=== PATIENT | female | born 1965 | race Hispanic/Latino ===

== ENCOUNTER 2017-11-13 21:01 | Emergency (ER) | payer MEDICAID, SELFPAY ==
[2017-11-13 21:03] VITALS: BP 107/72; PULSE 175; RESP 18; TEMP 36.9; O2SAT 97; BMI 27.8
[2017-11-13 21:10] VITALS: BP 122/87; PULSE 176; RESP 16; O2SAT 96
--- NOTE | 2017-11-13 21:21 | RAD_ITS ---
STUDY: X-RAY CHEST REASON FOR EXAM: Female, 52 years old. Palpitations TECHNIQUE: Single AP portable view of the chest. COMPARISON: None. FINDINGS: monitor and storage bin tender leads are present The lungs are clear and expanded. There is no demonstrated pleural abnormality. Normal size heart. Normal mediastinum and linda. Normal visualized pulmonary arteries. Normal visualized aortic arch and descending thoracic aorta. Normal visualized thoracic spine. Normal visualized ribs, clavicles, and shoulders. There is no demonstrated abnormality of the visualized soft tissue structures of the upper abdomen. RAD/Chest 1 View (Portable) IMPRESSION: Normal x-ray examination of the chest. Electronically Signed: Leonid Moore MD at 21:55 EDT , Service support ,
--- NOTE | 2017-11-13 21:21 | EKG12_ITS ---
Test Reason : SVT Blood Pressure : / mmHG Vent. Rate : 171 BPM Atrial Rate : 170 BPM P-R Int : 000 ms QRS Dur : 076 ms QT Int : 276 ms P-R-T Axes : 000 052 -49 degrees QTc Int : 465 ms Supraventricular tachycardia Nonspecific ST and T wave abnormality Abnormal ECG Confirmed by JAIRO SHARP, RAMONA ([id number]), online content editor LEIGHTON ESQUIVEL ([id number]) on 11/17/2017 2:53:19 PM Referred By: ESTER/MARIVEL Confirmed By:RAMONA GILL MD
[2017-11-13] MEDS: Adenosine 6 MG/2 ML Syringe IV (21:22)
[2017-11-13] MEDS: 0.9% Normal Saline 1,000 ML 150 ML IV (21:28)
[2017-11-13 21:32] LABS: Absolute Lymphocyte Count 3.55 X10^3/ul (0.83-4.51); Absolute Neutrophil Count 4.9 X10^3/uL (2.0-7.7); Basophil# 0.02 X10^3/uL; Basophil% 0.2 % (0-1); Eosinophil# 0.08 X10^3/uL; Eosinophils% 0.9 % (0-5); Hematocrit 43.2 % (37-47); Lymphocyte # 3.55 X10^3/ul (4.0); Lymphocyte % 38.5 % (19-41); Mean Corp Hgb Conc 34.7 g/gl (32-36); Mean Corpuscular Hgb 29.5 pg (27.0-32.0); Mean Corpuscular Volume 84.9 fL (81-99); Mean Platelet Vol. 9.5 fl (6.2-12.0); Monocyte# 0.72 X10^3/uL; Monocyte% 7.8 % (0-10); Neutrophil # 4.85 X10^3/uL (2.7-7.7); Neutrophil % 52.5 % (47-70); POSITIVE COUNT NO; POSITIVE DIFFERENTIAL NO; POSITIVE MORPHOLOGY NO; Platelet Count 314 K/mm3 (150-450); RBC Distribution Width CV 13.5 % (11.6-14.6); RBC Distribution Width SD 41.8 fl (35.1-43.9); Red Blood Count 5.09 M/mm3 (4.2-5.4); White Blood Count 9.2 K/mm3 (4.4-11.0)
[2017-11-13 21:44] LABS: Anion Gap 8 (5-15); BUN 11 mg/dL (7-18); BUN/Creat Ratio 15.2 RATIO (10-20); Calcium,Total 8.8 mg/dL (8.5-10.1); Chloride 107 mmol/L (98-107); Creatinine, Serum 0.72 mg/dL (0.55-1.02); EST Glomerular Filtration Rate 90 mL/min (>60); Est Glom Filt Rate - Afr Amer 108 mL/min (>60); Estimated Creatinine Clearance 82.25 ml/min; Glucose 90 mg/dL (74-106); Potassium 3.6 mmol/L (3.5-5.1); Sodium Level 140 mmol/L (136-145)
[2017-11-13] MEDS: Aspirin 81 MG TAB.CHEW 324 MG PO (21:46)
--- NOTE | 2017-11-13 22:18 | EKG12_ITS ---
Test Reason : REPEAT Blood Pressure : / mmHG Vent. Rate : 084 BPM Atrial Rate : 084 BPM P-R Int : 146 ms QRS Dur : 086 ms QT Int : 350 ms P-R-T Axes : -01 039 035 degrees QTc Int : 413 ms Normal sinus rhythm Normal ECG Confirmed by JAIRO SHARP, RAMONA ([id number]), photography editor LEIGHTON ESQUIVEL ([id number]) on 11/17/2017 2:54:19 PM Referred By: ESTER Confirmed By:RAMONA GILL MD
[2017-11-13 22:25] VITALS: BP 117/79; PULSE 83; RESP 15; O2SAT 96
[2017-11-13] MEDS: Metoprolol(XL)Succ 25 MG Tablet PO (22:27)
[2017-11-13 22:28] LABS: Bacteria 0 SEEN /hpf (None Seen); Mucous, Urine 0 SEEN /hpf (<or=2+); Red Blood Cells-Urine 0 SEEN /hpf (0-5); Squamous Epithelial Cells - UA 0 SEEN /hpf (5-10)
[2017-11-13 22:29] LABS: Color, Urine Yellow (Yellow); Glucose, Dipstick Normal (Normal); Ketone-Dipstick 15 mg/dl (Negative); Leukocyte Esterase-Dipstick 25 /ul (Negative); Nitrite-Dipstick Negative (Negative); Occult Blood-Urine 25 /ul (Negative); Protein-Dipstick Negative (Negative); Urine Bilirubin Dipstick Negative (Negative); Urine Clarity Clear (Clear); Urine Urobilinogen Normal (Normal)
[2017-11-13 22:36] LABS: White Blood Cells 0-5 SEEN /hpf (0-5)
[2017-11-13 22:47] VITALS: BP 117/79; PULSE 96; RESP 16; O2SAT 97
--- NOTE | 2017-11-13 22:55 | ED.VISSUMM ---
- ER Visit Summary Date of Service: 11/13/17 Chief Complaint: [Tachycardia] History of Present Illness: The patient is a 52 F [presents the emergency department with tachycardia that started around 4 PM today. Patient states that she went to her orthopedic surgeon's office and they noted that her that her heart was racing and they advised her to come to the emergency department. Patient states she has had multiple episodes like this and has had them about once every 3 months. Patient notices that sometimes when she eats hot food it triggers this reaction or when she becomes ill. Patient states that she is currently being treated for urinary tract infection and is on ciprofloxacin. Patient also had a little bit of a sore throat and has been to urgent care where performed a strep screen that was negative. Patient currently denies any significant chest discomfort. She denies feeling short of breath. Patient is never sought medical attention for her tachycardia.] Physical Examination: [HEENT-PERRLA, EOMI. Cranial nerves II through XII grossly intact. TMs clear. Mucous membranes moist. No adenopathy. Pharynx not erythematous. Uvula midline. No trismus. Cardiovascular-regular rate and tachycardic with a heart rate of 180. No murmurs auscultated. Lungs-clear to auscultation, chest wall stable without crepitus or subcu emphysema Abdomen-normoactive bowel sounds, soft, nontender, no rebound or rigidity, no peritoneal signs. Extremities-intact ?4, normal range of motion, normal pulses, atraumatic] Test Results: [EKG obtained on arrival showed SVT with a ventricular rate of [address] changes. CBC with differential was normal. Chemistries were normal. Troponin was less than 0.015. Chest x-ray showed nothing acute.] Urinalysis was normal. Repeat EKG after adenosine shows a normal sinus rhythm with no acute ST segment changes. No evidence of a delta wave. Emergency Department Course and Treatment: [Patient initially had vagal maneuvers attempted unsuccessfully. Patient was then given adenosine 6 mg IV and she returned to sinus rhythm. Patient case was discussed with Dr. Arshad who was covering for cardiology and asked that we start patient on Toprol-XL 25 mg daily. Patient will be referred to cardiology for follow-up.] Treatment Plan: [Patient will be started on Toprol and will be referred to cardiology] Disposition: [Discharged home in stable condition] Impression: [Supraventricular tachycardia] This note was generated with [employer] dictation software. It may contain incorrect words, spelling, and punctuation that were not noted in review of the chart prior to signing ED Disposition - Plan for ED Patient: Chief Complaint: Palpitations Referrals: Vicki Garcia MD [Primary Care Provider] -
--- NOTE | 2017-11-13 22:59 | ED.DEP ---
ED Disposition - Plan for ED Patient: Chief Complaint: Palpitations Instructions: ED Tachycardia Pat PSVT Prescriptions: Metoprolol Succinate [Toprol Xl] 25 mg PO DAILY #30 [id number] Referrals: Vicki Garcia MD [Primary Care Provider] - Steven Lopez MD [STAFF PHYSICIAN] - 3-5 Days
== END 2017-11-13 23:13 | disposition home or self-care (01) ==
LOC: ED 21:46
PROVIDERS: Emergency Provider Emergency Medicine; Family Provider Internal Medicine; PCP Internal Medicine
DX: I47.1 Supraventricular tachycardia (principal)
CPT/HCPCS: 71045; 80048; 81001; 84484; 85025; 93005; 96361; 96374; 99284; J7030; A4216; J0153

== ENCOUNTER → 2017-11-28 15:56 | Outpatient (CLI) | payer MEDICAID, SELFPAY ==
--- NOTE | 2017-11-28 15:58 | ECHOD_ITS ---
Reason For Study: ARRHYTHMIA Procedure This was a 2D Doppler, Color Flow transthoracic echocardiogram. Exam performed in department. Left Ventricle Normal LV size. Left ventricular systolic function is normal. The estimated ejection fraction is 64 %. Normal diastology for age. No regional wall motion abnormalities noted. Right Ventricle Normal RV size. Normal systolic function. Atria Normal left atrium. Normal right atrium. Mitral Valve Normal mitral valve. Tricuspid Valve Normal tricuspid valve. Mild (1+) tricuspid valve insufficiency. Pulmonary artery systolic pressure is 24 mmHg. Aortic Valve Normal aortic valve. Trisinus/trileaflet aortic valve. Pulmonic Valve Normal pulmonic valve. Great Vessels Normal aortic root. The pulmonary artery is normal size. Normal inferior vena cava. Pericardium/Pleural No pericardial effusion. MMode/2D Measurements & Calculations LVIDd: 5.0 cm IVSd: 0.75 cm Ao root diam: 3.1 cm LVIDs: 3.3 cm LVPWd: 0.80 cm LA dimension: 3.8 cm FS: 33.4 % LAV(MOD-bp): 52.8 ml LA A4 area: 17.9 cm2 RA A4 area: 12.3 cm2 LAV(MOD-bp) Indexed: 28.7 ml/m2 LAV(MOD-sp2): 53.8 ml LAV(MOD-sp4): 49.2 ml Time Measurements MV dec time: 0.26 sec Doppler Measurements & Calculations MV E max patel: 70.1 cm/sec Lat Peak E' Patel: 16.9 cm/sec Med Peak E' Patel: 9.2 cm/sec MV A max patel: 53.1 cm/sec E/E' lat: 4.1 E/E' med: 7.6 MV E/A: 1.3 Ao V2 max: 126.9 cm/sec LV V1 max: 104.1 cm/sec PA V2 max: 82.6 cm/sec Ao max P.4 mmHg LV V1 max P.3 mmHg TR max patel: 224.8 cm/sec TR max P.2 mmHg Interpretation Summary Normal LV size. Left ventricular systolic function is normal. The estimated ejection fraction is 64 %. Normal diastology for age. Mild (1+) tricuspid valve insufficiency. Pulmonary artery systolic pressure is 24 mmHg. Ordering Physician: Steven Lopez Referring Physician: Vicki Garcia M.D. Performed By: Shayla Verma, FABI, RVT
== END ==
PROVIDERS: Family Provider Internal Medicine; PCP Internal Medicine; Referring Provider Internal Medicine Cardiovascular Disease; Visit Provider Internal Medicine Cardiovascular Disease
DX: I47.1 Supraventricular tachycardia (principal)
CPT/HCPCS: 93306

== ENCOUNTER → 2018-02-02 17:16 | Outpatient (CLI) | payer MEDICAID, SELFPAY ==
[2018-02-02 13:28] VITALS: BMI 24.8
--- OUTSIDE RECORDS SUMMARY | 2018-05-07 09:43 | XMS RPT_ITS ---
:1965 Author Organization OHIP Support Name Relationship Address Phone HEATHER HELM Unavailable [address] + [place] [address] JOIE HELM Unavailable Unavailable + [place] [address] [facility]ICO[facility] Unavailable [address] + [place] [address] ALICJA HEATHER Unavailable [address] + [place] [address] [employer] Unavailable [address] + [place] [address] HEATHER HELM Unavailable [address] + [place] [address] [employer] Unavailable [address] + [place] [address] HEATHER HELM Unavailable [address] + [place] [address] [employer] Unavailable [address] + [place] [address] HEATHER HELM Unavailable [address] + [place] [address] [employer] Unavailable [address] + [place] [address] HEATHER HELM Unavailable [address] + [place] [address] [employer] Unavailable [address] + [place] [address] HEATHER HELM Unavailable [address] + [place] [address] [employer] Unavailable [address] + [place] [address] HEATHER HELM Unavailable [address] + [place] [address] [employer] Unavailable [address] + [place] [address] Care Team Providers Name Role Phone TALAMPAS, BENITA D Referring Unavailable KAISER, MARIZOL (SENIOR OPERATOR) Attending Unavailable KAISRE, MARIZOL (SENIOR OPERATOR) Referring Unavailable OLDER, JOLENE (TYPISTS SUPERVISOR) Attending Unavailable KAISER, MARIZOL (SENIOR OPERATOR) Attending Unavailable KAISER, MARIZOL (SENIOR OPERATOR) Referring Unavailable TALAMPAS, BENITA D Attending Unavailable Marcanthony, Janice Attending Unavailable Talampas, Benita Referring Unavailable Marcanthony, Janice Attending Unavailable Marcanthony, Janice Referring Unavailable Talampas, Benita Primary Care Unavailable Talampas, Benita Primary Care Unavailable Ungur, Remus Attending Unavailable Kilner, Carol Attending Unavailable Jessica, Steven Attending Unavailable Talampas, Benita Referring Unavailable Jessica, [place] Attending Unavailable Jessica, [place] Referring Unavailable Talampas, Benita Primary Care Unavailable Jessica, Steven Attending Unavailable Jessica, [place] Referring Unavailable Talampas, Benita Primary Care Unavailable Jessica, Steven Consulting Unavailable EshenauGlen hudson PA-C Attending Unavailable [place] PA-C Referring Unavailable Talampas, Benita Primary Care Unavailable PROBLEMS PROBLEMS DATE TYPE CONDITION / CODE ATTENDING STATUS SOURCE 02/02/2018 Unknown N39.0 - Urinary tract Marcanthony, Active [place] infection, site not [facility] specified / Hospital N39.0(ICD-10) Repository 11/28/2017 Unknown I47.1 - Jessica, [place] Active [facility] tachycardia / Hospital I47.1(ICD-10) Repository 11/28/2017 Active Encounter for NA Active [facility] screening for [facility] Main cardiovascular [place] disorders / Repository Z13.6(ICD-10) 05/22/2017 Active Hyperlipidemia, NA Active [facility] unspecified / Clinic Main E78.5(ICD-10) [place] Repository 05/22/2017 Active Unspecified symptoms MARIZOL KAISER Active [place] and signs involving (SENIOR OPERATOR) Clinic Main the genitourinary [place] system / R39.9(ICD-10) Repository 05/22/2017 Active Acute upper JOB MARIZOL Active [facility] respiratory infection, (SENIOR OPERATOR) Clinic Main unspecified / [place] J06.9(ICD-10) Repository 05/20/2017 Active Pure NA Active [facility] hypercholesterolemia, Clinic Main unspecified / [place] E78.00(ICD-10) Repository 05/20/2017 Active Encounter for NA Active [place] screening for diabetes [facility] Main mellitus / [place] Z13.1(ICD-10) Repository PROCEDURES PROCEDURES No Procedure Records FoundRESULTS RESULTS PROGRESS Observed: 02/04/2018 Status: COMPLETED Source: [place] 9:02 AM [facility] HNO ID: [id number] Author: Bill Feliz) Ria Service: (none) Author Type: Physician Mechanical System Technician Type: Progress Notes Filed: 02/04/2018 9:06 AM Note Text: Subjective HPI Patient presents with congestion, cough, mild sore throat for the past 4 days. States the sore throat really has not away. No vomiting or diarrhea. She does have a temperature 100.8. She did not check home. No chest pain or shortness of breath. She has had some chills. She did not get a flu shot this year. She is not a smoker. No history of asthma. She does have allergic rhinitis. She has been taking Claritin at home without any relief. Review of Systems Constitutional: Positive for chills and fever. HENT: Positive for congestion, ear pain and sore throat. Eyes: Negative. Respiratory: Positive for cough. Negative for sputum production, shortness of breath and wheezing. Cardiovascular: Negative. Gastrointestinal: Negative. Genitourinary: Negative. Skin: Negative. All other systems reviewed and are negative. PAST MEDICAL HISTORY Diagnosis Date - Anxiety state, unspecified situational depression and anxiety-divorce AND family issues- no treatment since 2009 - Depressive disorder, not elsewhere classified situational depression and anxiety-divorce AND family issues- no treatment since 2009 - SVT (supraventricular tachycardia) (HCC) only one episode; does not need medication; echo fine - [facility] Current Outpatient Prescriptions: DAILY MULTIVITAMIN TAB Take one(1) tablet daily. Disp: 0 Rfl: 0 ibuprofen (MOTRIN IB) 200 mg tablet Take 200 mg by mouth every 6 hours as needed. Disp: Rfl: loratadine (CLARITIN) 10 mg tablet Take 1 tablet by mouth once daily as needed. FOR ALLERGY SYMPTOMS Disp: 30 tablet Rfl: 11 Dffkfuuistwoxme-Kpbbmnvja-DR (BROMFED DM) 2-30-10 mg/5 mL syrup Take 10 mL by mouth four times daily as needed. Disp: 200 mL Rfl: 0 No current facility-administered medications for this visit. PAST SURGICAL HISTORY Procedure Laterality Date - REMOVAL OF OVARY/TUBE(S) Bilateral 05/2016 - STEREO LOC FOR BRST NDLE BX LT 6-9-08 left stereo FAMILY HISTORY Problem Relation Age of Onset - Diabetes Mother - Diabetes Father - Heart Father - Hypertension Father Social History Substance Use Topics - Smoking status: Never Smoker - Smokeless tobacco: Never Used - Alcohol use No BP 112/72 Pulse 100 Temp (!) 38.2 ?C (100.8 ?F) (Tympanic) Resp 18 Wt 68.4 kg (150 lb 12.8 oz) LMP 10/18/2010 SpO2 96% BMI 25.68 kg/m? Objective Physical Exam Constitutional: She is oriented to person, place, and time and well-developed, well-nourished, and in no distress. HENT: Head: Normocephalic and atraumatic. Right Ear: Tympanic membrane, external ear and ear canal normal. Left Ear: Tympanic membrane, external ear and ear canal normal. Nose: Mucosal edema and rhinorrhea present. Mouth/Throat: Uvula is midline, oropharynx is clear and moist and mucous membranes are normal. Neck: Normal range of motion. Neck supple. Cardiovascular: Normal rate, regular rhythm and normal heart sounds. Pulmonary/Chest: Effort normal and breath sounds normal. Neurological: She is alert and oriented to person, place, and time. Skin: Skin is warm and dry. No rash noted. Psychiatric: Affect and judgment normal. Nursing note and vitals reviewed. ASSESSMENT/PLAN: 1. Viral URI with cough - ICD9: 465.9, ICD10: J06.9, B97.89 (primary diagnosis) - Discussed viral etiology and rationale for treatment. - Symptomatic treatment with prn analgesia - Supportive care with fluids and rest - bromfed for symptoms 2. Sore throat - ICD9: 462, ICD10: J02.9 - Rapid Strep negative in the office today and Throat culture pending - Discussed supportive care treatment with fluids, rest and analgesia. - RAPID STREP TEST B/O - GROUP A STREPTOCOCCUS BY PCR JESUS SilverC GROUP A STREP BY Collected: 02/04/2018 Status: F Source: [place] PCR 7:50 AM [facility] REPOSITORY TYPE CODE TESTS RESULT OUT OF REFERENCE UNITS RANGE LAB GASSR Throat Swab GAS Specimen Source LAB PCRGAS Negative for Group A Strep Group A PCR Streptococcus by PCR. Result Comment: This test was developed and its performance characteristics determined by [facility] [place] ([facility]). It has not been cleared or approved by the FDA. -[facility] is regulated under CLIA as qualified to perform high-complexity testing. This test is used for clinical purposes. It should not be regarded as inv estigational or for research. Performed By: #### GASPCR #### [facility] [address] [place], [place] [address] CNOV Observed: 02/04/2018 Status: COMPLETED Source: [place] 6:15 AM [facility] REPOSITORY Office Visit (WSTR) DAVID HELM ([id number]) 1965 F Date Time Provider Department 02/04/18 6:15 AM BILL FAGAN) [facility] During your visit today, we recorded the following information about you: Temperature Pulse Respiration Blood pressure 100.8 degrees 100/minute 18/minute 112/72 Weight 68.4 kg Bill Fagan PA-C 02/04/2018 9:06 AM Signed Subjective HPI Patient presents with congestion, cough, mild sore throat for the past 4 days. States the sore throat really has not away. No vomiting or diarrhea. She does have a temperature 100.8. She did not check home. No chest pain or shortness of breath. She has had some chills. She did not get a flu shot this year. She is not a smoker. No history of asthma. She does have allergic rhinitis. She has been taking Claritin at home without any relief. Review of Systems Constitutional: Positive for chills and fever. HENT: Positive for congestion, ear pain and sore throat. Eyes: Negative. Respiratory: Positive for cough. Negative for sputum production, shortness of breath and wheezing. Cardiovascular: Negative. Gastrointestinal: Negative. Genitourinary: Negative. Skin: Negative. All other systems reviewed and are negative. PAST MEDICAL HISTORY Diagnosis Date - Anxiety state, unspecified situational depression and anxiety-divorce AND family issues- no treatment since 2009 - Depressive disorder, not elsewhere classified situational depression and anxiety-divorce AND family issues- no treatment since 2009 - SVT (supraventricular tachycardia) (HCC) only one episode; does not need medication; echo fine - [place] Current Outpatient Prescriptions: DAILY MULTIVITAMIN TAB Take one(1) tablet daily. Disp: 0 Rfl: 0 ibuprofen (MOTRIN IB) 200 mg tablet Take 200 mg by mouth every 6 hours as needed. Disp: Rfl: loratadine (CLARITIN) 10 mg tablet Take 1 tablet by mouth once daily as needed. FOR ALLERGY SYMPTOMS Disp: 30 tablet Rfl: 11 Klvgkuertmsmjkp-Hexmxmzor-OR (BROMFED DM) 2-30-10 mg/5 mL syrup Take 10 mL by mouth four times daily as needed. Disp: 200 mL Rfl: 0 No current facility-administered medications for this visit. PAST SURGICAL HISTORY Procedure Laterality Date - REMOVAL OF OVARY/TUBE(S) Bilateral 05/2016 - STEREO LOC FOR BRST NDLE BX LT 6-9-08 left stereo FAMILY HISTORY Problem Relation Age of Onset - Diabetes Mother - Diabetes Father - Heart Father - Hypertension Father Social History Substance Use Topics - Smoking status: Never Smoker - Smokeless tobacco: Never Used - Alcohol use No BP 112/72 Pulse 100 Temp (!) 38.2 ?C (100.8 ?F) (Tympanic) Resp 18 Wt 68.4 kg (150 lb 12.8 oz) LMP 10/18/2010 SpO2 96% BMI 25.68 kg/m? Objective Physical Exam Constitutional: She is oriented to person, place, and time and well-developed, well-nourished, and in no distress. HENT: Head: Normocephalic and atraumatic. Right Ear: Tympanic membrane, external ear and ear canal normal. Left Ear: Tympanic membrane, external ear and ear canal normal. Nose: Mucosal edema and rhinorrhea present. Mouth/Throat: Uvula is midline, oropharynx is clear and moist and mucous membranes are normal. Neck: Normal range of motion. Neck supple. Cardiovascular: Normal rate, regular rhythm and normal heart sounds. Pulmonary/Chest: Effort normal and breath sounds normal. Neurological: She is alert and oriented to person, place, and time. Skin: Skin is warm and dry. No rash noted. Psychiatric: Affect and judgment normal. Nursing note and vitals reviewed. ASSESSMENT/PLAN: 1. Viral URI with cough - ICD9: 465.9, ICD10: J06.9, B97.89 (primary diagnosis) - Discussed viral etiology and rationale for treatment. - Symptomatic treatment with prn analgesia - Supportive care with fluids and rest - bromfed for symptoms 2. Sore throat - ICD9: 462, ICD10: J02.9 - Rapid Strep negative in the office today and Throat culture pending - Discussed supportive care treatment with fluids, rest and analgesia. - RAPID STREP TEST B/O - GROUP A STREPTOCOCCUS BY PCR Bill Fagan PA-C Referring Provider: SELF [200] Allergies As of Date: 02/04/2018 Noted Allergy Reaction CEPHALEXIN 12/14/2008 2 - Rash Date Reviewed: 02/04/2018 Reviewed by: Carmen Ewing LPN - Fully Assessed Reason for Visit: ST, KIM, and yellow drainage [Other] Cmt: x 4 days Primary Visit Diagnosis:Viral URI with cough [J06.9, B97.89] Other Visit Diagnosis:Sore throat [J02.9] Order(s):RAPID STREP TEST B/O [[id number]] Order #: [id number] GROUP A STREPTOCOCCUS BY PCR [SQGASPCR] Order #: [id number] Wquuplowfprajjj-Qdzohwtun-DH (BROMFED DM) 2-30-10 mg/5 mL syrupTake 10 mL by mouth four times daily as needed.Disp: 200 mLRfl: 0 Prescriptions as of 02/04/2018 Sig: * DAILY MULTIVITAMIN TABLET Take one(1) tablet daily. IBUPROFEN 200 MG TABLET Take 200 mg by mouth every 6 * LORATADINE 10 MG TABLET Take 1 tablet by mouth once d* BROMPHENIRAMINE-PSEUDOEPHEDRI* Take 10 mL by mouth four time* Problem List As Of Date 02/04/2018 Noted Resolved Unspecified noninflammatory disorder of ovary, *INVALID FOR*06/06/2016 More... More... UNSP ABNORMAL MAMMOGRAM [R92.8] INVALID FOR* Other and unspecified ovarian cyst [N83.209] INVALID FOR*04/19/2016 Allergic rhinitis, cause unspecified [J30.9] INVALID FOR* Overweight [E66.3] INVALID FOR* Ovarian cyst, bilateral [N83.201, N83.202] INVALID FOR*06/06/2016 Bilateral tubo-ovarian mass [N83.8] INVALID FOR*06/06/2016 Prescriptions ordered this encounter Disp Refills Start End BSEDOSMZQDKVFTG-GETJCPKSYEFPCWE-DH 2* 200 * 0 02/04/2018 Route: ORAL Sig: Take 10 mL by mouth four times daily as needed. Encounter Status:Closed by BILL FAGAN PA-C on 02/04/18 Observed: 02/02/2018 Status: F Source: [place] CULTURE, URINE 6:[address] [facility] REPOSITORY Urine Culture ORGANISM 1: Mixed Gram Positive Organisms Colwell Count <1000 MIX CULTURE Mixed contaminants. Submit a new specimen if indicated. Performed By: #### [id number] #### [facility] [address] [place], [address] QUALITY FACILITATOR OFFICE VISIT Observed: 02/02/2018 Status: F Source: [place] REPORT 2:[address] [facility] REPOSITORY [facility] [address] [place] [address] OFFICE VISIT Date of Service: 02/02/18 MR#: [id number] Acct: [id number] Name: DAVID HELM Rep #: [id number] : 1965 Provider: Janice Simons MD Age/Sex: 52/F Location: [facility] Status: Signed Intake Vital Signs02/02/18 Height 5 ft 5 in 02/02/18 Weight: 149 lb 4 oz 02/02/18 Body Mass Index (BMI) 24.8 02/02/18 Blood Pressure 120/80 Intake Visit Reasons: recurrent UTI Is patient in pain?: No Allergies cephalexin Allergy (Verified 02/02/18 13:29) Rash ciprofloxacin [From Cipro] Adverse Reaction (Verified 02/02/18 13:29) mental status changes Medications loratadine 10 mg tablet PO 30 Days #30 tab 11/19/17 [History Confirmed 02/02/18] multivitamin tablet 1 tab PO DAILY 10/03/18 [History Confirmed 02/02/18] Is last menstrual period known: No Post menopausal: No Patient : No : No Nurse's Note: Pt states she is not here for UTI even though she would like it checked. She states she is here for questions relating to possible bladder dropping. 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 she denies any urinary complaints or vaginal bulge. she denies any dyspareunia. Female Reproductive History Questions: Metorrhagia: No, Sexually active: Yes, Dyspareunia: No, PCB: No Pregancy History 5 Elective abortions Hx Para 5 Spontaneous abortions Past Pregnancies Del. DateName GA/Weeks Outcome Route Bth WeighInfant GeLabor LgtAnesthesiDel LocatProvider FOB t n h a n ROS Const Constitutional: Denies poor appetite, headache(s), fever(s), increased appetite, weight gain, weight loss or fatigue GI GI: Reports as per HPI; denies vomiting, nausea, abdominal pain or constipation Exam Const General: cooperative, healthy appearing, comfortable, no acute distress, well developed Nutritional Appearance: average body habitus Orientation: alert HENMN Head: normal to inspection, normocephalic Neck Neck: normal visual inspection, trachea midline Thyroid: thyroid normal Resp Effort AND Inspection: normal respiratory effort GI Inspection: normal to inspection, non-distended Palpation: soft, no hepatosplenomegaly General: bladder normal to palpation External Female Exam: normal external appearance, normal appearance of the urethra Urethra: normal appearance of the urethra, normal palpation, no discharge Speculum Exam - Vagina: normal appearance of the vagina, normal vaginal discharge Speculum Exam - Cervix: normal appearance of the cervix, nontender Bimanual Exam- Vagina AND Uterus: bladder normal to palpation, No cervical tenderness, normal bimanual exam, uterine size normal, uterine shape normal, uterine mobility normal, uterine consistency normal, normal cervical palpation, uterus non-tender Bimanual Exam- Adnexa, other: normal adnexae, adnexae mobile, no adnexal masses, pelvic support normal Pelvic Support: normal Skin General: no rashes or lesions noted Results [facility] Office Urine Color STRAW Last Edit by Anabela Rivers on 02/02/18 14:12 Assessment AND Plan Problems 1. Pelvic pressure in female R10.2 Plan discussed early prolapse may be causing symptoms but nothing clinically significantly perceptible at this time, reassurance given Orders Orders: Coding Level of Care Code Off vis,est,level 3 Diagnoses Pelvic pressure in female R10.2 02/02/18 1421 <Electronically signed by Janice Simons MD> Date Janice Simons MD Cosigner Signature: Date (if applicable) CC: PROGRESS Observed: 12/02/2017 Status: COMPLETED Source: [place] 4:46 PM [facility] REPOSITORY O ID: [id number] Author: Benita Garcia Service: (none) Author Type: Physician Type: Progress Notes Filed: 12/14/2017 11:39 PM Note Text: HISTORY David Helm is a 52 year old lady here for yearly exam and follow up appointment. Really cut out sugars including pop. Constipation issues--could drink more fluids. Going every day but still straining. Has IFOBT kit--will bring back PAST MEDICAL HISTORY Diagnosis Date - Anxiety state, unspecified situational depression and anxiety-divorce AND family issues- no treatment since 2009 - Depressive disorder, not elsewhere classified situational depression and anxiety-divorce AND family issues- no treatment since 2009 - SVT (supraventricular tachycardia) (HCC) only one episode; does not need medication; echo fine - [place] Current Outpatient Prescriptions: loratadine (CLARITIN) 10 mg tablet Take 1 tablet by mouth once daily as needed. FOR ALLERGY SYMPTOMS ibuprofen (MOTRIN IB) 200 mg tablet Take 200 mg by mouth every 6 hours as needed. DAILY MULTIVITAMIN TAB Take one(1) tablet daily. No current facility-administered medications for this visit. ALLERGIES Allergen Reactions - Cephalexin Rash FAMILY HISTORY Problem Relation Age of Onset - Diabetes Mother - Diabetes Father - Heart Father - Hypertension Father Social History Marital status: Spouse name: Years of education: 16 Number of children: 5 Occupational History Occupation Employer Comment unemployed=disabil* Social History Main Topics Smoking status: Never Smoker Smokeless tobacco: Never Used Alcohol use: No Drug use: No Sexual activity: Not Currently No more caffeine. REVIEW OF SYSTEMS Aside from above, Constitutional, HEENT, CV, PULM, GI, , PSYCH, DERM, HEM/ONC, NEURO negative. PHYSICAL EXAMINATION: Blood pressure 112/68, pulse 72, resp. rate 16, height 163.2 cm (5' 4.25), weight 74.3 kg (163 lb 12.8 oz), last menstrual period 10/18/2010. Body mass index is 27.9 kg/m?. Last 5 Encounter BP Readings: Date: BP: 12/02/2017 112/68 11/11/2017 108/64 07/28/2017 110/60 07/16/2017 110/80 05/22/2017 122/60 Last 5 Encounter Wt Readings: Date: Wt: 12/02/2017 74.3 kg (163 lb 12.8 oz) 11/11/2017 76.2 kg (168 lb) 07/28/2017 78.5 kg (173 lb) 07/16/2017 79.4 kg (175 lb) 05/22/2017 80.3 kg (177 lb) General appearance: well appearing, in no acute distress, well-hydrated, well nourished Skin: Skin color, texture, turgor normal. No significant rashes or lesions. Skin tags around neck noted. Head: Normal Eyes: Anicteric sclera. Pupils are equally round and reactive to light. Extraocular movements are intact. Ears: External ears normal. Canals clear. TM's unremarkable. Nose/Sinuses: negative Oropharynx: Lips, mucosa, and tongue normal. Teeth and gums normal. Oropharynx normal. Neck: Neck supple, no adenopathy; thyroid symmetric, normal size, no bruits. Lungs: Lungs clear to auscultation Heart: negative. RRR without murmur, gallop, or rubs. No ectopy. Abdomen: Abdomen soft, non-tender. Bowel sounds normal. No masses, organomegaly Extremities: Extremities normal. No deformities, edema, or skin discoloration. Good capillary refill. Musculoskeletal: grossly normal Peripheral pulses: Normal Neuro: Gait normal. Reflexes normal and symmetric. Sensation grossly intact. No gross focal neurological deficits. Labs reviewed. Component Latest Ref Rng AND Units 03/14/2015 09/04/2015 05/18/2016 05/20/2017 11/28/2017 WBC 3.70 - 11.00 k/uL 5.87 6.64 6.42 RBC 3.90 - 5.20 m/uL 4.95 4.82 4.97 Hemoglobin 11.5 - 15.5 g/dL 14.6 14.2 14.1 Hematocrit 36.0 - 46.0 % 42.3 42.9 43.9 MCV 80.0 - 100.0 fL 85.5 89.0 88.3 MCH 26.0 - 34.0 pG 29.5 29.5 28.4 MCHC 30.5 - 36.0 g/dL 34.5 33.1 32.1 RDW-CV 11.5 - 15.0 % 13.3 13.9 12.9 Platelet Count 150 - 400 k/uL 309 311 309 MPV 9.0 - 12.7 fL 10.2 10.0 10.1 Neut% % 58.4 53.5 62.7 Abs Neut (ANC) 1.45 - 7.50 k/uL 3.43 3.56 4.03 Lymph% % 33.2 38.3 30.7 Abs Lymph 1.00 - 4.00 k/uL 1.[address]% % 7.[address] 0[address]00 - 0.86 k/uL 0.43 0.43 0.37 Eosin% % 0.9 1.2 0.5 Abs Eosin 0.00 - 0.45 k/uL 0.05 0.08 0.03 Baso% % 0.2 0.5 0.3 Abs Baso 0.00 - 0.10 k/uL 0.01 0.03 0.02 Nucleated Reds 0 /100 WBC 0.0 Absolute nRBC k/uL 0.00 Diff Type Auto Diff Auto Diff Auto Diff Protein, Total 6.3 - 8.0 g/dL 7.3 7.9 7.8 Albumin 3.9 - 4.9 g/dL 4.4 4.7 4.7 Calcium 8.5 - 10.2 mg/dL 9.0 8.7 9.3 9.6 Bilirubin, Total 0.2 - 1.3 mg/dL 0.5 0.6 0.8 Alkaline Phosphatase 34 - 123 U/L 75 73 66 AST 13 - 35 U/L 20 20 17 Glucose 74 - 99 mg/dL 73 90 85 68 (L) BUN 7 - 21 mg/dL 12 11 12 9 Creatinine 0.58 - 0.96 mg/dL 0.65 (L) 0.61 (L) 0.68 0.66 Sodium 136 - 144 mmol/L 143 139 143 139 Potassium 3.7 - 5.1 mmol/L 4.0 3.8 4.0 3.7 Chloride 97 - 105 mmol/L 103 101 102 101 CO2 22 - 30 mmol/L 26 26 27 25 Anion Gap 9 - 18 mmol/L 14 12 14 13 ALT 7 - 38 U/L 16 16 11 eGFR- >60 >60 >60 >60 eGFR-All Other Races . >60 >60 >60 >60 Triglyceride <150 mg/dL 76 92 122 78 Cholesterol, Total <200 mg/dL 166 209 (H) 209 (H) 176 HDL Cholesterol >39 mg/dL 49 (L) 47 (L) 52 46 VLDL Cholesterol <30 mg/dL 15 18 24 16 LDL Cholesterol <100 mg/dL 102 144 (H) 133 (H) 114 (H) Fasting Time hrs FASTING 12 9 12 TC:HDL Ratio <5.10 3.39 4.45 4.02 3.83 LDL:HDL Ratio <2.54 2.08 3.06 2.56 (H) 2.48 Non HDL Cholesterol <130 mg/dL 117 162 (H) 157 (H) 130 (H) Hemoglobin A1C 4.3 - 5.6 % 5.2 Estimated Average Glucose mg/dL 103 TSH 0.400 - 5.500 uU/mL 0.454 ASCVD risk 1% in next 10 years. ASSESSMENT AND PLAN See diagnoses and orders Encounter Diagnosis ICD-10-CM 1. Routine medical exam Z00.00 Healthy exam. Patient here for yearly exam and follow up. Above issues addressed with patient. Patient involved in shared decision making for management of medical issues. History and medications reviewed. Epic updated as needed Refills taken care of and meds adjusted as indicated after reviewed history, exam and labs. Health Maintenance reviewed. Updated record and/or ordered tests as recorded. Encouraged on efforts at healthy diet and regular exercise and adequate sleep. Benita Garcia MD CNOV Observed: 12/02/2017 Status: COMPLETED Source: [place] 4:20 PM [facility] REPOSITORY Office Visit (INTMWS) DAVID HELM ([id number]) 1965 F Date Time Provider Department 12/02/17 4:20 PM BENITA GARCIA INTMWS During your visit today, we recorded the following information about you: Pulse Respiration Blood pressure Weight 72/minute 16/minute 112/68 74.3 kg Height 1.632 m Benita Garcia MD 12/14/2017 11:39 PM Signed HISTORY David Helm is a 52 year old lady here for yearly exam and follow up appointment. Really cut out sugars including pop. Constipation issues--could drink more fluids. Going every day but still straining. Has IFOBT kit--will bring back PAST MEDICAL HISTORY Diagnosis Date - Anxiety state, unspecified situational depression and anxiety-divorce AND family issues- no treatment since 2009 - Depressive disorder, not elsewhere classified situational depression and anxiety-divorce AND family issues- no treatment since 2009 - SVT (supraventricular tachycardia) (HCC) only one episode; does not need medication; echo fine - [place] Current Outpatient Prescriptions: loratadine (CLARITIN) 10 mg tablet Take 1 tablet by mouth once daily as needed. FOR ALLERGY SYMPTOMS ibuprofen (MOTRIN IB) 200 mg tablet Take 200 mg by mouth every 6 hours as needed. DAILY MULTIVITAMIN TAB Take one(1) tablet daily. No current facility-administered medications for this visit. ALLERGIES Allergen Reactions - Cephalexin Rash FAMILY HISTORY Problem Relation Age of Onset - Diabetes Mother - Diabetes Father - Heart Father - Hypertension Father Social History Marital status: Spouse name: Years of education: 16 Number of children: 5 Occupational History Occupation Employer Comment unemployed=disabil* Social History Main Topics Smoking status: Never Smoker Smokeless tobacco: Never Used Alcohol use: No Drug use: No Sexual activity: Not Currently No more caffeine. REVIEW OF SYSTEMS Aside from above, Constitutional, HEENT, CV, PULM, GI, , PSYCH, DERM, HEM/ONC, NEURO negative. PHYSICAL EXAMINATION: Blood pressure 112/68, pulse 72, resp. rate 16, height 163.2 cm (5' 4.25), weight 74.3 kg (163 lb 12.8 oz), last menstrual period 10/18/2010. Body mass index is 27.9 kg/m?. Last 5 Encounter BP Readings: Date: BP: 12/02/2017 112/68 11/11/2017 108/64 07/28/2017 110/60 07/16/2017 110/80 05/22/2017 122/60 Last 5 Encounter Wt Readings: Date: Wt: 12/02/2017 74.3 kg (163 lb 12.8 oz) 11/11/2017 76.2 kg (168 lb) 07/28/2017 78.5 kg (173 lb) 07/16/2017 79.4 kg (175 lb) 05/22/2017 80.3 kg (177 lb) General appearance: well appearing, in no acute distress, well-hydrated, well nourished Skin: Skin color, texture, turgor normal. No significant rashes or lesions. Skin tags around neck noted. Head: Normal Eyes: Anicteric sclera. Pupils are equally round and reactive to light. Extraocular movements are intact. Ears: External ears normal. Canals clear. TM's unremarkable. Nose/Sinuses: negative Oropharynx: Lips, mucosa, and tongue normal. Teeth and gums normal. Oropharynx normal. Neck: Neck supple, no adenopathy; thyroid symmetric, normal size, no bruits. Lungs: Lungs clear to auscultation Heart: negative. RRR without murmur, gallop, or rubs. No ectopy. Abdomen: Abdomen soft, non-tender. Bowel sounds normal. No masses, organomegaly Extremities: Extremities normal. No deformities, edema, or skin discoloration. Good capillary refill. Musculoskeletal: grossly normal Peripheral pulses: Normal Neuro: Gait normal. Reflexes normal and symmetric. Sensation grossly intact. No gross focal neurological deficits. Labs reviewed. Component Latest Ref Rng AND Units 03/14/2015 09/04/2015 05/18/2016 05/20/2017 11/28/2017 WBC 3.70 - 11.00 k/uL 5.87 6.64 6.42 RBC 3.90 - 5.20 m/uL 4.95 4.82 4.97 Hemoglobin 11.5 - 15.5 g/dL 14.6 14.2 14.1 Hematocrit 36.0 - 46.0 % 42.3 42.9 43.9 MCV 80.0 - 100.0 fL 85.5 89.0 88.3 MCH 26.0 - 34.0 pG 29.5 29.5 28.4 MCHC 30.5 - 36.0 g/dL 34.5 33.1 32.1 RDW-CV 11.5 - 15.0 % 13.3 13.9 12.9 Platelet Count 150 - 400 k/uL 309 311 309 MPV 9.0 - 12.7 fL 10.2 10.0 10.1 Neut% % 58.4 53.5 62.7 Abs Neut (ANC) 1.45 - 7.50 k/uL 3.43 3.56 4.03 Lymph% % 33.2 38.3 30.7 Abs Lymph 1.00 - 4.00 k/uL 1.[address]% % 7.[address] 0[address]00 - 0.86 k/uL 0.43 0.43 0.37 Eosin% % 0.9 1.2 0.5 Abs Eosin 0.00 - 0.45 k/uL 0.05 0.08 0.03 Baso% % 0.2 0.5 0.3 Abs Baso 0.00 - 0.10 k/uL 0.01 0.03 0.02 Nucleated Reds 0 /100 WBC 0.0 Absolute nRBC k/uL 0.00 Diff Type Auto Diff Auto Diff Auto Diff Protein, Total 6.3 - 8.0 g/dL 7.3 7.9 7.8 Albumin 3.9 - 4.9 g/dL 4.4 4.7 4.7 Calcium 8.5 - 10.2 mg/dL 9.0 8.7 9.3 9.6 Bilirubin, Total 0.2 - 1.3 mg/dL 0.5 0.6 0.8 Alkaline Phosphatase 34 - 123 U/L 75 73 66 AST 13 - 35 U/L 20 20 17 Glucose 74 - 99 mg/dL 73 90 85 68 (L) BUN 7 - 21 mg/dL 12 11 12 9 Creatinine 0.58 - 0.96 mg/dL 0.65 (L) 0.61 (L) 0.68 0.66 Sodium 136 - 144 mmol/L 143 139 143 139 Potassium 3.7 - 5.1 mmol/L 4.0 3.8 4.0 3.7 Chloride 97 - 105 mmol/L 103 101 102 101 CO2 22 - 30 mmol/L 26 26 27 25 Anion Gap 9 - 18 mmol/L 14 12 14 13 ALT 7 - 38 U/L 16 16 11 eGFR- >60 >60 >60 >60 eGFR-All Other Races . >60 >60 >60 >60 Triglyceride <150 mg/dL 76 92 122 78 Cholesterol, Total <200 mg/dL 166 209 (H) 209 (H) 176 HDL Cholesterol >39 mg/dL 49 (L) 47 (L) 52 46 VLDL Cholesterol <30 mg/dL 15 18 24 16 LDL Cholesterol <100 mg/dL 102 144 (H) 133 (H) 114 (H) Fasting Time hrs FASTING 12 9 12 TC:HDL Ratio <5.10 3.39 4.45 4.02 3.83 LDL:HDL Ratio <2.54 2.08 3.06 2.56 (H) 2.48 Non HDL Cholesterol <130 mg/dL 117 162 (H) 157 (H) 130 (H) Hemoglobin A1C 4.3 - 5.6 % 5.2 Estimated Average Glucose mg/dL 103 TSH 0.400 - 5.500 uU/mL 0.454 ASCVD risk 1% in next 10 years. ASSESSMENT AND PLAN See diagnoses and orders Encounter Diagnosis ICD-10-CM 1. Routine medical exam Z00.00 Healthy exam. Patient here for yearly exam and follow up. Above issues addressed with patient. Patient involved in shared decision making for management of medical issues. History and medications reviewed. Epic updated as needed Refills taken care of and meds adjusted as indicated after reviewed history, exam and labs. Health Maintenance reviewed. Updated record and/or ordered tests as recorded. Encouraged on efforts at healthy diet and regular exercise and adequate sleep. Benita Garcia MD Referring Provider: SELF [200] Allergies As of Date: 12/02/2017 Noted Allergy Reaction CEPHALEXIN 12/14/2008 2 - Rash Date Reviewed: 12/02/2017 Reviewed by: Delia Choudhury LPN - Fully Assessed Reason for Visit: Yearly Exam [187] Primary Visit Diagnosis:Routine medical exam [Z00.00] Prescriptions as of 12/02/2017 Sig: LORATADINE 10 MG TABLET Take 1 tablet by mouth once d* IBUPROFEN 200 MG TABLET Take 200 mg by mouth every 6 * * DAILY MULTIVITAMIN TABLET Take one(1) tablet daily. Problem List As Of Date 12/02/2017 Noted Resolved Unspecified noninflammatory disorder of ovary, *INVALID FOR*06/06/2016 More... More... UNSP ABNORMAL MAMMOGRAM [R92.8] INVALID FOR* Other and unspecified ovarian cyst [N83.209] INVALID FOR*04/19/2016 Allergic rhinitis, cause unspecified [J30.9] INVALID FOR* Overweight [E66.3] INVALID FOR* Ovarian cyst, bilateral [N83.201, N83.202] INVALID FOR*06/06/2016 Bilateral tubo-ovarian mass [N83.8] INVALID FOR*06/06/2016 Disposition: Return in about 1 year (around 12/02/2018) for Yearly exam and follow up (40 min). Follow-up and Disposition History Recorded Encounter Status:Closed by BENITA GARCIA MD on 12/14/17 ECHOCARDIOGRAM COMPLETE Observed: 11/28/2017 Status: F Source: [place] 10:[address] [facility] REPOSITORY [facility] Cardiovascular Services [address] [place] [id number] Echo Complete 11/28/17 1606 MR#: [id number] Acct: [id number] Name: DAVID HELM Rep #: [id number] : 1965 52 From: Steven Lopez MD Attending Dr: Steven Lopez MD Status: REG CLI Ordering Dr: Steven Lopez MD Date: 11/28/17 Location: [facility] Sex: F H Admitted: Reason For Study: ARRHYTHMIA Procedure This was a 2D Doppler, Color Flow transthoracic echocardiogram. Exam performed in department. Left Ventricle Normal LV size. Left ventricular systolic function is normal. The estimated ejection fraction is 64 %. Normal diastology for age. No regional wall motion abnormalities noted. Right Ventricle Normal RV size. Normal systolic function. Atria Normal left atrium. Normal right atrium. Mitral Valve Normal mitral valve. Tricuspid Valve Normal tricuspid valve. Mild (1+) tricuspid valve insufficiency. Pulmonary artery systolic pressure is 24 mmHg. Aortic Valve Normal aortic valve. Trisinus/trileaflet aortic valve. Pulmonic Valve Normal pulmonic valve. Great Vessels Normal aortic root. The pulmonary artery is normal size. Normal inferior vena cava. Pericardium/Pleural No pericardial effusion. MMode/2D Measurements AND Calculations LVIDd: 5.0 cm IVSd: 0.75 cm Ao root diam: 3.1 cm LVIDs: 3.3 cm LVPWd: 0.80 cm LA dimension: 3.8 cm FS: 33.4 % LAV(MOD-bp): 52.8 ml LA A4 area: 17.9 cm2 RA A4 area: 12.3 cm2 LAV(MOD-bp) Indexed: 28.7 ml/m2 LAV(MOD-sp2): 53.8 ml LAV(MOD-sp4): 49.2 ml Time Measurements MV dec time: 0.26 sec Doppler Measurements AND Calculations MV E max patel: 70.1 cm/sec Lat Peak E' Patel: 16.9 cm/sec Med Peak E' Patel: 9.2 cm/sec MV A max patel: 53.1 cm/sec E/E' lat: 4.1 E/E' med: 7.6 MV E/A: 1.3 Ao V2 max: 126.9 cm/sec LV V1 max: 104.1 cm/sec PA V2 max: 82.6 cm/sec Ao max P.4 mmHg LV V1 max P.3 mmHg TR max patel: 224.8 cm/sec TR max P.2 mmHg Interpretation Summary Normal LV size. Left ventricular systolic function is normal. The estimated ejection fraction is 64 %. Normal diastology for age. Mild (1+) tricuspid valve insufficiency. Pulmonary artery systolic pressure is 24 mmHg. Ordering Physician: Steven Lopez Referring Physician: Benita Garcia M.D. Performed By: Shayla Verma RDCS, RVT 11/28/17 2216 Date Steven Lopez MD CC: Steven Lopez MD; Benita Garcia MD Date Dictated: 11/28/17 1606 Date Transcribed: 11/28/172215 Play Writer: Signed COMP METABOLIC PANEL Collected: 11/28/2017 Status: F Source: [place] 1:55 PM [facility] REPOSITORY TYPE CODE TESTS RESULT OUT OF REFERENCE UNITS RANGE LAB TP 6.3-8.0 g/dL Protein, Total 7.8 LAB ALB 3.9-4.9 g/dL Albumin 4.7 LAB CA 8.5-10.2 mg/dL Calcium, Total 9.6 LAB TBIL 0.2-1.3 mg/dL Bilirubin, Total 0.8 LAB ALKP 34-123 U/L Alkaline Phosphatase 66 LAB AST 13-35 U/L AST 17 LAB GLU 74-99 mg/dL Low Glucose 68 Result Comment: The [place] Diabetes Association (ADA) provides guidance for cutoff values for fasting glucose and random glucose. The ADA defines fasting as no caloric intake for at least 8 hours. Fas ting plasma glucose results between 100 to 125 mg/dL indicate increased risk for diabetes (prediabetes). Fasting plasma glucose results greater than or equal to 126 mg/dL meet the criteria for diagnosis of diabetes. In the absence of unequivocal hyperglycemia, results should be confirmed by repeat testing. In a patient with classic symptoms of hyperglycemia or hyperglycemic crisis, random plasma glucose results greater than or equal to 200 mg/dL meet the criteria for diagnosis of diabetes. Reference: Standards of Medical Care in Diabetes 2016, [place] Diabetes Association. Diabetes Care. 2016.39(Suppl 1). LAB BUN 7-21 mg/dL BUN 9 LAB CRET 0.58-0.96 mg/dL Creatinine 0.66 LAB NA 136-144 mmol/L Sodium 139 LAB K 3.7-5.1 mmol/L Potassium 3.7 LAB CL 97-105 mmol/L Chloride 101 LAB CO2 22-30 mmol/L CO2 25 LAB AGAP 9-18 mmol/L Anion Gap 13 LAB ALT 7-38 U/L ALT 11 LAB GFRAA eGFR- Amer. >60 LAB GFRNAA . eGFR-All Other Races >60 Result Comment: eGFR (Estimated GFR) Units of measure: mL/min/1.73 meters squared eGFR is derived from the reexpressed MDRD Study equation using the following parameters: serum creatinine, age, gender and race. The creatinine assay has been calibrated to be traceable to IDMS. An eGFR <60 mL/min/1.73m2 for >3 months is consistent with chronic kidney disease. Refer to KDOQI guidelines for clinical interpretation. In patients with unstable renal function, e.g. those with acute kidney injury, the eGFR may not accurately reflect actual GFR. Performed By: #### CMP, LIPB, HBA1C #### [facility] [address] [place], [place] [address] LIPID PANEL, BASIC Collected: 11/28/2017 Status: F Source: [place] 1:55 PM [facility] REPOSITORY TYPE CODE TESTS RESULT OUT OF REFERENCE UNITS RANGE LAB CHOL <200 mg/dL Cholesterol 176 Result Comment: <200 mg/dL, Desirable 200-239 mg/dL, Borderline high >239 mg/dL, High LAB TRIGLY <150 mg/dL Triglyceride 78 Result Comment: <150 mg/dL, Normal 150-199 mg/dL, Borderline high 200-499 mg/dL, High >499 mg/dL, Very high LAB HDL >39 mg/dL HDL-Cholesterol 46 Result Comment: 40-59 mg/dL, Acceptable >59 mg/dL, High: Negative risk factor for coronary heart disease <40 mg/dL, Low: Positive risk factor for coronary heart disease LAB LDL <100 mg/dL LDL-Cholesterol High 114 Result Comment: <100 mg/dL, Optimal 100-129 mg/dL, Near optimal/above optimal 130-159 mg/dL, Borderline high 160-189 mg/dL, High >189 mg/dL, Very high Secondary prevention optimal LDL Cholesterol levels are recommended to be < 70 mg/dL LAB NONHDL <130 mg/dL Non HDL High Cholesterol 130 Result Comment: <130 mg/dL, Optimal 130-159 mg/dL, Near optimal/above optimal 160-189 mg/dL, Borderline high 190-219 mg/dL, High >219 mg/dL, Very high Secondary prevention optimal non HDL Cholesterol levels are recommended to be < 100 mg/dL LAB FT hrs Fasting Time 12 LAB VLDL <30 mg/dL VLDL Cholesterol 16 LAB TCHDL <5.10 TC:HDL Ratio 3.83 LAB LDLHDL <2.54 LDL:HDL Ratio 2.48 Result Comment: Reference: 1. National Cholesterol Education Program ATP III Guideline At-A-Glance Quick Desk Reference: National Heart, Lung, and Blood [place]. National Institutes of Health. 2001: NIH Publication No. 01-3305. 2. An International Atherosclerosis Society position paper: global recommendations for the management of dyslipidemia: executive summary, Atherosclerosis. 2014: 232(2):410-413. Performed By: #### CMP, LIPB, HBA1C #### [facility] [address] [place], [place] [id number] HEMOGLOBIN A1C Collected: 11/28/2017 Status: F Source: [place] 1:55 PM [facility] REPOSITORY TYPE CODE TESTS RESULT OUT OF REFERENCE UNITS RANGE LAB HGBA1C 4.3-5.6 % Hemoglobin A1c 5.2 LAB HBA0 mg/dL Est. Average Glucose 103 Result Comment: eAG: (Estimated average glucose) is a calculated value from HgbA1c and is electronics parts sales representative of the average blood glucose level in the last 2-3 month period. Performed By: #### CMP, LIPB, HBA1C #### [facility] [address] [place], [place] [address] CARDIOLOGY VISIT Observed: 11/22/2017 Status: F Source: [place] REPORT 10:[address] [facility] REPOSITORY [facility] [address] [place], [place] [address] OFFICE VISIT Date of Service: MR#: [id number] Acct: [id number] Name: DAVID HELM Rep #: [id number] : 1965 Provider: Carol Lynn Age/Sex: 52/F [place] [facility]: Signed HPI HPI Details: DAVID HELM, is a 52 F who presents to the office today for Intake Vital Signs11/19/17 Height 5 ft 5 in Intake Visit Reasons: Amb Documentation Allergies cephalexin Allergy (Verified 11/19/17 12:34) Rash ciprofloxacin [From Cipro] Adverse Reaction (Verified 11/19/17 12:34) mental status changes Medications loratadine 10 mg tablet PO 30 Days #30 tab 11/19/17 [History Confirmed 11/19/17] multivitamin tablet 1 tab PO DAILY 11/19/17 [History Confirmed 11/19/17] PFSH Medical History Elevated cholesterol (Chronic) Supraventricular tachycardia (Acute 11/13/17) Anxiety with depression (Acute) Teratoma (Resolved) Surgical History H/O bilateral salpingo-oophorectomy (Resolved) History of left breast biopsy (Resolved) Family History Mother Diabetes Father Diabetes Heart disease Hypertension Social History Smoking Status: Never smoker ROS Const Const: Negative for fatigue, weakness, difficulty sleeping, frequent falls, excessive sweating or headache(s) Eyes Eyes: Negative for loss of peripheral vision, transient loss of vision, blurry vision, tunnel vision or double vision ENT ENT: Negative for headache(s), dizziness, Nosebleed/epistaxis or balance problems Cardio Chest Pain: No Palpitations: No Edema: None Muscle aches with walking: None Resp Respiratory: Negative for SOB with activity, SOB at rest, SOB orthopnea\SOB lying down, paroxysmal nocturnal dyspnea or Cough GI GI: Negative nausea, heartburn, black,tarry stools or vomiting : Negative for hematuria Musc Musc: Negative for balance problems, muscle aches/ myalgia, muscle weakness or joint pain Skin Skin: Negative non-healing lesions, unusual bruising or rash Neuro Neuro: Negative for weakness, frequent falls, headache(s), blurry vision, double vision, dizziness, lightheadedness, orthostatic symptoms, near syncope, syncope or lack of coordination Dre Hematologic/Lymphatic: Negative for easy bruising or easy bleeding Endo Endo: Negative for fatigue, excessive sweating or increased thirst/drinking Psych Psych: Negative for anxiety or depression Allergy Allergy/Immunology: Negative for hives, Negative for rash Coding Level of Care Code No Charge Coding Level of Care Code No Charge 11/22/17 1019 <Electronically signed by Steven Lopez MD> Date Steven Lopez MD Cosigner Signature: Date (if applicable) CC: Benita Garcia MD CARDIOLOGY VISIT Observed: 11/19/2017 Status: F Source: [place] REPORT 5:[address] [facility] REPOSITORY [facility] [address] [place] [address] OFFICE VISIT Date of Service: 11/19/17 MR#: [id number] Acct: [id number] Name: ADVID HELM Rep #: [id number] : 1965 Provider: Steven Lopez MD Age/Sex: 52/F [place] [facility] Status: Signed HPI HPI Chief Complaint: Initial evaluation. Details: DAVID HELM, is a 52 F who presents to the office today for an initial evaluation. She is a lady with no previous cardiac history who presented to the emergency room on November 13 of this year with palpitations. She says that she thinks that she was fighting an infection and not feeling well and this happened. In the emergency room she was evaluated she was noted to be tachycardic and she spontaneously came out of that rhythm. She denied any chest pain or paroxysmal nocturnal dyspnea pedal edema no neck arm or jaw discomfort suggest angina. Her electrocardiogram in the emergency room was reviewed and it appears to be an ectopic atrial tachycardia with a rate of approximately 171 bpm. Her regular electrocardiogram performed 15 minutes afterwards. Sinus rhythm with a rate of 84 bpm and normal intervals. She says that she was asked to take a beta-jeremi but she is not keen on the above. She really does not have any increased intake of caffeinated beverages or otherwise. Her physical exam today demonstrates clear lung wang regular rate and rhythm and no pedal edema. Intake Vital Signs11/19/17 Height 5 ft 5 in 11/19/17 Weight: 166 lb 11/19/17 Body Mass Index (BMI) 27.6 11/19/17 Blood Pressure 122/62 H 11/19/17 Respiratory Rate 18 11/19/17 Pulse Rate 66 Intake Visit Reasons: ER 11-13 for tachy, new to [employer], family Hx Allergies cephalexin Allergy (Verified 11/19/17 12:34) Rash ciprofloxacin [From Cipro] Adverse Reaction (Verified 11/19/17 12:34) mental status changes Medications loratadine 10 mg tablet PO 30 Days #30 tab 11/19/17 [History Confirmed 11/19/17] multivitamin tablet 1 tab PO DAILY 11/19/17 [History Confirmed 11/19/17] PFSH Medical History Elevated cholesterol (Chronic) Supraventricular tachycardia (Acute 11/13/17) Anxiety with depression (Acute) Frequent UTI (Acute) Teratoma (Resolved) Surgical History H/O bilateral salpingo-oophorectomy (Resolved) History of left breast biopsy (Resolved) Family History Mother Diabetes Father Diabetes Heart disease Hypertension Social History Smoking Status: Never smoker ROS Const Const: Negative for fatigue, weakness, difficulty sleeping, frequent falls, excessive sweating or headache(s) Eyes Eyes: Negative for loss of peripheral vision, transient loss of vision, blurry vision, tunnel vision or double vision ENT ENT: Negative for headache(s), dizziness, Nosebleed/epistaxis or balance problems Cardio Chest Pain: No Palpitations: Yes feels like its: fast Edema: None Muscle aches with walking: None Resp Respiratory: Negative for SOB with activity, SOB at rest, SOB orthopnea\SOB lying down, paroxysmal nocturnal dyspnea or Cough GI GI: Negative nausea, heartburn, black,tarry stools or vomiting : Negative for hematuria Musc Musc: Negative for balance problems, muscle aches/ myalgia, muscle weakness or joint pain Skin Skin: Negative non-healing lesions, unusual bruising or rash Neuro Neuro: Positive for other (Heavy feeling in her head with SVT); negative for weakness, frequent falls, headache(s), blurry vision, double vision, dizziness, lightheadedness, orthostatic symptoms, near syncope, syncope or lack of coordination Dre Hematologic/Lymphatic: Negative for easy bruising or easy bleeding Endo Endo: Negative for fatigue, excessive sweating or increased thirst/drinking Psych Psych: Negative for anxiety or depression Allergy Allergy/Immunology: Negative for hives, Negative for rash Cardiology Exam Const Appearance: cooperative, healthy appearing, well developed, well groomed and no acute distress Nutritional Appearance: well nourished and average body habitus Orientation: alert, awake and oriented x3 Head Head: normal to inspection, normocephalic and atraumatic Ears: hearing grossly normal bilaterally and external ears normal Nose: external nose normal, nasal mucous membranes and turbinates normal, nares normal, septum normal, no nasal discharge Face and Sinus: face symmetric Mouth: oral mucosae normal, tongue normal, oropharynx normal and moist mucous membranes Teeth and gingiva: dentition normal Throat: posterior oropharynx normal, tonsils normal and uvula midline Eyes General: appearance normal, both eyes and all related structures Eyelids: eyelids normal Conjunctivae: conjunctivae normal Pupils: PERRL, normal by confrontation and accommodation normal EOM: EOM intact bilaterally Neck Neck: normal visual inspection, trachea midline and no JVD JVD: +5 Carotids: normal carotid upstroke and bounding pulses Chest Chest inspection: normal inspection of the chest, symmetric chest movement and normal respiratory effort Auscultation: Bilateral: Clear to Auscultation Cardio Palpation: normal PMI Rate: regular rate Rhythm: regular rhythm Heart sounds: S1 normal, S2 normal and normal, physiologic split S2; negative rub, gallop or murmur GI GI: normal to inspection, soft, no hepatosplenomegaly and bowel sounds present Neuro General: alert, awake, oriented x3, no focal sensory deficit, gait normal and moves all extremities Skin Skin: no rashes or lesions noted Extremities Pulses: Normal: Right Femoral Pulse, Left Femoral Pulse, Right Dorsalis Pedis Pulse, Left Dorsalis Pedis Pulse, Right Posterior Tibial Pulse, Left Posterior Tibial Pulse, Right Radial Pulse, Left Radial Pulse Lower Extremity Edema: None: Bilateral Musculoskel Musculoskeletal: No joint tenderness Psych Psychological: normal affect Assessment AND Plan 1. Supraventricular tachycardia I47.1 Plan She does appear to have a supraventricular tachycardia which is likely an ectopic atrial rhythm. At this time I would recommend watchful waiting as this is only her first episode. I am hesitant to put her on a beta-jeremi or to send her for EP evaluation for ablation. My recommendation will be to obtain an echocardiogram to assess her left ventricular function. Her blood work obtained in the emergency room was noted to be normal troponins were normal but I would like to add a TSH to the above. Depending on the results of the echocardiogram further recommendations will be made. Thank you for allowing me to participate in the care of your patient. Please don't hesitate to call if any issues arise Orders Orders: Plan Detail Other Medications Discontinued: Follow Up 1 Year (tapper bit) Coding Level of Care Code Off vis,new,level 4 Diagnoses Supraventricular tachycardia I47.1 Coding Level of Care Code Off vis,new,level 4 Diagnoses Supraventricular tachycardia I47.1 11/19/17 1700 <Electronically signed by Steven Lopez MD> Date Steven Lopez MD Cosigner Signature: Date (if applicable) CC: Benita Garcia MD 12 LEAD ELECTROCARDIOGRAM Observed: 11/17/2017 Status: F Source: [place] 2:[address] [facility] REPOSITORY [facility] Cardiovascular Services [address] [place] [address]83 12 Lead EKG 11/13/176 MR#: [id number] Acct: [id number] Name: DAVID HELM Alivia Rep #: [id number] : 1965 52 From: Andre Gill MD Attending Dr: Status: DEP ER Ordering Dr: Emeterio Francisco DO Date: 11/13/17 Location: ED Sex: F H Admitted: Test Reason : REPEAT Blood Pressure : / mmHG Vent. Rate : 084 BPM Atrial Rate : 084 BPM P-R Int : 146 ms QRS Dur : 086 ms QT Int : 350 ms P-R-T Axes : -01 039 035 degrees QTc Int : 413 ms Normal sinus rhythm Normal ECG Confirmed by JAIRO SHARP, ANDRE ([id number]), fan mail editor LEIGHTON ESQUIVEL ([id number]) on 11/17/2017 2:54:19 PM Referred By: ESTER Confirmed By:ANDRE GILL MD 11/17/17 1454 Date Andre Gill MD CC: Benita Garcia MD; Emeterio Francisco DO Signed 12 LEAD ELECTROCARDIOGRAM Observed: 11/17/2017 Status: F Source: [place] 2:[address] [facility]POS[facility]ORY [facility] Cardiovascular Services [address] [place] [address] 12 Lead EKG 11/13/17 211 MR#: [id number] Acct: [id number] Name: ALICJADAVID C Rep #: [id number] : 1965 52 From: Andre Gill MD Attending Dr: Status: DEP ER Ordering Dr: Emeterio Francisco DO Date: 11/13/17 Location: ED Sex: F H Admitted: Test Reason : SVT Blood Pressure : / mmHG Vent. Rate : 171 BPM Atrial Rate : 170 BPM P-R Int : 000 ms QRS Dur : 076 ms QT Int : 276 ms P-R-T Axes : 000 052 -49 degrees QTc Int : 465 ms Supraventricular tachycardia Nonspecific ST and T wave abnormality Abnormal ECG Confirmed by JAIRO SHARP, ANDRE ([id number]), fan mail editor LEIGHTON ESQUIVEL ([id number]) on 11/17/2017 2:53:19 PM Referred By: ESTER/MAIRVEL Confirmed By:ANDRE GILL MD 11/17/17 145 Date Andre Gill MD CC: Benita Garcia MD; Emeterio Francisco DO Signed DISCHARGE INSTRUCTION Observed: 11/13/2017 Status: F Source: [place] 11:[address] [facility] Medical Records Department [address] [place] [address] Discharge Instruction 11/13/17 2259 MR#: [id number] Acct: [id number] Name: DAVID HELM Rep #: [id number] : 1965 52 From: Emeterio Francisco DO PCP: Benita Garcia MD Status: REG ER ED Disposition - Plan for ED Patient: Chief Complaint: Palpitations Instructions: ED Tachycardia Pat PSVT Prescriptions: Metoprolol Succinate [Toprol Xl] 25 mg PO DAILY #30 tab.er.24h Referrals: Benita Garcia MD [Primary Care Provider] - Steven Lopez MD [STAFF PHYSICIAN] - 3-5 Days What to do if you have Problems For any increased pain, shortness of breath, bleeding, nausea or vomiting, chest pain, or any unexpected problems, contact your Primary Care Provider. Call [facility] ([phone]) or report to the closest Emergency Room. Call 911 if necessary. 11/13/17 2301 <Electronically signed by Emeterio Francisco DO> Date Emeterio Francisco DO Cosigner Signature (If Indicated): Date CC: Benita Garcia MD EMERGENCY DEPARTMENT Observed: 11/13/2017 Status: F Source: [place] SUMMARY 10:[address] [facility] Medical Records Department [address] [place] [address] Emergency Department Summary 11/13/17 2255 MR#: [id number] Acct: [id number] Name: DAVID HELM Rep #: [id number] : 1965 52 From: Emeterio Francisco DO PCP: Benita Garcia MD Status: REG ER - ER Visit Summary Date of Service: 11/13/17 Chief Complaint: [Tachycardia] History of Present Illness: The patient is a 52 F [presents the emergency department with tachycardia that started around 4 PM today. Patient states that she went to her orthopedic surgeon's office and they noted that her that her heart was racing and they advised her to come to the emergency department. Patient states she has had multiple episodes like this and has had them about once every 3 months. Patient notices that sometimes when she eats hot food it triggers this reaction or when she becomes ill. Patient states that she is currently being treated for urinary tract infection and is on ciprofloxacin. Patient also had a little bit of a sore throat and has been to urgent care where performed a strep screen that was negative. Patient currently denies any significant chest discomfort. She denies feeling short of breath. Patient is never sought medical attention for her tachycardia.] Physical Examination: [HEENT-PERRLA, EOMI. Cranial nerves II through XII grossly intact. TMs clear. Mucous membranes moist. No adenopathy. Pharynx not erythematous. Uvula midline. No trismus. Cardiovascular-regular rate and tachycardic with a heart rate of 180. No murmurs auscultated. Lungs-clear to auscultation, chest wall stable without crepitus or subcu emphysema Abdomen-normoactive bowel sounds, soft, nontender, no rebound or rigidity, no peritoneal signs. Extremities-intact 4, normal range of motion, normal pulses, atraumatic] Test Results: [EKG obtained on arrival showed SVT with a ventricular rate of [address] changes. CBC with differential was normal. Chemistries were normal. Troponin was less than 0.015. Chest x-ray showed nothing acute.] Urinalysis was normal. Repeat EKG after adenosine shows a normal sinus rhythm with no acute ST segment changes. No evidence of a delta wave. Emergency Department Course and Treatment: [Patient initially had vagal maneuvers attempted unsuccessfully. Patient was then given adenosine 6 mg IV and she returned to sinus rhythm. Patient case was discussed with Dr. Arshad who was covering for cardiology and asked that we start patient on Toprol-XL 25 mg daily. Patient will be referred to cardiology for follow-up.] Treatment Plan: [Patient will be started on Toprol and will be referred to cardiology] Disposition: [Discharged home in stable condition] Impression: [Supraventricular tachycardia] This note was generated with [employer] dictation software. It may contain incorrect words, spelling, and punctuation that were not noted in review of the chart prior to signing ED Disposition - Plan for ED Patient: Chief Complaint: Palpitations Referrals: Benita Garcia MD [Primary Care Provider] - What to do if you have Problems For any increased pain, shortness of breath, bleeding, nausea or vomiting, chest pain, or any unexpected problems, contact your Primary Care Provider. Call [facility] ([phone]) or report to the closest Emergency Room. Call 911 if necessary. 11/13/17 2259 <Electronically signed by Emeterio Francisco DO> Date Lilian Ester GRACE Cosigner Signature (If Indicated): Date CC: Benita Garcia MD URINALYSIS, COMPLETE Collected: 11/13/2017 Status: F Source: [place] 10:[address] [facility] REPOS[facility] Order Comment: Order Date: 11/13/17 How was Urine Obtained? ASSISTANT PRINCIPAL TO SPECIFY TYPE CODE TESTS RESULT OUT OF RANGE REFERENCE UNITS LAB L400.3000 Yellow COLOR Normal Yellow LAB L400.3050 Clear Normal CLARITY Clear LAB L400.3200 Normal mg/dl Normal GLUCOSE, UR Normal LAB L400.3300 Negative mg/dL Normal BILIRUBIN URINE Negative LAB L400.3400 Negative mg/dl High 15 KETONE UR LAB L400.3465 1.002-1.030 Normal SP.GR. DIPSTX 1.020 LAB L400.3550 5.0 - 8.0 pH UR Normal 6.0 LAB L400.3600 Negative mg/dl PROT Normal DIPSTX Negative LAB L400.3700 Normal mg/dl Normal UROBILI Normal LAB L400.3750 Negative Normal NITRITE UR Negative LAB L400.3780 Negative /ul High 25 OCCULT BLOOD-UR LAB L400.3800 Negative /ul High LEUK 25 ESTERASE LAB L400.4050 0-5 /hpf WBC Normal 0-5 SEEN LAB L400.4100 0-5 /hpf 0 Normal RBC-UA SEEN LAB L400.4150 5-10 /hpf SQUAM 0 Normal EPI SEEN LAB L400.4300 None Seen /hpf 0 Normal BACTERIA SEEN LAB L400.4350 <or=2+ /hpf 0 Normal MUCUS, URINE SEEN Performed By: #### L400.0001 #### [facility] [address] [place], [address] CHEST 1 VIEW Observed: 11/13/2017 Status: F Source: [place] (PORT[place]) 9:22 PM [facility]IT[facility] Imaging Services [address] [place] [address] Chest 1 View (Portable) MR#: [id number] Acct: [id number] Name: DAVID HELM Rep #: [id number] : 1965 F 52 From: Leonid Moore MD PCP: Benita Garcia MD Status: REG ER Study: Chest 1 View (Portable) Date of Exam: 11/13/17 Exam# [id number] Ordering Dr: Emeterio Francisco DO STUDY: X-RAY CHEST REASON FOR EXAM: Female, 52 years old. Palpitations TECHNIQUE: Single AP portable view of the chest. COMPARISON: None. FINDINGS: panel monitor leads are present The lungs are clear and expanded. There is no demonstrated pleural abnormality. Normal size heart. Normal mediastinum and linda. Normal visualized pulmonary arteries. Normal visualized aortic arch and descending thoracic aorta. Normal visualized thoracic spine. Normal visualized ribs, clavicles, and shoulders. There is no demonstrated abnormality of the visualized soft tissue structures of the upper abdomen. RAD/Chest 1 View (Portable) IMPRESSION: Normal x-ray examination of the chest. Electronically Signed: Leonid Moore MD at 21:55 EDT , Service support , CC: Benita Garcia MD; Emeterio Francisco DO Play Writer: Signed CBC W/DIFF, AUTOMATED Collected: 11/13/2017 Status: F Source: [place] 9:[address] [facility]POS[facility] TYPE CODE TESTS RESULT OUT OF RANGE REFERENCE UNITS LAB L100.1000 4.4-11.0 K/mm3 Normal WBC 9.2 LAB L100.1200 4.2-5.4 M/mm3 Normal RBC 5.09 LAB L100.1300 12.0-15.0 g/dl Normal HGB 15.0 LAB L100.1400 37-47 % Normal HCT 43.2 LAB L100.1500 81-99 fL Normal MCV 84.9 LAB L100.1600 27.0-32.0 pg Normal MCH 29.5 LAB L100.1700 32-36 g/gl Normal MCHC 34.7 LAB L100.1810 11.6-14.6 % Normal RDW CV 13.5 LAB L100.1820 35.1-43.9 fl Normal RDW SD 41.8 LAB L100.1900 150-450 K/mm3 Normal PLT 314 LAB L100.2000 6.2-12.0 fl Normal MPV 9.5 LAB L100.2100 47-70 % Normal NEUT% 52.5 LAB L100.2200 19-41 % Normal LY% 38.5 LAB L100.2300 0-10 % Normal MONO% 7.8 LAB L100.2400 0-5 % Normal EO% 0.9 LAB L100.2500 0-1 % Normal BASO% 0.2 LAB L100.2550 0.0-0.9 % Normal IM GRAN % 0.100 Result Comment: IG% - Immature Granulocytes (promyelocytes, myelocytes and metamyelocytes) > 1% indicates that a LEFT SHIFT is Present. LAB L100.2620 2.0-7.7 X10 3/uL Normal Absolute Neut 4.9 LAB L100.2720 0.83-4.51 X10 3/ul Normal Absolute Lymph 3.55 Performed By: #### L100.0100 #### [facility] [address] [place], [place], [address] BASIC METABOLIC Collected: 11/13/2017 Status: F Source: [place] PROFILE (BMP) 9:[address] [facility] REPOSIT[facility] TYPE CODE TESTS RESULT OUT OF RANGE REFERENCE UNITS LAB L501.0100 74-106 mg/dL Normal GLU 90 Result Comment: Please note revised GLUCOSE reference range effective 2017. LAB L501.1000 7-18 mg/dL Normal BUN 11 LAB L501.1100 0.55-1.02 mg/dL Normal CREAT,SERUM 0.72 Result Comment: The validity of the calculated GFR AND GFRAA in patients over 70 years has not been determined. Clinical correlation is essential. LAB L501.1110 >60 mL/min Normal EST GFR 90 Result Comment: Non- GFR Calc LAB L501.1115 >60 mL/min Normal EST GFR - AA 108 Result Comment: GFR Calc LAB L501.1255 ml/min Normal Estimated CRCL 82.25 LAB L501.1300 10-20 RATIO Normal BUN/CRE 15.2 LAB L501.2200 8.5-10 mg/dL Normal .1 CA 8.8 LAB L501.5300 136-14 mmol/L Normal 5 NA 140 LAB L501.5600 3.5-5. mmol/L Normal 1 K 3.6 LAB L501.5900 98-107 mmol/L Normal CL 107 LAB L501.6100 21.0-3 mmol/L Normal 2.0 CO2 25.0 LAB L501.6200 5-15 Normal GAP 8 Performed By: #### L500.2500, L501.4010 #### [facility] [address] [place], [place], [address] TROPONIN-I Collected: 11/13/2017 Status: F Source: [place] 9:[address] [facility] REPOSIT[facility] TYPE CODE TESTS RESULT OUT OF RANGE REFERENCE UNITS LAB L501.4010 <0.045 ng/mL Normal < 0.015 TROPONIN-I Result Comment: TROPONIN-I EXPECTED VALUES <0.045 Negative 0.045 - 0.590 Consistent with Cardiac Damage > OR = 0.600 Critical Value Not every elevated troponin is indicative of ME. These values should be used with clinical judgement in examining the patient's clinical picture for diagnosis. To establish a diagnosis of ME versus myocardial injury, there must be a demonstrated rise and/or fall in the troponin values, in addition to ischemic symptoms, EKG changes, new regional wall motion abnormality, and/or angiographical evidence. PLEASE NOTE: REFERENCE RANGES EDITED 17 Performed By: #### L500.2500, L501.4010 #### [facility] [address] [place], [place], [address] GROUP A STREP BY Collected: 11/11/2017 Status: F Source: [facility] 10:10 AM [facility] REPOSITORY TYPE CODE TESTS RESULT OUT OF REFERENCE UNITS RANGE LAB GASSR Throat Swab GAS Specimen Source LAB PCRGAS Negative for Group A Strep Group A PCR Streptococcus by PCR. Result Comment: This test was developed and its performance characteristics determined by [facility] [place] ([facility]). It has not been cleared or approved by the FDA. -[facility] is regulated under CLIA as qualified to perform high-complexity testing. This test is used for clinical purposes. It should not be regarded as inv estigational or for research. Performed By: #### GASPCR #### [facility] [address] [place], [place] [address] PROGRESS Observed: 11/11/2017 Status: COMPLETED Source: [place] 9:23 AM [facility] REPOSITORY HNO ID: [id number] Author: Peg Rebollar (Cheryl) Casimiro Service: (none) Author Type: Nurse Practitioner Type: Progress Notes Filed: 11/11/2017 9:44 AM Note Text: Subjective HPI Patient presents with: Sore Throat: headache in morning, chest congestion, ear pain x 3 days Denies known exposure to strep. Admits recent travel. Denies any otc treatment for symptoms. Review of Systems Constitutional: Negative for chills, fever and malaise/fatigue. HENT: Positive for congestion, ear pain (pressure) and sore throat. Eyes: Negative for discharge and redness. Respiratory: Positive for cough. Negative for hemoptysis, sputum production, shortness of breath and wheezing. Gastrointestinal: Negative for abdominal pain, diarrhea, nausea and vomiting. Skin: Negative for rash. Neurological: Positive for headaches. PAST MEDICAL HISTORY Diagnosis Date - Anxiety state, unspecified situational depression and anxiety-divorce AND family issues- no treatment since 2009 - Depressive disorder, not elsewhere classified situational depression and anxiety-divorce AND family issues- no treatment since 2009 - [place] PAST SURGICAL HISTORY Procedure Laterality Date - REMOVAL OF OVARY/TUBE(S) Bilateral 05/2016 - STEREO LOC FOR BRST NDLE BX LT 6-08 left stereo ALLERGIES Cephalexin MEDICATIONS loratadine (CLARITIN) 10 mg tablet Take 1 tablet by mouth once daily as needed. FOR ALLERGY SYMPTOMS ibuprofen (MOTRIN IB) 200 mg tablet Take 200 mg by mouth every 6 hours as needed. DAILY MULTIVITAMIN TAB Take one(1) tablet daily. Kjibvniuvpqgwos-Hantxvjzy-DJ (BROMFED DM) 2-30-10 mg/5 mL syrup Take 10 mL by mouth four times daily as needed for up to 7 days. FAMILY HISTORY Problem Relation Age of Onset - Diabetes Mother - Diabetes Father - Heart Father - Hypertension Father Social History Substance Use Topics - Smoking status: Never Smoker - Smokeless tobacco: Never Used - Alcohol use No Objective Physical Exam Constitutional: She is well-developed, well-nourished, and in no distress. HENT: Head: Normocephalic. Right Ear: Tympanic membrane, external ear and ear canal normal. Left Ear: Tympanic membrane, external ear and ear canal normal. Nose: Rhinorrhea present. Right sinus exhibits no maxillary sinus tenderness and no frontal sinus tenderness. Left sinus exhibits no maxillary sinus tenderness and no frontal sinus tenderness. Mouth/Throat: Posterior oropharyngeal erythema (PND) present. Eyes: Conjunctivae are normal. Neck: Normal range of motion. Neck supple. Cardiovascular: Normal rate, regular rhythm and normal heart sounds. Pulmonary/Chest: Effort normal and breath sounds normal. No respiratory distress. She has no wheezes. Abdominal: Soft. She exhibits no distension. There is no tenderness. Lymphadenopathy: She has no cervical adenopathy. Skin: Skin is warm and dry. No rash noted. Nursing note and vitals reviewed. ASSESSMENT/PLAN: 1. Sore throat - ICD9: 462, ICD10: J02.9 - suspect viral - Rapid Strep negative in the office today and Throat culture pending - Discussed supportive care treatment with fluids, rest and analgesia. - The patient may also use OTC decongestants prn, OTC cough and cold meds as needed, warm salt water gargles, throat lozenges and/or OTC throat spray as needed and nasal saline gtts and suction prn. - The patient should follow up in 3-5 days if symptoms persist or worsen - Call back if drooling, increased temperature, symptoms of dehydration and/or still sick in one week - RAPID STREP TEST B/O - GROUP A STREPTOCOCCUS BY PCR 2. Viral URI with cough - ICD9: 465.9, ICD10: J06.9, B97.89 - Discussed viral etiology and rationale for treatment. - Rapid strep negative in office today - Symptomatic treatment with prn analgesia - Supportive care with fluids and rest - The patient may also use OTC decongestants prn, OTC cough and cold meds as needed, warm salt water gargles, throat lozenges and/or OTC throat spray as needed and nasal saline gtts and suction prn. - Follow up in 3-5 days if symptoms persist or sooner if worsening of symptoms Prescription instructions reviewed with patient as applicable. Patient advised if symptoms do not improve or if symptoms worsen sooner, to contact their primary care physician. Potential red flag symptoms discussed with the patient. Reviewed appropriate action plan to take if red flag symptoms occur. Patient agreeable to treatment plan. Peg Pérez APRN.RISA CNOV Observed: 11/11/2017 Status: COMPLETED Source: [place] 9:00 AM [facility] REPOSIT[facility] Office Visit (WSTR) DAVID HELM ([id number]) 1965 F Date Time Provider Department 11/11/17 9:00 AM PEG PÉREZ (ARCHITECTURAL SALES CONSULTANT) [facility] During your visit today, we recorded the following information about you: Temperature Pulse Respiration Blood pressure 98.2 degrees 76/minute 16/minute 108/64 Weight 76.2 kg Peg Pérez APRN.CNP 11/11/2017 9:44 AM Signed Subjective HPI Patient presents with: Sore Throat: headache in morning, chest congestion, ear pain x 3 days Denies known exposure to strep. Admits recent travel. Denies any otc treatment for symptoms. Review of Systems Constitutional: Negative for chills, fever and malaise/fatigue. HENT: Positive for congestion, ear pain (pressure) and sore throat. Eyes: Negative for discharge and redness. Respiratory: Positive for cough. Negative for hemoptysis, sputum production, shortness of breath and wheezing. Gastrointestinal: Negative for abdominal pain, diarrhea, nausea and vomiting. Skin: Negative for rash. Neurological: Positive for headaches. PAST MEDICAL HISTORY Diagnosis Date - Anxiety state, unspecified situational depression and anxiety-divorce AND family issues- no treatment since 2009 - Depressive disorder, not elsewhere classified situational depression and anxiety-divorce AND family issues- no treatment since 2009 - [place] PAST SURGICAL HISTORY Procedure Laterality Date - REMOVAL OF OVARY/TUBE(S) Bilateral 05/2016 - STEREO LOC FOR BRST NDLE BX LT 608 left stereo ALLERGIES Cephalexin MEDICATIONS loratadine (CLARITIN) 10 mg tablet Take 1 tablet by mouth once daily as needed. FOR ALLERGY SYMPTOMS ibuprofen (MOTRIN IB) 200 mg tablet Take 200 mg by mouth every 6 hours as needed. DAILY MULTIVITAMIN TAB Take one(1) tablet daily. Wisnfrsrzlpxwrf-Uzknpjwtt-WE (BROMFED DM) 2-30-10 mg/5 mL syrup Take 10 mL by mouth four times daily as needed for up to 7 days. FAMILY HISTORY Problem Relation Age of Onset - Diabetes Mother - Diabetes Father - Heart Father - Hypertension Father Social History Substance Use Topics - Smoking status: Never Smoker - Smokeless tobacco: Never Used - Alcohol use No Objective Physical Exam Constitutional: She is well-developed, well-nourished, and in no distress. HENT: Head: Normocephalic. Right Ear: Tympanic membrane, external ear and ear canal normal. Left Ear: Tympanic membrane, external ear and ear canal normal. Nose: Rhinorrhea present. Right sinus exhibits no maxillary sinus tenderness and no frontal sinus tenderness. Left sinus exhibits no maxillary sinus tenderness and no frontal sinus tenderness. Mouth/Throat: Posterior oropharyngeal erythema (PND) present. Eyes: Conjunctivae are normal. Neck: Normal range of motion. Neck supple. Cardiovascular: Normal rate, regular rhythm and normal heart sounds. Pulmonary/Chest: Effort normal and breath sounds normal. No respiratory distress. She has no wheezes. Abdominal: Soft. She exhibits no distension. There is no tenderness. Lymphadenopathy: She has no cervical adenopathy. Skin: Skin is warm and dry. No rash noted. Nursing note and vitals reviewed. ASSESSMENT/PLAN: 1. Sore throat - ICD9: 462, ICD10: J02.9 - suspect viral - Rapid Strep negative in the office today and Throat culture pending - Discussed supportive care treatment with fluids, rest and analgesia. - The patient may also use OTC decongestants prn, OTC cough and cold meds as needed, warm salt water gargles, throat lozenges and/or OTC throat spray as needed and nasal saline gtts and suction prn. - The patient should follow up in 3-5 days if symptoms persist or worsen - Call back if drooling, increased temperature, symptoms of dehydration and/or still sick in one week - RAPID STREP TEST B/O - GROUP A STREPTOCOCCUS BY PCR 2. Viral URI with cough - ICD9: 465.9, ICD10: J06.9, B97.89 - Discussed viral etiology and rationale for treatment. - Rapid strep negative in office today - Symptomatic treatment with prn analgesia - Supportive care with fluids and rest - The patient may also use OTC decongestants prn, OTC cough and cold meds as needed, warm salt water gargles, throat lozenges and/or OTC throat spray as needed and nasal saline gtts and suction prn. - Follow up in 3-5 days if symptoms persist or sooner if worsening of symptoms Prescription instructions reviewed with patient as applicable. Patient advised if symptoms do not improve or if symptoms worsen sooner, to contact their primary care physician. Potential red flag symptoms discussed with the patient. Reviewed appropriate action plan to take if red flag symptoms occur. Patient agreeable to treatment plan. Peg Pérez APRN.RISA Pérez APRN.RISA 11/11/2017 9:27 AM Signed Treatment for Viral Upper Respiratory Tract Infections Your body will kill off the virus by itself. Additionally, you can prime your body's immune system. This may help you get better more quickly. 1. Drink lots of fluids - at least one gallon of non-caffeinated liquids per day 2. Make sure you are eating well 3. Get plenty of rest - at least 8 hours of sleep per night for adults and more for children We do not have any medications that kill off these viruses. Antibiotics are used to treat bacterial infections; however, they are not active against viral infections. There are some things that might help you feel better, though. 1. Vaporizers, humidifiers, hot showers, and hot fluids help open respiratory and sinus passages 2. Sudafed is a safe and effective decongestant 3. [place] Nasal [place] may offer relief of nasal and head congestion 4. Chava's Vapor Rub placed on a hot towel and draped over the head may relieve congestion 5. Tylenol and Advil help control fevers and headaches 6. Salt water gargles help relieve sore throats 7. Chloraceptic spray or throat lozenges may also help relieve sore throat symptoms 8. Robitussin DM will help loosen up secretions and also provide relief from a cough Occasionally, viral infections turn into something more serious. You should see your doctor or return to the Urgent Care if: 1. You have fevers for longer than five days 2. You have fevers above 102 degrees 3. You are still sick after 10 days 4. You have shortness of breath or wheezing 5. After several days you are getting worse rather than better Referring Provider: SELF [200] Allergies As of Date: 11/11/2017 Noted Allergy Reaction CEPHALEXIN 12/14/2008 2 - Rash Date Reviewed: 11/11/2017 Reviewed by: Celine Galeana Ma - Fully Assessed Reason for Visit: Sore Throat [200] Cmt: headache in morning, chest congestion, ear pain x 3 days Primary Visit Diagnosis:Sore throat [J02.9] Other Visit Diagnosis:Viral URI with cough [J06.9, B97.89] Order(s):RAPID STREP TEST B/O [[id number]] Order #: [id number] GROUP A STREPTOCOCCUS BY PCR [SQGASPCR] Order #: [id number] Plwdzmdfyjthecj-Frkpgmndi-EH (BROMFED DM) 2-30-10 mg/5 mL syrupTake 10 mL by mouth four times daily as needed for up to 7 days.Disp: 240 mLRfl: 0 Prescriptions as of 11/11/2017 Sig: LORATADINE 10 MG TABLET Take 1 tablet by mouth once d* IBUPROFEN 200 MG TABLET Take 200 mg by mouth every 6 * * DAILY MULTIVITAMIN TABLET Take one(1) tablet daily. BROMPHENIRAMINE-PSEUDOEPHEDRI* Take 10 mL by mouth four time* Problem List As Of Date 11/11/2017 Noted Resolved Unspecified noninflammatory disorder of ovary, *INVALID FOR*06/06/2016 More... More... UNSP ABNORMAL MAMMOGRAM [R92.8] INVALID FOR* Other and unspecified ovarian cyst [N83.209] INVALID FOR*04/19/2016 Allergic rhinitis, cause unspecified [J30.9] INVALID FOR* Overweight [E66.3] INVALID FOR* Ovarian cyst, bilateral [N83.201, N83.202] INVALID FOR*06/06/2016 Bilateral tubo-ovarian mass [N83.8] INVALID FOR*06/06/2016 Other instructions from your clinician: Treatment for Viral Upper Respiratory Tract Infections Your body will kill off the virus by itself. Additionally, you can prime your body's immune system. This may help you get better more quickly. 1. Drink lots of fluids - at least one gallon of non-caffeinated liquids per day 2. Make sure you are eating well 3. Get plenty of rest - at least 8 hours of sleep per night for adults and more for children We do not have any medications that kill off these viruses. Antibiotics are used to treat bacterial infections; however, they are not active against viral infections. There are some things that might help you feel better, though. 1. Vaporizers, humidifiers, hot showers, and hot fluids help open respiratory and sinus passages 2. Sudafed is a safe and effective decongestant 3. [place] Nasal [place] may offer relief of nasal and head congestion 4. Chava's Vapor Rub placed on a hot towel and draped over the head may relieve congestion 5. Tylenol and Advil help control fevers and headaches 6. Salt water gargles help relieve sore throats 7. Chloraceptic spray or throat lozenges may also help relieve sore throat symptoms 8. Robitussin DM will help loosen up secretions and also provide relief from a cough Occasionally, viral infections turn into something more serious. You should see your doctor or return to the Urgent Care if: 1. You have fevers for longer than five days 2. You have fevers above 102 degrees 3. You are still sick after 10 days 4. You have shortness of breath or wheezing 5. After several days you are getting worse rather than better Prescriptions ordered this encounter Disp Refills Start End RDRHPVONBGGHZNK-[id number]-GB 2* 240 * 0 11/11/2017 11/18/2017 Route: ORAL Sig: Take 10 mL by mouth four times daily as needed for up to 7 days. Disposition: Return if symptoms worsen or fail to improve. Follow-up and Disposition History Recorded Encounter Status:Closed by PEG PÉREZ on 11/11/17 PROGRESS Observed: 07/28/2017 Status: COMPLETED Source: [place] 7:42 AM [facility] RE[facility]IT[facility] O ID: [id number] Author: Marizol GarberCommodity Merchant) Job Service: (none) Author Type: Nurse Specialist Type: Progress Notes Filed: 07/28/2017 8:19 AM Note Text: OUTPATIENT VISIT DATE July 28, 2017 OUTPATIENT VISIT TYPE ESTABLISHED PRIMARY CARE PHYSICIAN: Benita Garcia MD CHIEF COMPLAINT: Patient presents with: Physical History of Present Illness: David Helm is a 52 year old female who was last seen 05/2017. She has been seen in the past for ACTIVE PROBLEM LIST Abnormal Mammogram, Unspecified Allergic Rhinitis, Cause Unspecified Overweight(278.02) COLORECTAL CANCER SCREENING,SEE MODIFIER due on 06/13/2015 MAMMOGRAM due on 05/23/2017 Since the last visit, she states that she is traveling to [place]. Was advised on travel documents to bring broad spectrum antibiotic with her. Currently feeling well overall. Has been exercising by swimming. She has been eating healthier foods, increased fiber through oatmeal in diet. No recent hospital or ED visits. No new medical problems or medications. Able to obtain medications. No problems with taking medications or note side effects. PAST MEDICAL HISTORY Diagnosis Date - Anxiety state, unspecified situational depression and anxiety-divorce AND family issues- no treatment since 2009 - Depressive disorder, not elsewhere classified situational depression and anxiety-divorce AND family issues- no treatment since 2009 - [facility] PAST SURGICAL HISTORY Procedure Laterality Date - REMOVAL OF OVARY/TUBE(S) Bilateral 05/2016 - STEREO LOC FOR BRST NDLE BX LT 6-9-08 left stereo FAMILY HISTORY Problem Relation Age of Onset - Diabetes Mother - Diabetes Father - Heart Father - Hypertension Father Social History Substance Use Topics - Smoking status: Never Smoker - Smokeless tobacco: Never Used - Alcohol use No ALLERGIES: ALLERGIES Allergen Reactions - Cephalexin Rash - Cipro [Ciprofloxaci* Mental Status Change MEDICATIONS amoxicillin-clavulanic acid (AUGMENTIN) 875-125 mg per tablet Take 1 tablet by mouth twice daily for 10 days. loratadine (CLARITIN) 10 mg tablet Take 1 tablet by mouth once daily as needed. FOR ALLERGY SYMPTOMS ibuprofen (MOTRIN IB) 200 mg tablet Take 200 mg by mouth every 6 hours as needed. DAILY MULTIVITAMIN TAB Take one(1) tablet daily. REVIEW OF SYSTEMS: GENERAL: Negative for: Weight loss or gain, Fever or Chills, Weakness and Sleep difficulties. Physical Examination: BP 110/60 Pulse 64 Resp 16 Ht 5' 4.75 (1.65m) Wt 173 lb (78.5kg) LMP 10/18/2010 BMI 29.00 kg/(m2). General appearance: Well appearing, alert, in no acute distress, well-hydrated, well nourished. Skin: Skin color, texture, turgor normal, no suspicious rashes or lesions Neck: Supple, no adenopathy; thyroid symmetric, normal size, no bruits Lungs: Lungs clear to auscultation. No wheezing, rhonchi, rales Heart: RRR without murmur, gallop, or rubs. Abdomen: Abdomen soft, non-tender. Bowel sounds normal. No masses, organomegaly Extremities: No edema, skin discoloration, clubbing or cyanosis. Good capillary refill. Peripheral pulses: Normal Neuro: Gait normal. Sensation grossly intact. Reviewed chart, outside records, tests I personally interviewed, confirmed and edited the above information if obtained by others. TESTING: Glucose (mg/dL) Date Value 05/18/2016 85 Potassium (mmol/L) Date Value 05/18/2016 4.0 Sodium (mmol/L) Date Value 05/18/2016 143 Chloride (mmol/L) Date Value 05/18/2016 102 CO2 (mmol/L) Date Value 05/18/2016 27 Creatinine (mg/dL) Date Value 05/18/2016 0.68 BUN (mg/dL) Date Value 05/18/2016 12 Anion Gap (mmol/L) Date Value 05/18/2016 14 Calcium (mg/dL) Date Value 05/18/2016 9.3 Glucose (mg/dL) Date Value 05/18/2016 85 Potassium (mmol/L) Date Value 05/18/2016 4.0 Sodium (mmol/L) Date Value 05/18/2016 143 Chloride (mmol/L) Date Value 05/18/2016 102 CO2 (mmol/L) Date Value 05/18/2016 27 Creatinine (mg/dL) Date Value 05/18/2016 0.68 BUN (mg/dL) Date Value 05/18/2016 12 Anion Gap (mmol/L) Date Value 05/18/2016 14 Calcium (mg/dL) Date Value 05/18/2016 9.3 Protein, Total (g/dL) Date Value 05/18/2016 7.9 Albumin (g/dL) Date Value 05/18/2016 4.7 Bilirubin, Total (mg/dL) Date Value 05/18/2016 0.6 Alkaline Phosphatase (U/L) Date Value 05/18/2016 73 AST (U/L) Date Value 05/18/2016 20 ALT (U/L) Date Value 05/18/2016 16 Hemoglobin (g/dL) Date Value 05/18/2016 14.1 Hematocrit (%) Date Value 05/18/2016 43.9 WBC (k/uL) Date Value 05/18/2016 6.42 Cholesterol, Total (mg/dL) Date Value 05/20/2017 209 HDL Cholesterol (mg/dL) Date Value 05/20/2017 52 LDL Cholesterol (mg/dL) Date Value 05/20/2017 133 Triglyceride (mg/dL) Date Value 05/20/2017 122 No results found for: HBA1C Ejection Fraction: No results found IMPRESSION: Ms. Helm is a 52 year old woman presents prior to foreign travel for antibiotic. After my examination and review of data, I make the following recommendations. PLAN AND RECOMMENDATIONS: 1. Visit for screening mammogram - ICD9: V76.12, ICD10: Z12.31 (primary diagnosis) - ROCAEL SCREENING - ROCAEL SCREENING [place] 2. Traveler's diarrhea - ICD9: 009.2, ICD10: A09 To have for travel as needed - AMOXICILLIN 875 MG-POTASSIUM CLAVULANATE 125 MG TABLET 3. Elevated cholesterol - ICD9: 272.0, ICD10: E78.00 - LIPID PANEL BASIC 4. Screen for colon cancer - ICD9: V76.51, ICD10: Z12.11 - FECAL OCCULT BLOOD TEST Advised to go to ER if develops chest pain, shortness of breath, or severe worsening of symptoms. Discussed risks, benefits, alternatives, and potential side effects of medications. Ms. Helm expressed understanding and agreed with the plan. Marizol Kaiser APRN.CNS CNOV Observed: 07/28/2017 Status: COMPLETED Source: [place] 7:40 AM [facility] Office Visit (INTMWS) HELMDAVID ([id number]) 1965 F Date Time Provider Department 07/28/17 7:40 AM MARIZOL KAISER (SENIOR OPERATOR) INTMWS During your visit today, we recorded the following information about you: Pulse Respiration Blood pressure Weight 64/minute 16/minute 110/60 78.5 kg Height 1.645 m Marizol Kaiser APRN.CNS 07/28/2017 8:19 AM Signed OUTPATIENT VISIT DATE July 28, 2017 OUTPATIENT VISIT TYPE ESTABLISHED PRIMARY CARE PHYSICIAN: Benita Garcia MD CHIEF COMPLAINT: Patient presents with: Physical History of Present Illness: David Helm is a 52 year old female who was last seen 05/2017. She has been seen in the past for ACTIVE PROBLEM LIST Abnormal Mammogram, Unspecified Allergic Rhinitis, Cause Unspecified Overweight(278.02) COLORECTAL CANCER SCREENING,SEE MODIFIER due on 06/13/2015 MAMMOGRAM due on 05/23/2017 Since the last visit, she states that she is traveling to [place]. Was advised on travel documents to bring broad spectrum antibiotic with her. Currently feeling well overall. Has been exercising by swimming. She has been eating healthier foods, increased fiber through oatmeal in diet. No recent hospital or ED visits. No new medical problems or medications. Able to obtain medications. No problems with taking medications or note side effects. PAST MEDICAL HISTORY Diagnosis Date - Anxiety state, unspecified situational depression and anxiety-divorce AND family issues- no treatment since 2009 - Depressive disorder, not elsewhere classified situational depression and anxiety-divorce AND family issues- no treatment since 2009 - [place] PAST SURGICAL HISTORY Procedure Laterality Date - REMOVAL OF OVARY/TUBE(S) Bilateral 05/2016 - STEREO LOC FOR BRST NDLE BX LT 6-9-08 left stereo FAMILY HISTORY Problem Relation Age of Onset - Diabetes Mother - Diabetes Father - Heart Father - Hypertension Father Social History Substance Use Topics - Smoking status: Never Smoker - Smokeless tobacco: Never Used - Alcohol use No ALLERGIES: ALLERGIES Allergen Reactions - Cephalexin Rash - Cipro [Ciprofloxaci* Mental Status Change MEDICATIONS amoxicillin-clavulanic acid (AUGMENTIN) 875-125 mg per tablet Take 1 tablet by mouth twice daily for 10 days. loratadine (CLARITIN) 10 mg tablet Take 1 tablet by mouth once daily as needed. FOR ALLERGY SYMPTOMS ibuprofen (MOTRIN IB) 200 mg tablet Take 200 mg by mouth every 6 hours as needed. DAILY MULTIVITAMIN TAB Take one(1) tablet daily. REVIEW OF SYSTEMS: GENERAL: Negative for: Weight loss or gain, Fever or Chills, Weakness and Sleep difficulties. Physical Examination: BP 110/60 Pulse 64 Resp 16 Ht 5' 4.75 (1.65m) Wt 173 lb (78.5kg) LMP 10/18/2010 BMI 29.00 kg/(m2). General appearance: Well appearing, alert, in no acute distress, well-hydrated, well nourished. Skin: Skin color, texture, turgor normal, no suspicious rashes or lesions Neck: Supple, no adenopathy; thyroid symmetric, normal size, no bruits Lungs: Lungs clear to auscultation. No wheezing, rhonchi, rales Heart: RRR without murmur, gallop, or rubs. Abdomen: Abdomen soft, non-tender. Bowel sounds normal. No masses, organomegaly Extremities: No edema, skin discoloration, clubbing or cyanosis. Good capillary refill. Peripheral pulses: Normal Neuro: Gait normal. Sensation grossly intact. Reviewed chart, outside records, tests I personally interviewed, confirmed and edited the above information if obtained by others. TESTING: Glucose (mg/dL) Date Value 05/18/2016 85 Potassium (mmol/L) Date Value 05/18/2016 4.0 Sodium (mmol/L) Date Value 05/18/2016 143 Chloride (mmol/L) Date Value 05/18/2016 102 CO2 (mmol/L) Date Value 05/18/2016 27 Creatinine (mg/dL) Date Value 05/18/2016 0.68 BUN (mg/dL) Date Value 05/18/2016 12 Anion Gap (mmol/L) Date Value 05/18/2016 14 Calcium (mg/dL) Date Value 05/18/2016 9.3 Glucose (mg/dL) Date Value 05/18/2016 85 Potassium (mmol/L) Date Value 05/18/2016 4.0 Sodium (mmol/L) Date Value 05/18/2016 143 Chloride (mmol/L) Date Value 05/18/2016 102 CO2 (mmol/L) Date Value 05/18/2016 27 Creatinine (mg/dL) Date Value 05/18/2016 0.68 BUN (mg/dL) Date Value 05/18/2016 12 Anion Gap (mmol/L) Date Value 05/18/2016 14 Calcium (mg/dL) Date Value 05/18/2016 9.3 Protein, Total (g/dL) Date Value 05/18/2016 7.9 Albumin (g/dL) Date Value 05/18/2016 4.7 Bilirubin, Total (mg/dL) Date Value 05/18/2016 0.6 Alkaline Phosphatase (U/L) Date Value 05/18/2016 73 AST (U/L) Date Value 05/18/2016 20 ALT (U/L) Date Value 05/18/2016 16 Hemoglobin (g/dL) Date Value 05/18/2016 14.1 Hematocrit (%) Date Value 05/18/2016 43.9 WBC (k/uL) Date Value 05/18/2016 6.42 Cholesterol, Total (mg/dL) Date Value 05/20/2017 209 HDL Cholesterol (mg/dL) Date Value 05/20/2017 52 LDL Cholesterol (mg/dL) Date Value 05/20/2017 133 Triglyceride (mg/dL) Date Value 05/20/2017 122 No results found for: HBA1C Ejection Fraction: No results found IMPRESSION: Ms. Helm is a 52 year old woman presents prior to foreign travel for antibiotic. After my examination and review of data, I make the following recommendations. PLAN AND RECOMMENDATIONS: 1. Visit for screening mammogram - ICD9: V76.12, ICD10: Z12.31 (primary diagnosis) - ROCAEL SCREENING - ROCAEL SCREENING [place] 2. Traveler's diarrhea - ICD9: 009.2, ICD10: A09 To have for travel as needed - AMOXICILLIN 875 MG-POTASSIUM CLAVULANATE 125 MG TABLET 3. Elevated cholesterol - ICD9: 272.0, ICD10: E78.00 - LIPID PANEL BASIC 4. Screen for colon cancer - ICD9: V76.51, ICD10: Z12.11 - FECAL OCCULT BLOOD TEST Advised to go to ER if develops chest pain, shortness of breath, or severe worsening of symptoms. Discussed risks, benefits, alternatives, and potential side effects of medications. Ms. Helm expressed understanding and agreed with the plan. Marizol Kaiser APRN.SENIOR OPERATOR Referring Provider: SELF [200] Allergies As of Date: 07/28/2017 Noted Allergy Reaction CEPHALEXIN 12/14/2008 2 - Rash CIPRO (CIPROFLOXACIN) 04/08/2005 1 - Mental Status Change Date Reviewed: 07/28/2017 Reviewed by: Yamila Beasley LPN - Fully Assessed Reason for Visit: Physical [83] Primary Visit Diagnosis:Visit for screening mammogram [Z12.31] Other Visit Diagnoses:Traveler's diarrhea [A09] Elevated cholesterol [E78.00] Screen for colon cancer [Z12.11] Order(s):ROCAEL SCREENING [[id number]] Order #: [id number] FUTURE ROCAEL SCREENING [place] [[id number]] Order #: [id number] FUTURE amoxicillin-clavulanic acid (AUGMENTIN) 875-125 mg per tabletTake 1 tablet by mouth twice daily for 10 days.Disp: 20 tabletRfl: 0 LIPID PANEL BASIC [SQLIPB] Order #: [id number] FUTURE FECAL OCCULT BLOOD TEST [SQIFOBT] Order #: [id number] FUTURE Prescriptions as of 07/28/2017 Sig: AMOXICILLIN 875 MG-POTASSIUM * Take 1 tablet by mouth twice * LORATADINE 10 MG TABLET Take 1 tablet by mouth once d* IBUPROFEN 200 MG TABLET Take 200 mg by mouth every 6 * * DAILY MULTIVITAMIN TABLET Take one(1) tablet daily. Problem List As Of Date 07/28/2017 Noted Resolved Unspecified noninflammatory disorder of ovary, *INVALID FOR*06/06/2016 More... More... UNSP ABNORMAL MAMMOGRAM [R92.8] INVALID FOR* Other and unspecified ovarian cyst [N83.209] INVALID FOR*04/19/2016 Allergic rhinitis, cause unspecified [J30.9] INVALID FOR* Overweight [E66.3] INVALID FOR* Ovarian cyst, bilateral [N83.201, N83.202] INVALID FOR*06/06/2016 Bilateral tubo-ovarian mass [N83.8] INVALID FOR*06/06/2016 Prescriptions ordered this encounter Disp Refills Start End AMOXICILLIN 875 MG-POTASSIUM CLAVULA* 20 t* 0 07/28/2017 08/07/2017 Route: ORAL Sig: Take 1 tablet by mouth twice daily for 10 days. Encounter Status:Closed by MARIZOL ALLEN on 07/28/17 PROGRESS Observed: 07/16/2017 Status: COMPLETED Source: [place] 10:05 AM [facility] RE[facility] HNO ID: [id number] Author: Jolene (Risa) Older Service: (none) Author Type: Nurse Practitioner Type: Progress Notes Filed: 07/16/2017 10:29 AM Note Text: CC: Patient presents with: possible sinus infection x 3 days HPI David Helm is a 52 year old female who presents today for possible sinus infection. Patient states symptoms began on Thursday 07/13. States she was caught in the rain Friday and woke up with symptoms Friday. Patient reports productive cough at times sputum color will be green. Having slight headache, mild right ear discomfort and chest feels a little tight. Throat has been aching. Denies any fever, runny nose, dizziness, pain around eyes or dental pain. Takes Claritin as needed, has not taken any recently. Patient using vicks rub and essential oils to help with cough and symptoms. Denies any history of asthma or smoking. Patient also concerned about weight, BMI and cholesterol levels. REVIEW OF SYSTEMS General: no chills and no recurrent infections Respiratory: no wheezing, no shortness of breath Cardiovascular: no chest pain, no chest pressure and no palpitations PAST MEDICAL HISTORY Diagnosis Date - Anxiety state, unspecified situational depression and anxiety-divorce AND family issues- no treatment since 2009 - Depressive disorder, not elsewhere classified situational depression and anxiety-divorce AND family issues- no treatment since 2009 - [place] PAST SURGICAL HISTORY Procedure Laterality Date - REMOVAL OF OVARY/TUBE(S) Bilateral 05/2016 - STEREO LOC FOR BRST NDLE BX LT 6-9-08 left stereo ALLERGIES Cephalexin; Cipro [Ciprofloxacin] MEDICATIONS loratadine (CLARITIN) 10 mg tablet Take 1 tablet by mouth once daily as needed. FOR ALLERGY SYMPTOMS DAILY MULTIVITAMIN TAB Take one(1) tablet daily. ibuprofen (MOTRIN IB) 200 mg tablet Take 200 mg by mouth every 6 hours as needed. FAMILY HISTORY Problem Relation Age of Onset - Diabetes Mother - Diabetes Father - Heart Father - Hypertension Father Social History Substance Use Topics - Smoking status: Never Smoker - Smokeless tobacco: Never Used - Alcohol use No PHYSICAL EXAM BP 110/80 Pulse 81 Temp 36.5 ?C (97.7 ?F) (Temporal Artery) Resp 16 Wt 79.4 kg (175 lb) LMP 10/18/2010 SpO2 98% BMI 29.12 kg/m? General Appearance: well appearing, in no acute distress, alert Eyes: conjunctiva pink and moist, sclera white, non-injected Ears: external ears normal to inspection and palpation, Left tympanic membrane normal. , Right tympanic membrane normal Nose/sinus: Nares normal. Septum midline. Mucosa normal. No drainage. Oropharynx: Moist, pink. Lymph nodes: No cervical lymphadenopathy and No supraclavicular lymphadenopathy Lungs: Left lobes and right upper lobe clear to auscultation, right lower lobe wheeze heard on expiration. No rhonchi, rales Heart: RRR without murmur, gallop, or rubs. No ectopy ASSESSMENT/PLAN: 1. Viral URI with cough - ICD9: 465.9, ICD10: J06.9, B97.89 (primary diagnosis) - Discussed viral etiology and rationale for treatment. - Symptomatic treatment with prn analgesia - Supportive care with fluids and rest - Follow up in 10 days if symptoms persist or sooner if worsening of symptoms 2. Overweight (BMI 25.0-29.9) - ICD9: 278.02, ICD10: E66.3 - Patient asking for referral to patient coordinator for weight loss. Unsure if insurance covers, will call to find out and if it is covered plans on scheduling - CONSULT TO NUTRITION THERAPY 3. Hyperlipidemia, unspecified hyperlipidemia type - ICD9: 272.4, ICD10: E78.5 - newly addressed - as above - CONSULT TO NUTRITION THERAPY Prescription instructions reviewed with patient as applicable. Potential red flag symptoms discussed with the patient. Reviewed appropriate action plan to take if red flag symptoms occur. Patient agreeable to treatment plan. Jolene Jarrett APRN.TYPISTS SUPERVISOR CNOV Observed: 07/16/2017 Status: COMPLETED Source: [place] 9:20 AM [facility] Office Visit (INTMWS) DAVID HELM ([id number]) 1965 F Date Time Provider Department 07/16/17 9:20 AM JOLENE JARRETT (RISA) [facility] During your visit today, we recorded the following information about you: Temperature Pulse Respiration Blood pressure 97.7 degrees 81/minute 16/minute 110/80 Weight 79.4 kg Jolene Jarrett APRN.CNP 07/16/2017 9:46 AM Signed Here is some cold and flu information to help ease your symptoms: 1.) Get more rest than you usually do - this will speed your recovery. If you push hard with your usual busy schedule, you will be sicker longer. 2.) Drink a lot of water - enough to make you urinate every 2-3 hours (your urine should be a light yellow color). This helps thin the phlegm and sooth the airways. Gatorade (G2) is less in sugar and replaces your electrolytes if not eating well. 3.) Run a cool mist humidifier in your bedroom on high with the door closed. This is a natural way to decongest, and it helps lessen scratchy throats, nasal stuffiness and coughs. 4.) For those without blood pressure concerns, take over the counter combination medication such as Tylenol cold and flu. Those with high blood pressure and not with prostate problems can try [id number] Coricidin HBP for congestion. 5) For nasal congestion, sinus pain/pressure: Nasal spray such as Flonase of Nasacort, available over the counter General information: * Green or yellow color does not mean you need an antibiotic; secretions can be green or yellow with viruses, such as the common cold * The average cold lasts 6-12 days. If you are not improving or are worsening by day 10 of symptoms follow up with the office Jolene Jarrett APRN.CNP 07/16/2017 10:29 AM Signed CC: Patient presents with: possible sinus infection x 3 days HPI David Helm is a 52 year old female who presents today for possible sinus infection. Patient states symptoms began on Thursday 07/13. States she was caught in the rain Friday and woke up with symptoms Friday. Patient reports productive cough at times sputum color will be green. Having slight headache, mild right ear discomfort and chest feels a little tight. Throat has been aching. Denies any fever, runny nose, dizziness, pain around eyes or dental pain. Takes Claritin as needed, has not taken any recently. Patient using vicks rub and essential oils to help with cough and symptoms. Denies any history of asthma or smoking. Patient also concerned about weight, BMI and cholesterol levels. REVIEW OF SYSTEMS General: no chills and no recurrent infections Respiratory: no wheezing, no shortness of breath Cardiovascular: no chest pain, no chest pressure and no palpitations PAST MEDICAL HISTORY Diagnosis Date - Anxiety state, unspecified situational depression and anxiety-divorce AND family issues- no treatment since 2009 - Depressive disorder, not elsewhere classified situational depression and anxiety-divorce AND family issues- no treatment since 2009 - [facility] PAST SURGICAL HISTORY Procedure Laterality Date - REMOVAL OF OVARY/TUBE(S) Bilateral 05/2016 - STEREO LOC FOR BRST NDLE BX LT 6-08 left stereo ALLERGIES Cephalexin; Cipro [Ciprofloxacin] MEDICATIONS loratadine (CLARITIN) 10 mg tablet Take 1 tablet by mouth once daily as needed. FOR ALLERGY SYMPTOMS DAILY MULTIVITAMIN TAB Take one(1) tablet daily. ibuprofen (MOTRIN IB) 200 mg tablet Take 200 mg by mouth every 6 hours as needed. FAMILY HISTORY Problem Relation Age of Onset - Diabetes Mother - Diabetes Father - Heart Father - Hypertension Father Social History Substance Use Topics - Smoking status: Never Smoker - Smokeless tobacco: Never Used - Alcohol use No PHYSICAL EXAM BP 110/80 Pulse 81 Temp 36.5 ?C (97.7 ?F) (Temporal Artery) Resp 16 Wt 79.4 kg (175 lb) LMP 10/18/2010 SpO2 98% BMI 29.12 kg/m? General Appearance: well appearing, in no acute distress, alert Eyes: conjunctiva pink and moist, sclera white, non-injected Ears: external ears normal to inspection and palpation, Left tympanic membrane normal. , Right tympanic membrane normal Nose/sinus: Nares normal. Septum midline. Mucosa normal. No drainage. Oropharynx: Moist, pink. Lymph nodes: No cervical lymphadenopathy and No supraclavicular lymphadenopathy Lungs: Left lobes and right upper lobe clear to auscultation, right lower lobe wheeze heard on expiration. No rhonchi, rales Heart: RRR without murmur, gallop, or rubs. No ectopy ASSESSMENT/PLAN: 1. Viral URI with cough - ICD9: 465.9, ICD10: J06.9, B97.89 (primary diagnosis) - Discussed viral etiology and rationale for treatment. - Symptomatic treatment with prn analgesia - Supportive care with fluids and rest - Follow up in 10 days if symptoms persist or sooner if worsening of symptoms 2. Overweight (BMI 25.0-29.9) - ICD9: 278.02, ICD10: E66.3 - Patient asking for referral to patient coordinator for weight loss. Unsure if insurance covers, will call to find out and if it is covered plans on scheduling - CONSULT TO NUTRITION THERAPY 3. Hyperlipidemia, unspecified hyperlipidemia type - ICD9: 272.4, ICD10: E78.5 - newly addressed - as above - CONSULT TO NUTRITION THERAPY Prescription instructions reviewed with patient as applicable. Potential red flag symptoms discussed with the patient. Reviewed appropriate action plan to take if red flag symptoms occur. Patient agreeable to treatment plan. Jolene Jarrett APRN.TYPISTS SUPERVISOR Referring Provider: SELF [[id number]] Allergies As of Date: 07/16/2017 Noted Allergy Reaction CEPHALEXIN 12/14/2008 2 - Rash CIPRO (CIPROFLOXACIN) 04/08/2005 1 - Mental Status Change Date Reviewed: 07/16/2017 Reviewed by: Criss Cheney Supervisor Of Way - Fully Assessed Reason for Visit: possible sinus infection x 3 days [Other] Primary Visit Diagnosis:Viral URI with cough [J06.9, B97.89] Other Visit Diagnoses:Overweight (BMI 25.0-29.9) [E66.3] Hyperlipidemia, unspecified hyperlipidemia type [E78.5] Order(s):CONSULT TO NUTRITION THERAPY [9020] Order #: [id number]: 1 Prescriptions as of 07/16/2017 Sig: LORATADINE 10 MG TABLET Take 1 tablet by mouth once d* * DAILY MULTIVITAMIN TABLET Take one(1) tablet daily. IBUPROFEN 200 MG TABLET Take 200 mg by mouth every 6 * Problem List As Of Date 07/16/2017 Noted Resolved Unspecified noninflammatory disorder of ovary, *INVALID FOR*06/06/2016 More... More... UNSP ABNORMAL MAMMOGRAM [R92.8] INVALID FOR* Other and unspecified ovarian cyst [N83.209] INVALID FOR*04/19/2016 Allergic rhinitis, cause unspecified [J30.9] INVALID FOR* Overweight [E66.3] INVALID FOR* Ovarian cyst, bilateral [N83.201, N83.202] INVALID FOR*06/06/2016 Bilateral tubo-ovarian mass [N83.8] INVALID FOR*06/06/2016 Other instructions from your clinician: Here is some cold and flu information to help ease your symptoms: 1.) Get more rest than you usually do - this will speed your recovery. If you push hard with your usual busy schedule, you will be sicker longer. 2.) Drink a lot of water - enough to make you urinate every 2-3 hours (your urine should be a light yellow color). This helps thin the phlegm and sooth the airways. Gatorade (G2) is less in sugar and replaces your electrolytes if not eating well. 3.) Run a cool mist humidifier in your bedroom on high with the door closed. This is a natural way to decongest, and it helps lessen scratchy throats, nasal stuffiness and coughs. 4.) For those without blood pressure concerns, take over the counter combination medication such as Tylenol cold and flu. Those with high blood pressure and not with prostate problems can try ibln-[id number]-yefnray Coricidin HBP for congestion. 5) For nasal congestion, sinus pain/pressure: Nasal spray such as Flonase of Nasacort, available over the counter General information: * Green or yellow color does not mean you need an antibiotic; secretions can be green or yellow with viruses, such as the common cold * The average cold lasts 6-12 days. If you are not improving or are worsening by day 10 of symptoms follow up with the office Encounter Status:Closed by JOLENE JARRETT CNP on 07/16/17 URINALYSIS WITH Collected: 05/22/2017 Status: F Source: [facility] 10:54 AM [facility] REPOSITORY TYPE CODE TESTS RESULT OUT OF RANGE REFERENCE UNITS LAB UCOL Yellow Color Yellow LAB [facility] Clear Clarity Clear LAB UGLUC Negative mg/dL Glucose, Urine Negative LAB UBIL Negative Bilirubin, Urine Negative LAB UKET Negative Ketones, Urine Negative LAB USPG 1.005-1.030 Specific Bee, Ur 1.020 LAB UHGB Negative Abnormal Hemoglobin/Blood, 2+ Alert Ur LAB UPH 4.5-8.0 pH 5.0 LAB UPROT Negative mg/dL Protein, Urine Negative LAB UUROB Normal Urobilinogen Normal LAB UNITR Negative Nitrites Negative LAB ULKEST Negative Leukest Negative LAB UCOM Comments SEE COMMENT Result Comment: N/A LAB UMCOM Urine SEE Quinn Comment COMMENT Result Comment: N/A LAB UWBC 0-5 /HPF WBC 0-5 LAB URBC 0-3 /HPF Abnormal Alert RBC 3-5 Performed By: #### UAWMIC #### [facility] [address] [place], [place] [address] CNOV Observed: 05/22/2017 Status: COMPLETED Source: [place] 10:20 AM [facility] REPOSITORY Office Visit (INTMWS) DAVID HELM ([id number]) 1965 F Date Time Provider Department 05/22/17 10:20 AM MARIZOL KAISER (SENIOR OPERATOR) INTMWS During your visit today, we recorded the following information about you: Temperature Pulse Respiration Blood pressure 97.8 degrees 88/minute 20/minute 122/60 Weight Height 80.3 kg 1.651 m Marizol Kaiser APRN.CNS 05/22/2017 11:11 AM Signed OUTPATIENT VISIT DATE May 22, 2017 OUTPATIENT VISIT TYPE ESTABLISHED PRIMARY CARE PHYSICIAN: Benita Garcia MD CHIEF COMPLAINT: Patient presents with: UTI: urinary frequency, lower back pain x 1 week Sinus Problem: headache, phlem x 1 weeks History of Present Illness: David Helm is a 51 year old female who was last seen She has been seen in the past for ACTIVE PROBLEM LIST Abnormal Mammogram, Unspecified Allergic Rhinitis, Cause Unspecified Overweight(278.02) Since the last visit, she states that she is in her usual state of health. She reports urinary symptoms for the last several days. Reports tooth pain with a cracked crown. Reports postnasal drip. Reports currently out of loratadine. The ROS is otherwise negative. The patient's pmh, medications, allergies, and past visits are reviewed. PHYSICAL EXAM: BP 122/60 (BP Site: Left Arm, BP Position: Sitting, BP Cuff Size: Large Adult) Pulse 88 Temp 36.6 ?C (97.8 ?F) (Tympanic) Resp 20 Ht 165.1 cm (5' 5ANDquot;) Wt 80.3 kg (177 lb) LMP 10/18/2010 SpO2 96% BMI 29.45 kg/m2 General appearance: alert, cooperative Head: Normocephalic Eyes: conjunctiva/corneas normal Ears: R TM - clear with good landmarks, L TM - clear with good landmarks Nose: clear rhinorrhea, mucos arythematous Oropharynx: moist without lesions Neck: supple and no adenopathy Heart: regular rate and rhythm, without murmur Lungs: clear to auscultation, without rales or wheeze, good air exchange Abd: soft NT, ND +BS PAST MEDICAL HISTORY Diagnosis Date - Anxiety state, unspecified situational depression and anxiety-divorce ANDamp; family issues-no treatment since 2009 - Depressive disorder, not elsewhere classified situational depression and anxiety-divorce ANDamp; family issues-no treatment since 2009 - [facility] PAST SURGICAL HISTORY Procedure Laterality Date - REMOVAL OF OVARY/TUBE(S) Bilateral 05/2016 - STEREO LOC FOR BRST NDLE BX LT 6-9-08 left stereo FAMILY HISTORY Problem Relation Age of Onset - Diabetes Mother - Diabetes Father - Heart Father - Hypertension Father Social History Substance Use Topics - Smoking status: Never Smoker - Smokeless tobacco: Never Used - Alcohol use No ALLERGIES: ALLERGIES Allergen Reactions - Cephalexin Rash - Cipro [Ciprofloxaci* Mental Status Change MEDICATIONS ibuprofen (MOTRIN IB) 200 mg tablet Take 200 mg by mouth every 6 hours as needed. loratadine (CLARITIN) 10 mg tablet Take 1 tablet by mouth once daily as needed. FOR ALLERGY SYMPTOMS DAILY MULTIVITAMIN TAB Take one(1) tablet daily. I personally interviewed, confirmed and edited the above information if obtained by others. TESTING: Glucose (mg/dL) Date Value 05/18/2016 85 Potassium (mmol/L) Date Value 05/18/2016 4.0 Sodium (mmol/L) Date Value 05/18/2016 143 Chloride (mmol/L) Date Value 05/18/2016 102 CO2 (mmol/L) Date Value 05/18/2016 27 Creatinine (mg/dL) Date Value 05/18/2016 0.68 BUN (mg/dL) Date Value 05/18/2016 12 Anion Gap (mmol/L) Date Value 05/18/2016 14 Calcium (mg/dL) Date Value 05/18/2016 9.3 Glucose (mg/dL) Date Value 05/18/2016 85 Potassium (mmol/L) Date Value 05/18/2016 4.0 Sodium (mmol/L) Date Value 05/18/2016 143 Chloride (mmol/L) Date Value 05/18/2016 102 CO2 (mmol/L) Date Value 05/18/2016 27 Creatinine (mg/dL) Date Value 05/18/2016 0.68 BUN (mg/dL) Date Value 05/18/2016 12 Anion Gap (mmol/L) Date Value 05/18/2016 14 Calcium (mg/dL) Date Value 05/18/2016 9.3 Protein, Total (g/dL) Date Value 05/18/2016 7.9 Albumin (g/dL) Date Value 05/18/2016 4.7 Bilirubin, Total (mg/dL) Date Value 05/18/2016 0.6 Alkaline Phosphatase (U/L) Date Value 05/18/2016 73 AST (U/L) Date Value 05/18/2016 20 ALT (U/L) Date Value 05/18/2016 16 Hemoglobin (g/dL) Date Value 05/18/2016 14.1 Hematocrit (%) Date Value 05/18/2016 43.9 WBC (k/uL) Date Value 05/18/2016 6.42 Cholesterol, Total (mg/dL) Date Value 05/20/2017 209 HDL Cholesterol (mg/dL) Date Value 05/20/2017 52 LDL Cholesterol (mg/dL) Date Value 05/20/2017 133 Triglyceride (mg/dL) Date Value 05/20/2017 122 No results found for: HBA1C Ejection Fraction: No results found IMPRESSION: Ms. Helm is a 51 year old woman missed previously scheduled physical appointment. States she will come in in January to see primary. Presents with urinary and upper respiratory complaints. After my examination and review of data, I make the following recommendations. PLAN AND RECOMMENDATIONS: 1. UTI symptoms - ICD9: 788.99, ICD10: R39.9 (primary diagnosis) - UA DIP B/O - URINALYSIS WITH MICROSCOPIC - URINE CULTURE 2. Upper respiratory tract infection, unspecified type - ICD9: 465.9, ICD10: J06.9 No signs of upper respiratory infection, does have erythema of nasal passages. Not currently taking loratadine. Recommend resuming this. - LORATADINE 10 MG TABLET 4. Hyperlipidemia, unspecified hyperlipidemia type - ICD9: 272.4, ICD10: E78.5 - suboptimal control - Encouraged following a low carbohydrate, healthy oil intake diet. - Information regarding Mediterranean diet provided. - LIPID PANEL BASIC 5. Visit for screening mammogram - ICD9: V76.12, ICD10: Z12.31 - [facility] SCREENING Schedule mammogram Try plant based diet, Mediterranean diet for elevated cholesterol level. Check lipid panel in about 6 months before visit with Benita Garcia MD Daily exercise such as walking or swimming Take Bactrim for urinary tract infection symptoms. Repeat urinalysis in 6 weeks if blood noted in urine. Advised to go to ER if develops chest pain, shortness of breath, or severe worsening of symptoms. Discussed risks, benefits, alternatives, and potential side effects of medications. Ms. Helm expressed understanding and agreed with the plan. Marizol Kaiser APRN.SENIOR OPERATOR Marizol Kaiser APRN.CNS 05/22/2017 11:02 AM Addendum Schedule mammogram Try plant based diet, Mediterranean diet for elevated cholesterol level. Check lipid panel in about 6 months before visit with Benita Garcia MD Daily exercise such as walking or swimming Take Bactrim for urinary tract infection symptoms. Repeat urinalysis in 6 weeks if blood noted in urine. Referring Provider: SELF [200] Allergies As of Date: 05/22/2017 Noted Allergy Reaction CEPHALEXIN 12/14/2008 2 - Rash CIPRO (CIPROFLOXACIN) 04/08/2005 1 - Mental Status Change Date Reviewed: 05/22/2017 Reviewed by: Milla Monaco Ma - Fully Assessed Reason for Visit: UTI [116] Cmt: urinary frequency, lower back pain x 1 week Sinus Problem [99] Cmt: headache, phlem x 1 weeks Reason For Visit History Recorded Primary Visit Diagnosis:UTI symptoms [R39.9] Other Visit Diagnoses:Upper respiratory tract infection, unspecified type [J06.9] Breast cancer screening [Z12.31] Hyperlipidemia, unspecified hyperlipidemia type [E78.5] Visit for screening mammogram [Z12.31] Order(s):loratadine (CLARITIN) 10 mg tabletTake 1 tablet by mouth once daily as needed. FOR ALLERGY SYMPTOMSDisp: 30 tabletRfl: 11 UA DIP B/O [[id number]] Order #: [id number] URINALYSIS WITH MICROSCOPIC [SQUAWMIC] Order #: [id number] URINE CULTURE [SQURCUL] Order #: [id number] LIPID PANEL BASIC [SQLIPB] Order #: [id number] FUTURE sulfamethoxazole-trimethoprim (BACTRIM DS) 800-160 mg per tabletTake 1 tablet by mouth twice daily for 5 days. Extend course if symptoms not resolved after 5 days.Disp: 10 tabletRfl: 0 [facility] SCREENING [[id number]] Order #: [id number] FUTURE Prescriptions as of 05/22/2017 Sig: LORATADINE 10 MG TABLET Take 1 tablet by mouth once d* IBUPROFEN 200 MG TABLET Take 200 mg by mouth every 6 * * DAILY MULTIVITAMIN TABLET Take one(1) tablet daily. SULFAMETHOXAZOLE 800 MG-TRIME* Take 1 tablet by mouth twice * Problem List As Of Date 05/22/2017 Noted Resolved Unspecified noninflammatory disorder of ovary, *INVALID FOR*06/06/2016 More... More... UNSP ABNORMAL MAMMOGRAM [R92.8] INVALID FOR* Other and unspecified ovarian cyst [N83.209] INVALID FOR*04/19/2016 Allergic rhinitis, cause unspecified [J30.9] INVALID FOR* Overweight [E66.3] INVALID FOR* Ovarian cyst, bilateral [N83.201, N83.202] INVALID FOR*06/06/2016 Bilateral tubo-ovarian mass [N83.8] INVALID FOR*06/06/2016 Other instructions from your clinician: Schedule mammogram Try plant based diet, Mediterranean diet for elevated cholesterol level. Check lipid panel in about 6 months before visit with Benita Garcia MD Daily exercise such as walking or swimming Take Bactrim for urinary tract infection symptoms. Repeat urinalysis in 6 weeks if blood noted in urine. Prescriptions ordered this encounter Disp Refills Start End LORATADINE 10 MG TABLET 30 t* 11 05/22/2017 Route: ORAL Sig: Take 1 tablet by mouth once daily as needed. FOR ALLERGY SYMPTOMS SULFAMETHOXAZOLE 800 MG-TRIMETHOPRIM* 10 t* 0 05/22/2017 05/27/2017 Route: ORAL Sig: Take 1 tablet by mouth twice daily for 5 days. Extend course if symptoms not resolved after 5 days. Medications Discontinued During This Encounter ibuprofen (MOTRIN) 600 mg tablet 30 t* 0 05/28/2016 05/22/2017 Class: Print RX Route: ORAL Sig: Take 1 tablet by mouth every 6 hours as needed. Disc: Reason for discontinue is not on file. loratadine (CLARITIN) 10 mg tablet 30 t* 11 06/04/2016 05/22/2017 Route: ORAL Sig: Take 1 tablet by mouth once daily as needed. FOR ALLERGY SYMPTOMS Disc: Reason for discontinue is not on file. sulfamethoxazole-trimethoprim (BACTR* 10 t* 0 04/25/2011 05/22/2017 Cmt: Ok to give generic equivalent Route: ORAL Sig: Take 1 tablet by mouth twice daily for 5 days. Extend course if symptoms not resolved after 5 days. Disc: Reason for discontinue is not on file. Disposition: Return in about 6 months (around 11/21/2017). Follow-up and Disposition History Recorded Encounter Status:Closed by MARIZOL ALLEN on 05/22/17 PROGRESS Observed: 05/22/2017 Status: COMPLETED Source: [place] 9:56 AM [facility] REPOSITORY O ID: [id number] Author: Marizol Elliott) Job Service: (none) Author Type: Nurse Specialist Type: Progress Notes Filed: 05/22/2017 11:11 AM Note Text: OUTPATIENT VISIT DATE May 22, 2017 OUTPATIENT VISIT TYPE ESTABLISHED PRIMARY CARE PHYSICIAN: Benita Garcia MD CHIEF COMPLAINT: Patient presents with: UTI: urinary frequency, lower back pain x 1 week Sinus Problem: headache, phlem x 1 weeks History of Present Illness: David Helm is a 51 year old female who was last seen She has been seen in the past for ACTIVE PROBLEM LIST Abnormal Mammogram, Unspecified Allergic Rhinitis, Cause Unspecified Overweight(278.02) Since the last visit, she states that she is in her usual state of health. She reports urinary symptoms for the last several days. Reports tooth pain with a cracked crown. Reports postnasal drip. Reports currently out of loratadine. The ROS is otherwise negative. The patient's pmh, medications, allergies, and past visits are reviewed. PHYSICAL EXAM: BP 122/60 (BP Site: Left Arm, BP Position: Sitting, BP Cuff Size: Large Adult) Pulse 88 Temp 36.6 ?C (97.8 ?F) (Tympanic) Resp 20 Ht 165.1 cm (5' 5) Wt 80.3 kg (177 lb) LMP 10/18/2010 SpO2 96% BMI 29.45 kg/m2 General appearance: alert, cooperative Head: Normocephalic Eyes: conjunctiva/corneas normal Ears: R TM - clear with good landmarks, L TM - clear with good landmarks Nose: clear rhinorrhea, mucos arythematous Oropharynx: moist without lesions Neck: supple and no adenopathy Heart: regular rate and rhythm, without murmur Lungs: clear to auscultation, without rales or wheeze, good air exchange Abd: soft NT, ND +BS PAST MEDICAL HISTORY Diagnosis Date - Anxiety state, unspecified situational depression and anxiety-divorce AND family issues- no treatment since 2009 - Depressive disorder, not elsewhere classified situational depression and anxiety-divorce AND family issues- no treatment since 2009 - [facility] PAST SURGICAL HISTORY Procedure Laterality Date - REMOVAL OF OVARY/TUBE(S) Bilateral 05/2016 - STEREO LOC FOR BRST NDLE BX LT 6-9-08 left stereo FAMILY HISTORY Problem Relation Age of Onset - Diabetes Mother - Diabetes Father - Heart Father - Hypertension Father Social History Substance Use Topics - Smoking status: Never Smoker - Smokeless tobacco: Never Used - Alcohol use No ALLERGIES: ALLERGIES Allergen Reactions - Cephalexin Rash - Cipro [Ciprofloxaci* Mental Status Change MEDICATIONS ibuprofen (MOTRIN IB) 200 mg tablet Take 200 mg by mouth every 6 hours as needed. loratadine (CLARITIN) 10 mg tablet Take 1 tablet by mouth once daily as needed. FOR ALLERGY SYMPTOMS DAILY MULTIVITAMIN TAB Take one(1) tablet daily. I personally interviewed, confirmed and edited the above information if obtained by others. TESTING: Glucose (mg/dL) Date Value 05/18/2016 85 Potassium (mmol/L) Date Value 05/18/2016 4.0 Sodium (mmol/L) Date Value 05/18/2016 143 Chloride (mmol/L) Date Value 05/18/2016 102 CO2 (mmol/L) Date Value 05/18/2016 27 Creatinine (mg/dL) Date Value 05/18/2016 0.68 BUN (mg/dL) Date Value 05/18/2016 12 Anion Gap (mmol/L) Date Value 05/18/2016 14 Calcium (mg/dL) Date Value 05/18/2016 9.3 Glucose (mg/dL) Date Value 05/18/2016 85 Potassium (mmol/L) Date Value 05/18/2016 4.0 Sodium (mmol/L) Date Value 05/18/2016 143 Chloride (mmol/L) Date Value 05/18/2016 102 CO2 (mmol/L) Date Value 05/18/2016 27 Creatinine (mg/dL) Date Value 05/18/2016 0.68 BUN (mg/dL) Date Value 05/18/2016 12 Anion Gap (mmol/L) Date Value 05/18/2016 14 Calcium (mg/dL) Date Value 05/18/2016 9.3 Protein, Total (g/dL) Date Value 05/18/2016 7.9 Albumin (g/dL) Date Value 05/18/2016 4.7 Bilirubin, Total (mg/dL) Date Value 05/18/2016 0.6 Alkaline Phosphatase (U/L) Date Value 05/18/2016 73 AST (U/L) Date Value 05/18/2016 20 ALT (U/L) Date Value 05/18/2016 16 Hemoglobin (g/dL) Date Value 05/18/2016 14.1 Hematocrit (%) Date Value 05/18/2016 43.9 WBC (k/uL) Date Value 05/18/2016 6.42 Cholesterol, Total (mg/dL) Date Value 05/20/2017 209 HDL Cholesterol (mg/dL) Date Value 05/20/2017 52 LDL Cholesterol (mg/dL) Date Value 05/20/2017 133 Triglyceride (mg/dL) Date Value 05/20/2017 122 No results found for: HBA1C Ejection Fraction: No results found IMPRESSION: Ms. Helm is a 51 year old woman missed previously scheduled physical appointment. States she will come in in January to see primary. Presents with urinary and upper respiratory complaints. After my examination and review of data, I make the following recommendations. PLAN AND RECOMMENDATIONS: 1. UTI symptoms - ICD9: 788.99, ICD10: R39.9 (primary diagnosis) - UA DIP B/O - URINALYSIS WITH MICROSCOPIC - URINE CULTURE 2. Upper respiratory tract infection, unspecified type - ICD9: 465.9, ICD10: J06.9 No signs of upper respiratory infection, does have erythema of nasal passages. Not currently taking loratadine. Recommend resuming this. - LORATADINE 10 MG TABLET 4. Hyperlipidemia, unspecified hyperlipidemia type - ICD9: 272.4, ICD10: E78.5 - suboptimal control - Encouraged following a low carbohydrate, healthy oil intake diet. - Information regarding Mediterranean diet provided. - LIPID PANEL BASIC 5. Visit for screening mammogram - ICD9: V76.12, ICD10: Z12.31 - [facility] SCREENING Schedule mammogram Try plant based diet, Mediterranean diet for elevated cholesterol level. Check lipid panel in about 6 months before visit with Benita Garcia MD Daily exercise such as walking or swimming Take Bactrim for urinary tract infection symptoms. Repeat urinalysis in 6 weeks if blood noted in urine. Advised to go to ER if develops chest pain, shortness of breath, or severe worsening of symptoms. Discussed risks, benefits, alternatives, and potential side effects of medications. Ms. Helm expressed understanding and agreed with the plan. Marizol Kaiser APRN.THIAGO Observed: 05/22/2017 Status: F Source: [place] URINE CULTURE 3:42 AM [facility] REPOSITORY Sp. Request/Comment: - Specimen received in preservative Culture Result - No growth (<1,000 CFU/ml) Performed By: #### URCUL #### [facility] [address] [place], [place] [address] GLUCOSE, FASTING Collected: 05/20/2017 Status: F Source: [place] 7:37 AM [facility] REPOSITORY TYPE CODE TESTS RESULT OUT OF REFERENCE UNITS RANGE LAB GLF 74-99 mg/dL Glucose, 85 Fasting Result Comment: [place] [employer] guidelines state that a diabetes mellitus diagnosis is preliminarily made when the fasting plasma glucose meets or exceeds 126 mg/dL. In the absence of unequivocal hyperglycemia, results should be confirmed with repeat testing. Patients are at increased risk for diabetes mellitus (prediabetes) when the fasting glucose is 100 to 125 mg/dL. Performed By: #### GLF #### [facility] [address] [place], [place] [address] LIPID PANEL, BASIC Collected: 05/20/2017 Status: F Source: [place] 7:37 AM [facility] REPOSITORY TYPE CODE TESTS RESULT OUT OF REFERENCE UNITS RANGE LAB CHOL <200 mg/dL Cholesterol High 209 Result Comment: <200 mg/dL, Desirable 200-239 mg/dL, Borderline high >239 mg/dL, High LAB TRIGLY <150 mg/dL Triglyceride 122 Result Comment: <150 mg/dL, Normal 150-199 mg/dL, Borderline high 200-499 mg/dL, High >499 mg/dL, Very high LAB HDL >39 mg/dL HDL-Cholesterol 52 Result Comment: 40-59 mg/dL, Acceptable >59 mg/dL, High: Negative risk factor for coronary heart disease <40 mg/dL, Low: Positive risk factor for coronary heart disease LAB LDL <100 mg/dL LDL-Cholesterol High 133 Result Comment: <100 mg/dL, Optimal 100-129 mg/dL, Near optimal/above optimal 130-159 mg/dL, Borderline high 160-189 mg/dL, High >189 mg/dL, Very high Secondary prevention optimal LDL Cholesterol levels are recommended to be < 70 mg/dL LAB NONHDL <130 mg/dL Non HDL High Cholesterol 157 Result Comment: <130 mg/dL, Optimal 130-159 mg/dL, Near optimal/above optimal 160-189 mg/dL, Borderline high 190-219 mg/dL, High >219 mg/dL, Very high Secondary prevention optimal non HDL Cholesterol levels are recommended to be < 100 mg/dL LAB FT hrs Fasting Time 9 LAB VLDL <30 mg/dL VLDL Cholesterol 24 LAB TCHDL <5.10 TC:HDL Ratio 4.02 LAB LDLHDL <2.54 High LDL:HDL Ratio 2.56 Result Comment: Reference: 1. National Cholesterol Education Program ATP III Guideline At-A-Glance Quick Desk Reference: National Heart, Lung, and Blood [place]. National Institutes of Health. 2001: NIH Publication No. 01-3305. 2. An International Atherosclerosis Society position paper: global recommendations for the management of dyslipidemia: executive summary, Atherosclerosis. 2014: 232(2):410-413. Performed By: #### LIPB #### [facility] [address] [address] ALLERGIES ALLERGIES DATE TYPE / CODE NAME / CODE REACTION SEVERITY SOURCE 02/02/2018 Drug cephalexin/[id number] Rash Unknown [place] Allergy/416 16(RXNORM) [facility] 696624(RUST ED CT) Repository 02/02/2018 Drug ciprofloxacin/F0060 MENTAL STATUS Unknown [place] Allergy/416 11342(RXNORM) [facility] 778887(RUST ED CT) Repository 11/13/2017 Drug No Known Unknown [place] Allergy/416 Allergies/[id number] [facility] 448397(([facility] ED CT) Repository 12/14/2008 DRUG CEPHALEXIN RASH [address] [address]([facility] Repository ED CT) 04/08/2005 DRUG CIPROFLOXACIN Mental Chg [address] [address]879([facility] Repository ED CT) ENCOUNTERS ENCOUNTERS ADMIT/DISCHARGE ACCOUNT ADMITTING ENCOUNTER LOCATION SOURCE NUMBER CLASS 02/04/2018/02/05/20 [id number] Ambulatory [address] Repository 02/02/2018 [id number] [facility] ing:[facility] Repository 02/02/2018/02/03/20 [id number] Ambulatory BMSBuilding:B [place] 18 MS[facility] Repository 12/22/2017 [id number] [facility] ing:OT Repository 12/02/2017/12/16/19 [id number] Ambulatory [address] Repository 11/28/2017 [id number] Ambulatory BMSBuilding:B [place] MS.CF.[facility] Repository 11/28/2017 [id number] [facility] ing:[facility] Repository 11/28/2017/11/29/19 [id number] Ambulatory [address] Repository 11/19/2017/11/20/19 [id number] Ambulatory BMSBuilding:B [place] 18 MS.[facility] Repository 11/19/2017 [id number] Ambulatory BMSBuilding:B [place] MS.[facility] Repository 11/13/2017/11/14/19 [id number] Emergency [address] ing:ED Repository 11/11/2017/11/13/19 [id number] Ambulatory [address] Repository 07/28/2017/07/30/19 [id number] Ambulatory [address] Repository 07/16/2017/07/19/19 [id number] Ambulatory [address] Repository 05/22/2017 [id number] Ambulatory [facility] Repository 05/22/2017/05/23/19 [id number] Ambulatory [address] Repository 05/20/2017/05/21/19 [id number] Ambulatory [address] Repository PAYERS PAYERS ENCOUNTER GUARANTOR PAYER SUBSCRIBER SOURCE 02/02/2018 DAVID ACOSTA Primary DAVID HELMDOB: Estee TIMBER Insurance[facility] [id number] Number: [facility] [id number]: [id number] Repository [phone] () Date:2018-02-02[address]ATTN: [place] [address]YF: 02/02/2018 Secondary NOT GIVENUNK [place] Insurance:SELF PAY [facility] Number: Effective Repository Date:2018-02-02 02/02/2018 DAVID MELENDREZ5 Primary DAVID HELMDOB: [place] Insurance:[facility] [id number], [place] [address]Ebr: olicy Number: [facility] [id number] Repository (HP) Date:2017-11-25[address]ATTN: [place] [address]RP: 02/02/2018 Secondary NOT GIVENUNK [place] Insurance:SELF PAY [facility] Number: Effective Repository Date:2018-02-02 12/22/2017 DAVID MELENDREZ5 Primary DAVID C HARTDOB: [place] TIMBER Insurance:[employer] [id number], [place] Number: [facility] [id number]: (456) [id number] Repository [phone] (HP) Date:2016-07-18[address]ATTN: [place] [address]BI: 12/22/2017 Secondary NOT GIVENUNK [place] Insurance:SELF PAY [facility] Number: Effective Repository Date:2017-12-18 11/28/2017 DAVID MELENDREZ5 Primary DAVID C HARTDOB: [place] Insurance:[employer] [id number] [place], [place] [address]Bsm: olicy Number: [facility] [id number] Repository (HP) Date:2017-11-19[address]ATTN: [place] [address]GW: 11/28/2017 Secondary NOT GIVENUNK [place] Insurance:SELF PAY [facility] Number: Effective Repository Date:2017-11-28 11/28/2017 DAVID MELENDREZ5 Primary DAVID C HARTDOB: [place] Insurance:[employer] [id number] [place], [place] [address]Izy: olicy Number: Hospital [id number] Repository (HP) Date:2017-11-19[address]ATTN: [place] [address]KO: 11/28/2017 Secondary NOT GIVENUNK [place] Insurance:SELF PAY [facility] Number: Effective Repository Date:2017-11-19 11/19/2017 DAVID ACOSTA Primary DAVID HELMDOB: [place] Insurance:[employer] [id number], [place] [address]Wog: olicy Number: Hospital [id number] Repository (HP) Date:2017-11-14[address]ATTN: [place] [address]HW: 11/19/2017 Secondary NOT GIVENUNK [place] Insurance:SELF PAY [facility] Number: Effective Repository Date:2017-11-14 11/19/2017 DAVID ACOSTA Primary DAVID CABRALB: [place] Insurance:[employer] [id number], [place] [address]Dwj: olicy Number: Hospital [id number] Repository (HP) Date:2017-11-19[address]ATTN: [place] [address]ND: 11/19/2017 Secondary NOT GIVENUNK [place] Insurance:SELF PAY [facility] Number: Effective Repository Date:2017-11-19 11/13/2017 David Acosta Primary David HelmDOB: [place] Insurance:[employer] [id number], [place] [address]Dlc: olicy Number: Hospital [id number] Repository (HP) Date:2017-11-13[address]ATTN: [place] [address]SO: 11/13/2017 Secondary NOT GIVENUNK Est[place] Insurance:SELF PAY [facility] Number: Effective Repository Date:2017-11-13
== END ==
PROVIDERS: Family Provider Internal Medicine; PCP Internal Medicine; Referring Provider Obstetrics & Gynecology; Visit Provider Obstetrics & Gynecology
DX: N39.0 Urinary tract infection, site not specified (principal)
CPT/HCPCS: 87086; 87088

== ENCOUNTER → 2018-05-29 | Outpatient (CLI) | payer MEDICAID, SELFPAY ==
[2018-05-29 08:26] VITALS: BMI 24.8
[2018-06-05 13:48] LABS: HPV APTIMA, High Risk Negative (Negative)
== END | disposition home or self-care (01) ==
PROVIDERS: Family Provider Internal Medicine; PCP Internal Medicine; Referring Provider Obstetrics & Gynecology; Visit Provider Obstetrics & Gynecology
DX: Z12.4 Encounter for screening for malignant neoplasm of cervix (principal)
CPT/HCPCS: 87624; 88175; G0145

== ENCOUNTER → 2020-11-29 16:18 | Outpatient (CLI) | payer MEDICAID, SELFPAY | PROVIDERS: PCP Internal Medicine; Referring Provider Nurse Practitioner Women's Health; Visit Provider Nurse Practitioner Women's Health | DX: R39.15 Urgency of urination (principal) | CPT/HCPCS: 87086 ==

== ENCOUNTER 2021-04-06 08:57 | Outpatient (RCR) | payer MEDICAID, SELFPAY ==
--- NOTE | 2021-04-06 10:09 | HP.PTEVAL ---
Patient's Visit Information DAVID HELM is a 55 year old F referred to Physical Therapy by Dr. Obed Degroot DO with a diagnosis of L knee OA. Date of Evaluation: 04/06/21 Physical Therapist: Rafa Blanton, PT, ATC - Visit Plan Frequency: 3x /Week Duration: 4-6 Weeks Plan: Aquatic therapy program consisting of L LE stretching, strengthening, and core stab ex's - Subjective Pt reports her L knee has been sore for 2 weeks. Pt reports she was shoveling snow the day before and just woke up the next morning with severe pain. Pt notes she has never had pain this bad before. Pt notes she had xrays on L knee recently which revealed OA. Pt reports she has the most pain on the medial aspect of her L knee. Pt reports she has difficulty with sit to stand transfers as well as stair negotiation secondary to L knee pain. Pt notes she continues to notice more difficulty with bending her R knee secondary to pain and tightness. Pt denies sleep difficulty at this time. Pt denies L LE tingling or numbness. Pt reports she is limited from walking, exercising, and yoga at this time secondary to pain. 5/10 pain at rest, 7/10 pain with prolonged walking and stair negotiation. - Pain L knee Pain Intensity (Out of 10): 5 Pain Intensity Range: 7 - Objective Neuro: B LE sensation is WNL to light touch. Girth at joint line: L knee 42 cm, R knee 41 cm. ROM: L knee 0-75, R knee 0-125 degrees. MMT: L knee 4-/5 and painful in all ranges. R knee is 4+/5. Gait: Pt is able to ambulate greater than 120 feet with cane and mild limp to the eval room - Balance/Special Test Scores Lower Extremity Functional Score: 26 - Goals Goal 1:: Decrease L knee pain x 50% to aid with ambulation Goal Time Frame: 4-6 Weeks Goal 2:: Increase L knee strength x 1 grade to aid with stair negotiation Goal Time Frame: 4-6 Weeks Goal 3:: Increase L knee ROM x 30 degrees to aid with restoring a more normalized gait pattern Goal Time Frame: 4-6 Weeks Goal 4:: I with HEP Goal Time Frame: 4-6 Weeks - Rehabilitation Potential Physical Therapy Diagnosis: Pt has L knee swelling, weakness, and pain secondary to L knee OA Rehabilitation Potential: Good - Anticipated Interventions Patient/Client Instruction: Educate patient on: Condition, Plan of Care For the Purpose of:: To improve self management Therapeutic Exercise to Include: Strength training, Endurance training, Flexibilty training, In an aquatic setting, Active ROM, Dynamic Lumbar Stabilization For the Purpose of:: To decrease pain, To increase ROM, To improve muscle performance and motor function Thank you for the opportunity to evaluate your patient. For Medicare and Medicare HMO plans, please review the plan of care and approve it. It will need to be FAXED BACK to us at [phone] for Medicare purposes. For Medicare only, by signing this I certify the plan of care. Please let me know if there are questions or concerns regarding this plan of care. Physician Signature: Date:
== END 2021-04-06 19:00 | disposition home or self-care (01) ==
LOC: PT 08:57
PROVIDERS: PCP Internal Medicine; Referring Provider Orthopaedic Surgery; Visit Provider Orthopaedic Surgery
DX: M17.12 Unilateral primary osteoarthritis, left knee (principal); M13.169 Monoarthritis, not elsewhere classified, unspecified knee
CPT/HCPCS: 97161

== ENCOUNTER → 2021-06-07 | Outpatient (CLI) | payer MEDICAID, SELFPAY ==
--- NOTE | 2021-06-07 17:03 | MRI_ITS ---
STUDY: MRI LEFT KNEE REASON FOR EXAM: Medial left knee pain for approximately 1.5 months. TECHNIQUE: Standardized fat and water weighted pulse sequences were obtained in all 3 orthogonal planes. COMPARISON: Radiographs 05/31/2021. FINDINGS: There is a complex tear of the posterior horn of the medial meniscus (proton-density sagittal images 8-16). There is peripheral subluxation of the medial meniscus. There is arthrosis of the medial femorotibial compartment with chondral thinning of the medial femoral condyle (T2 sagittal image 8). There is slight subchondral bone edema of the medial femoral condyle and medial tibial plateau, a stress phenomenon. Normal medial collateral ligamentous complex (MCL). Normal distal semimembranosus, gracilis and semitendinosus tendons. Normal lateral meniscus. Normal hyaline cartilage of the lateral femorotibial compartment. Normal lateral femoral condyle and tibial plateau. Normal proximal tibiofibular articulation. Normal lateral collateral (fibular) ligament. Normal popliteus tendon. Normal biceps femoris tendon. Normal anterior cruciate ligament (ACL). Normal posterior cruciate ligament (PCL). Normal congruent patellofemoral articulation. There is arthrosis of the patellofemoral compartment with chondral thinning of the inferior apex of the femoral trochlea (T2 sagittal images 12-14). Normal medial and lateral patellar retinaculum. Normal visualized quadriceps tendon. Normal patellar tendon. Normal Hoffa''s fat pad. There is a small joint effusion. There is a thin medial patellar plica. There is a small popliteal cyst (T2 sagittal images 3-7). There is mild edema in the anterior subcutis adipose space. The otherwise visualized osseous structures are unremarkable. MRI/Lower Ext Joint Only (Routine) IMPRESSION: Medial meniscal tear. Arthrosis of the medial femorotibial and patellofemoral compartments. Small joint effusion. Small popliteal cyst. Electronically Signed: Estuardo Crawford MD at 8:01 EDT ,
== END | disposition home or self-care (01) ==
LOC: MRI 17:02
PROVIDERS: PCP Internal Medicine; Visit Provider Physician Assistant
DX: M25.562 Pain in left knee (principal)
CPT/HCPCS: 73721

== ENCOUNTER 2021-07-17 08:48 | Day surgery (SDC) | payer MEDICAID, SELFPAY ==
[2021-07-17 09:28] VITALS: BP 106/61; PULSE 86; RESP 16; TEMP 37.1; O2SAT 97; BMI 30.2
[2021-07-17] MEDS: Lactated Ringers 1,000 ML 15 ML IV (09:44)
--- NOTE | 2021-07-17 09:59 | HP.PCM_ITS ---
History and Physical Date of Admission: 07/17/21 [facility] Lt[facility]ecyf1987 [facility] [address] [place] [address] [phone] OFFICE VISITDate of Service: 06/11/21 MR#:[id number]:[id number]: DAVID HELM CRep #:[id number] Provider:Dr. Obed Degroot, DOAge/Sex: 55/F Location:[place]:Signed Intake Intake Visit Reasons: LEFT KNEE Allergies cephalexin Allergy (Verified 06/11/21 15:08) Rash ciprofloxacin [From Cipro] Adverse Reaction (Verified 06/11/21 15:08) mental status changes Medications multivitamin 1 tab PO DAILY 11/19/17 [History Confirmed 06/11/21] calcium carbonate 500 mg calcium (1,250 mg) tablet 500 mg PO DAILY 11/29/20 [History Confirmed 06/11/21] fexofenadine 180 mg tablet 180 mg PO DAILY 11/29/20 [History Confirmed 06/11/21] meloxicam 15 mg tablet tablet PO 04/02/21 [History Confirmed 06/11/21] meloxicam 15 mg tablet 15 mg PO DAILY #30 tab 05/31/21 [Rx Confirmed 06/11/21] miscellaneous medical supply See Rx Instructions MISCELLANEOUS .COMPLEX 180 Days #1 ea 06/11/21 [Rx Confirmed 06/11/21] PFSH Medical History Anxiety with depression Cervical strain Elevated cholesterol Frequent UTI Left elbow contusion Lumbar strain Strain of right knee Supraventricular tachycardia (11/13/17) [place] Surgical History H/O bilateral salpingo-oophorectomy History of left breast biopsy Hx of tonsillectomy Family History Mother Diabetes Father Diabetes Heart disease Hypertension Social History number of children: 5 current occupational status: employed current occupation: [employer] Smoking Status: Never smoker alcohol intake: never substance use type: does not use seatbelt use: always do you feel safe at home: Yes additional social history: HPI LEFT KNEE Details: Parts of this documentation were recorded by a scribe, this documentation accurately reflects the service provided and the decisions made by me, Dr. Obed Degroot, DO 06/11/21 0754. DAVID HELM is a 55 year old F here today for MRI review of left knee. Pt denies any changes since last visit. Pt states right knee is hurting and feels like it clicks when she walks. Pt denies any previous surgeries on right knee and denies any known injury. Ortho Exam General General: Yes no acute distress Neurologic: Yes alert and Yes oriented x3 Psychologic: Yes reasonable and appropriate Right Knee Skin/Wound: No erythema, No ecchymosis and No swelling Homans Sign: No Knee ROM: Yes ROM-Extension -20 to 0 and Yes ROM-Flexion 0-140 Examination: Yes Med jt line tenderness, No Lat jt line tenderness and No Daisy's Test Stability: NML: Anterior Drawer, NML: Ashley, NML: Posterior Drawer, NML: Valgus 0, NML: Valgus 30, NML: Varus 0 and NML: Varus 30 Patella Grind: No Left Knee KNEE: Skin/Wound: No ecchymosis, No erythema and Yes swelling Homans Sign: No Knee ROM: Yes ROM-Extension -20 to 0 and No ROM-Flexion 0-140 Examination: Yes med jt line tenderness, Yes Lat jt line tenderness, No Crepitus, Yes Pain with flexion, Yes Daisy's Test, No Cooper's, No TTP Patellar tendon, No TTP Tibial tubercle, No TTP Pes Anserine and No Illiotibial band tenderness Quad Atrophy: No Stability: NML: Anterior Drawer, NML: Ashley, NML: Posterior Drawer and NML: Valgus 0 Apprehension with Lateral Translation: No Patellar Tilt Normal: Yes Patella Grind: No KNEE: Inspection of the face show some minor evidence of swelling compared to right side. No major signs of effusion. Patient does have full extension compared to the right knee. Initially patient states that she cannot bend past 90 degrees however while supine supporting the hamstring, she was able to perform approximate 120 degrees of flexion. Other times during the exam she states that it will not bend past 90 degrees however then she will actively flex and extend the knee without difficulties. Palpation has very inconsistent findings. There was some pretty consistent medial joint line tenderness. Inconsistent tenderness along the medial and lateral border of the patellar tendon over the fat pad as well as on the medial border of the patella. Her ACL , PCL, collateral ligaments appear intact but lacks her discomfort. Daisy's was very difficult as she has a lot of guarding/rigidity especially with any type of flexion. She states that it was painful during Daisy's. She denied pain on the left knee with Thessaly's. No patellofemoral grinding. She has soft compartments throughout the lower extremity and no calf tenderness. Negative Homans. Supplemental Info 06/07/2021 MRI left knee: Complex tear posterior horn of the medial meniscus peripheral subluxation of medial meniscus arthrosis of the medial compartment subchondral bone edema medial femoral condyle and medial tibial plateau, arthrosis of the patellofemoral compartment. 04/02/2021 x-ray left knee: Mild degenerative changes noted 10/27/2020 x-ray lumbar spine: anterior spondylolisthesis and disc space narrowing at the L3-L4 L4-L5 and L5-S1 levels. Coding Level of Care Code Off vis,est,level 3 Diagnoses Left knee DJD M17.12 Tear of medial meniscus of knee S83.249A Assessment and Plan Assessment and Plan (1) Left knee DJD: Status: Acute (2) Tear of medial meniscus of knee: Status: Acute Plan - Dr. Obed Degroot, DO: surgical options include arthroscopic meniscus partial meniscectomy surgery and possible microfracture. Pt wishes to proceed with partial medial meniscectomy possible microfracture. Reviewed the pre-operative plans with the patient. Prescription given for handicap placard. Risks and benefits of the procedure were fully explained, including but not limited to infection, neurovascular injury, continued pain, arthritis, stiffness, need for further surgery, re- injury, DVT, PE, general risks of anesthesia, and loss of limb or life and expected post operative course Patient is requesting MRI of right knee as she feels it feels the same as her left although this is only been going on for 3 weeks and she has not had any steroid injection or physical therapy on it she understands and may get denied and if so we will proceed conservatively first. The patient understands all the risks and does wish to proceed with written consent. All questions answered. Patient in agreement of plan. Plan Details Other Medications: New: miscellaneous medical supply Handicap placard miscellaneous; 6 months 1 ea 0RF miscellaneous medical supply Handicap placard miscellaneous; 6 months 1 ea 0RF 06/11/21 1609<Electronically signed by Obed Degroot DO>Date Obed Degroot DO Cosign Signature:Date (if applicable) CC: ~I have examined the patient the following changes are noted: Patient states she no longer wishes to undergo microfracture surgery if indicated she only wishes to proceed with meniscectomy and chondroplasty
[2021-07-17] MEDS: Epinephrine (1 mg/ml) 1 MG/ML VIAL (10:03)
[2021-07-17] MEDS: Lidocaine 1% /Epi 1:100 (20ml) 20 ML Vial (10:06)
[2021-07-17] MEDS: MethylPREDNISolone Acetate 40 MG/ML Vial IM (11:33)
[2021-07-17] MEDS: Bupivacaine Mpf 0.5% 30 ML VIAL (11:33)
--- NOTE | 2021-07-17 11:35 | OP.PCM_ITS ---
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 the patient did wish to proceed with an elective arthroscopic surgery to attempt to alleviate the symptoms. Risk benefits and alternatives of the procedure were reviewed including risk of bleeding infection nerve artery tissue damage need for further surgery continued pain and expected postoperative course. Procedure: The patient was met in the preoperative holding area. The operative extremity was identified by both patient and physician and family and marked. Patient was brought back to the operating room on a wheeled cart and transferred to the operating table in the supine position. Anesthesia was started. A well- padded tourniquet was placed on the operative extremity. A lower extremity leg obrien was secured to the operative extremity. The contralateral extremity was well-padded and the end of the bed was flexed to 90 degrees. The patient was prepped and draped in the usual sterile fashion. A timeout was called to ensure the proper patient, procedure, and extremity were being contemplated. 0.5% Marcaine with epinephrine was injected into the planned incisional areas under the skin only. An Esmarch was used to exsanguinate the extremity and the tourniquet was inflated. An 11 blade scalpel was used to make a stab incision in the anterior lateral portal. The arthroscope was inserted into the intercondylar notch and inflow and outflow tubes were attached. Arthroscopic visualization began. The medial compartment was entered. An 18-gauge spinal needle was used to establish the placement for anterior medial portal. An 11 blade scalpel was used to make a stab incision. Blunt probe was inserted followed by a meniscal probe. Complex tearing of the posterior horn and body of the medial meniscus was seen as well as advanced high-grade approaching grade 4 diffuse chondromalacia of the medial femoral condyle with the use of arthroscopic biting instruments and shaver partial medial meniscectomy and chondroplasty was performed to the medial compartment the ACL was found to be intact. The lateral compartment was entered and there was some cartilage softening but no meniscal pathology The arthroscope was switched to the medial portal to complete the procedure. The medial and lateral gutters were inspected and were free of loose bodies. The patellofemoral joint was inspected grade III chondromalacia in the trochlea. There was good patellar tracking. The knee was thoroughly irrigated and drained. An intra-articular injection with 5 cc 0.5% Marcaine plain and 40 mg of Depo-Medrol was injected intra-articularly. The arthroscope was removed the portals were closed with 3-[address] itches. Followed by Xeroform 4 x 4's ABDs web roll and an Maurilio wrap. The tourniquet was let down and the drapes were removed. All counts were correct. The patient was brought back to the PACU in stable condition.
--- NOTE | 2021-07-17 11:42 | EX.PCM.DISCH ---
Discharge Instructions Diet Discharge Diet: No restrictions Dressing / Incision Call your doctor if you observe: Shortness of breath and Chest pain Additional Dressing/Incision Instructions:: Ice and elevate next 72 hours .keep dressing on clean and dry for 48 hours then may remove begin showering daily but do not submerge in tub or pool. After shower may apply Band-Aids . Encourage knee range of motion weightbearing as tolerated, use crutches until confident in knee then may discontinue. No strenuous activity. When not ambulating keep iced and elevated next 72 hours. Do not mix pain medication with recreational drugs or alcohol only take as prescribed can be addictive and abusive, call with any questions or concerns. Follow Up Care Please Follow Up With: Obed Degroot DO When: 2 weeks Test Results: Test results from this visit will be discussed in further detail at your follow-up appointment, if applicable. Discharge Plan Admission Attending Provider: Obed Degroot Primary Care Provider: Vicki Garcia Discharge Orders/Prescriptions Prescriptions: New oxycodone 5 mg tablet 5 - 10 mg PO Q4H PRN (Reason: pain) 5 Days Qty: 30 RF: 0 No Action multivitamin tablet 1 tab PO DAILY RF: 0 calcium carbonate [Calcium 500] 500 mg calcium (1,250 mg) tablet 500 mg PO DAILY RF: 0 fexofenadine [Joyce Allergy] 180 mg tablet 180 mg PO DAILY RF: 0 meloxicam 15 mg tablet 15 mg PO DAILY Qty: 30 RF: 0 Other Ambulatory Orders: COVID 19 AG RAPID (RN COLLECT) (Routine) Timeframe: [id number] Facility: [facility] - Location: Laboratory Ordered By: Dr. José Cunningham Referrals / Follow Up: Vicki Garcia MD [Primary Care Provider] - Disposition Disposition (needs filled in before D/C Order can be placed): Home, Self Care
[2021-07-17 11:49] VITALS: BP 106/61; BP 114/68; PULSE 80; RESP 18; TEMP 36.8; O2SAT 96
[2021-07-17 12:04] VITALS: BP 106/61; BP 111/60; PULSE 65; RESP 18; O2SAT 97
[2021-07-17 12:15] VITALS: BP 106/61; BP 108/62; PULSE 60; RESP 18; O2SAT 97
[2021-07-17 12:21] VITALS: BP 106/61; BP 111/61; PULSE 66; RESP 18; TEMP 36.8; O2SAT 98
[2021-07-17 13:55] VITALS: BP 106/61; BP 116/69; PULSE 71; RESP 16; TEMP 36.4; O2SAT 98
== END 2021-07-17 14:14 | disposition home or self-care (01) ==
LOC: SDC 08:51 → AC 08:51
PROVIDERS: PCP Internal Medicine; Referring Provider Orthopaedic Surgery; Visit Provider Orthopaedic Surgery
PROC: (CPT 29870; principal; 2021-07-17 10:10)
DX: S83.232A Complex tear of medial meniscus, current injury, left knee, initial encounter (principal); X58.XXXA Exposure to other specified factors, initial encounter; M17.12 Unilateral primary osteoarthritis, left knee; M94.262 Chondromalacia, left knee; E78.00 Pure hypercholesterolemia, unspecified; Z79.899 Other long term (current) drug therapy
CPT/HCPCS: 29881; J7120

== ENCOUNTER → 2021-08-08 | Outpatient (CLI) | payer MEDICAID, SELFPAY ==
--- NOTE | 2021-08-08 06:33 | MRI_ITS ---
STUDY: MRI RIGHT KNEE REASON FOR EXAM: Right knee pain for 3 months. TECHNIQUE: Standardized fat and water weighted pulse sequences were obtained in all 3 orthogonal planes. COMPARISON: Radiographs 05/31/2021. FINDINGS: There is a flap tear of the medial meniscus with a displaced fragment in the medial gutter (T2 coronal images 12-15). Normal hyaline cartilage of the medial femorotibial compartment. There is a small focus of subchondral bone edema of the medial femoral condyle (T2 coronal image 14), a stress phenomenon. Normal medial collateral ligamentous complex (MCL). Normal distal semimembranosus, gracilis and semitendinosus tendons. Normal lateral meniscus. Normal hyaline cartilage of the lateral femorotibial compartment. Normal lateral femoral condyle and tibial plateau. Normal proximal tibiofibular articulation. Normal lateral collateral (fibular) ligament. Normal popliteus tendon. Normal biceps femoris tendon. Normal anterior cruciate ligament (ACL). Normal posterior cruciate ligament (PCL). Normal congruent patellofemoral articulation. There is arthrosis of the patellofemoral compartment with chondral thinning of the inferior femoral trochlea (T2 sagittal images 10-12). Normal medial and lateral patellar retinaculum. Normal quadriceps tendon. Normal patellar tendon. Normal Hoffa''s fat pad. There is no joint effusion. There is a small popliteal cyst (T2 sagittal images 18-22). There is mild edema in the anterior subcutis adipose space. The otherwise visualized osseous structures are unremarkable. MRI/Lower Ext Joint Only (Routine) IMPRESSION: Medial meniscal tear. Small focus of subchondral bone edema of the medial femoral condyle, a stress phenomenon. Patellofemoral arthrosis. Small popliteal cyst. Electronically Signed: Estuardo Crawford MD at 8:31 EDT ,
== END | disposition home or self-care (01) ==
LOC: MRI 06:33
PROVIDERS: PCP Internal Medicine; Referring Provider Orthopaedic Surgery; Visit Provider Orthopaedic Surgery
DX: S86.911A Strain of unspecified muscle(s) and tendon(s) at lower leg level, right leg, initial encounter (principal); M25.561 Pain in right knee
CPT/HCPCS: 73721

== ENCOUNTER 2021-10-17 07:00 | Outpatient (RCR) | payer OTHER, SELFPAY ==
--- NOTE | 2021-07-05 08:44 | HP.PTEVAL ---
Patient's Visit Information DAVID HELM is a 56 year old F referred to Physical Therapy by Dr. Forrest Irizarry MD with a diagnosis of Non Displaced Fibular Fracture. Date of Evaluation: 07/05/21 Physical Therapist: Jazmine Foley DPT - Visit Plan Frequency: 3x /Week Duration: 4 Weeks Plan: Wean from boot- focus on yazidi of function- PT spoke to clinical project administrative assistant at [facility] and they said to treat as a sprain- may do ultrasound at patient request. HEP Given IE: Weight Shifts, Seated HR/TR, Ankle ROM (DF/PF/INV/EVER/CIRCLES/ALPHABET) - Subjective Patient reports that she was in a classroom at school- and she slipped on something on the floor and fell- this happened June 13. Went to urgent care- but it was closed so went to ER. Radiologist says that they saw a chip on the right Fibula but the MD said no. Saw the PA at [facility] and Dr. Forrest Irizarry who reports no fracture and just a sprain. She reports that she does still have swelling. She does not sleep or shower in the boot- but when she is up and moving she has been wearing the boot. She was off for 4 days due to pain. She did have pain in the ankle and its getting better- more unstable. Worst: 5/10 Agg: standing on it in the shower. Best: 0/10 Eases: boot. Describes the pain as sharp in the lateral ankle. Does have numbness in her foot when she sits to long. Pain does not radiate into the leg. Work: [employer]- is working. She is not driving. She has a meniscal tear on the left knee and is having surgery on the July 17- previously scheduled. Does use a cane at home. Sleep: not disturbed at this point. PMHx/Meds: see list in chart. - Objective Posture: FH, RS can correct but does not maintain. Gait: antalgic- CAM walker on the right LE- no AD. SLS: weight shifting with no boot- very hesitant. Seated HR/TR: able with no pain. Palpation: tender along anterior lateral malleolus and along the mortise. Girth: Figure 8: 50 cm Malls: 23 cm. Flex: HS: moderate, Gastroc: severe Soleus: severe. ROM: DF: neutral, PF: 30 degrees, Inver: 40 degrees, Ever: 30 degrees. Strength: Knee: 5/5, Ankle: 4+/5 throughout - Balance/Special Test Scores Lower Extremity Functional Score: 35 - Goals Goal 1:: Patient will be I with HEP and progression Goal Time Frame: 4-6 Weeks Goal 2:: Patient will ambulate >300 feet with a normalized gait pattern Goal Time Frame: 4-6 Weeks Goal 3:: Patient will SLS for 30 sec without LOB and no UE A Goal Time Frame: 4-6 Weeks Goal 4:: Patient will report 80% improvement Goal Time Frame: 4-6 Weeks - Rehabilitation Potential Physical Therapy Diagnosis: Patient presents with hypomobility- she has decreased LE ROM, strength, flex, proprioception leading to abnormal gait and increased pain with ADL's. Rehabilitation Potential: Good - Anticipated Interventions Patient/Client Instruction: Educate patient on: Benefits of Fitness Program Therapeutic Exercise to Include: Strength training, Endurance training, Balance training, Coordination, Agility training, Body mechanics, Postural training, Flexibilty training, Gait and locomotor training, Neuromotor development, Dynamic Lumbar Stabilization, Scapular Strength/Stabilization For the Purpose of:: To improve muscle performance and motor function TENS: Yes Cryotherapy (ice pack, ice massage): Yes Thermo therapy (hot pack): Yes Ultrasound (thermal/non thermal): Yes Thank you for the opportunity to evaluate your patient. For Medicare and Medicare HMO plans, please review the plan of care and approve it. It will need to be FAXED BACK to us at [phone] for Medicare purposes. For Medicare only, by signing this I certify the plan of care. Please let me know if there are questions or concerns regarding this plan of care. Physician Signature: Date:
--- NOTE | 2021-08-02 07:45 | HP.PTDCSUM ---
It has been my pleasure to treat DAVID HELM referred by Dr. Forrest Irizarry MD, with the diagnosis of Non Displaced Fibular Fracture for a total of 5 visit(s). Discharge Date: Please see the following information for a summary of their discharge status. Subjective: Patient reports that she is much improved. She had knee surgery a few weeks ago so she has been laying low. She does report mild swelling and pain with prolonged walking % Improvement: 90 Objective/Function: Posture: fair throughout. Gait: no boot- did have knee surgery so her gait is antalgic due to that. SLS: weight shifting with no boot- very hesitant. Seated HR/TR: able with no pain. Palpation: tender along anterior lateral malleolus and along the mortise. Girth: Figure 8: 48 cm Malls: 22 cm. Flex: HS: moderate, Gastroc: severe Soleus: severe. ROM: DF: neutral, PF: 30 degrees, Inver: 40 degrees, Ever: 30 degrees. Strength: Knee: 5/5, Ankle: 4+/5 throughout Goal 1:: Patient will be I with HEP and progression Goal Progress: Goal Met Goal 2:: Patient will ambulate >300 feet with a normalized gait pattern Goal Progress: Progressing Goal 3:: Patient will SLS for 30 sec without LOB and no UE A Goal Progress: Goal Met Goal 4:: Patient will report 80% improvement Goal Progress: Goal Met Plan: Discharge to home exercise program If there are questions or concerns regarding this patient's physical therapy, please feel free to call me at [phone]. Thank you for the referral of this patient. Sincerely, Jazmine Foley, DPT Balance/Gait/Functional tests - Balance/Special Test Scores Lower Extremity Functional Score: 34
== END 2021-10-17 19:00 | disposition home or self-care (01) ==
LOC: PT 07:00
PROVIDERS: PCP Internal Medicine; Referring Provider Orthopaedic Surgery; Visit Provider Orthopaedic Surgery
DX: S82.64XD Nondisplaced fracture of lateral malleolus of right fibula, subsequent encounter for closed fracture with routine healing (principal); X58.XXXD Exposure to other specified factors, subsequent encounter
CPT/HCPCS: 97035; 97110; 97161; 97164; 97530

== ENCOUNTER 2022-01-11 12:30 | Outpatient (RCR) | payer MEDICAID, SELFPAY ==
--- NOTE | 2021-10-08 17:05 | HP.PTEVAL ---
Patient's Visit Information DAVID HELM is a 56 year old F referred to Physical Therapy by Dr. Obed Degroot, with a diagnosis of S/P LEFT KNEE ARTHROSCOPIC PMM ,CHONDROPLASTY. Date of Evaluation: 08/07/21 Physical Therapist: Dimas Funes, PT, Cert MDT, OCS - Visit Plan Frequency: 2x /Week Duration: 6 Weeks Plan: *Progress piriformis stretch to HEP next. *Add stairs next. MD STATED OKAY START AQUATIC THERAPY AFTER AUGUST 11. PT INTERVETIONS ROM KNEE ,FLEXABILITY ,STRENGTHENING QUADS/HAMS/HIP NUSTEP /BIKE , AND AQUATIC THERAPY WITH PATIENT ON LAND FOR 2 VISITS THEN AQUATIC THERAPY - Subjective This 56 y/o female presents to physical therapy with right s/p left knee arthroscopic knee. Patient injury shoveling snow did some exercises on knee eventually had MRI showed meniscus . Patient had arthroscopic meniscus posterior and chondroplasty on July [address] at [facility] [place] with WBAT with crutches . Patient used crutches for 1 week. Patient c/o tightness more edema and some locking one episode yesterday. Denies paresthesia/tingling. Patient sleeping good. Stopped meloxicam just ibuproprifin. Aggravating unable squatting .kneeling and difficulty with steps one steps at time. Symptoms better with CP . Patient c/o stiffness especially in morning. Patient injury foot received PT ,uses post op shoe since Friday. Patient c/o goals to decrease stiffness/edema in and walk . 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 GAIT: mid decrease stance time left side antalgic gait slow arlene. NEURO: denies paresthesia/tingling. EDEMA: joint line patella 41.5 cm. AROM: 0-112 degrees supine knee flexion. MMT (peak force): quads 19.9,hamstrings 16.2 ankle 5/5 ,hip flexion 27.7 ,hip abd 25.1. STAIRS: one step at time - Balance/Special Test Scores Lower Extremity Functional Score: 25 - Goals Goal 1:: Patient to be I with HEP and Aquatic Program Goal Time Frame: 4-6 Weeks Goal 2:: Patient to normalize gait pattern Goal Time Frame: 4-6 Weeks Goal 3:: Patient to demonstrate 60% improvement with decrease pain and improve function Goal Time Frame: 4-6 Weeks Goal 4:: Patient to improve peak force by 5 -10 quads/hams to improve function Goal Time Frame: 4-6 Weeks Goal 5:: Patient to improve AROM 0-120 degrees to improve stairs Goal Time Frame: 4-6 Weeks Goal 6:: Patient to improve LFES score by 5 10 points to improve function and gait. Goal Time Frame: 4-6 Weeks - Rehabilitation Potential Physical Therapy Diagnosis: This patient underwent s/p arthroscopic with increase pain, decrease ROM ,strength , impairs stairs ,walking and function thus will benefit from skilled PT services Rehabilitation Potential: Good - Anticipated Interventions Patient/Client Instruction: Educate patient on: Condition, Plan of Care For the Purpose of:: To decrease pain, To increase ROM, To improve muscle performance and motor function, To improve ability to perform ADL's, To increase tolerance to activity/condition/position, To improve ability of physical actions for home/community/work/leisure, To improve health of tissue, To decrease soft tissue restriction, To increase flexibility/ROM, To improve endurance, To improve balance, To prevent re-injury Therapeutic Exercise to Include: Strength training, Endurance training, Balance training, Flexibilty training, In an aquatic setting, Passive ROM, Active ROM Comment: QUADS/HAMS/HIP For the Purpose of:: To decrease pain, To increase ROM, To improve muscle performance and motor function, To increase tolerance to activity/condition/position, To improve ability of physical actions for home/community/work/leisure, To improve gait and locomotor functions, To improve health of tissue, To decrease soft tissue restriction, To increase flexibility/ROM, To improve endurance, To improve balance Thank you for the opportunity to evaluate your patient. For Medicare and Medicare HMO plans, please review the plan of care and approve it. It will need to be FAXED BACK to us at [phone] for Medicare purposes. For Medicare only, by signing this I certify the plan of care. Please let me know if there are questions or concerns regarding this plan of care. Physician Signature: Date:
--- NOTE | 2021-11-13 07:53 | HP.PTREVAL ---
Dr. Obed Degroot, DO, It has been my pleasure to treat DAVID HELM over the last 12 visits for S/P LEFT KNEE ARTHROSCOPIC PMM ,CHONDROPLASTY. Please see the progress note below for an update on the physical therapy plan of care! Subjective: Doing okay my knee is getting stronger. Patient seen Dr recommended PT Aquatic therapy. Patient conts to have pain with kneeling ,squatting and stairs. Patient reports regular walking is good pain is manageable only when I get flare ups. Received order PT Objective/Function: POSTURE: mild knee valgus. GAIT: reciprocal pattern with decrease stance time initial swing. with mild decrease stance time. 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 STAIRS: one step at time. AROM: 5-105 degrees supine flexion. MMT: ( peak force) quads 23.4,hams 19.6 -improved Plan Plan: REQUESTING 8 MORE VISITS. PT INTERVETIONS ROM KNEE ,FLEXABILITY ,STRENGTHENING QUADS/HAMS/HIP NUSTEP /BIKE , AND AQUATIC THERAPY WITH PATIENT ON LAND FOR 2 VISITS THEN AQUATIC THERAPY Balance/Gait/Functional tests - Balance/Special Test Scores Lower Extremity Functional Score: 40 Goals Goal 1:: Patient to be I with HEP and Aquatic Program Goal Time Frame: 4-6 Weeks Goal Progress: Progressing Goal 2:: Patient to normalize gait pattern Goal Time Frame: 4-6 Weeks Goal Progress: Progressing Goal 3:: Patient to demonstrate 60% improvement with decrease pain and improve function Goal Time Frame: 4-6 Weeks Goal Progress: Progressing Goal 4:: Patient to improve peak force by 5 -10 quads/hams to improve function Goal Time Frame: 4-6 Weeks Goal Progress: Progressing Goal 5:: Patient to improve AROM 0-120 degrees to improve stairs Goal Time Frame: 4-6 Weeks Goal 6:: Patient to improve LFES score by 5 10 points to improve function and gait. Goal Time Frame: 4-6 Weeks Goal Progress: Progressing Anticipated Interventions Patient/Client Instruction: Educate patient on: Condition, Plan of Care For the Purpose of:: To decrease pain, To increase ROM, To improve muscle performance and motor function, To improve ability to perform ADL's, To increase tolerance to activity/condition/position, To improve ability of physical actions for home/community/work/leisure, To improve health of tissue, To decrease soft tissue restriction, To increase flexibility/ROM, To improve endurance, To improve balance, To prevent re-injury Therapeutic Exercise to Include: Strength training, Endurance training, Balance training, Flexibilty training, In an aquatic setting, Passive ROM, Active ROM Comment: QUADS/HAMS/HIP For the Purpose of:: To decrease pain, To increase ROM, To improve muscle performance and motor function, To increase tolerance to activity/condition/position, To improve ability of physical actions for home/community/work/leisure, To improve gait and locomotor functions, To improve health of tissue, To decrease soft tissue restriction, To increase flexibility/ROM, To improve endurance, To improve balance Please do not hesitate to contact me at [phone] by phone or if you have questions or concerns regarding this new plan of care! Sincerely, Dimas Funes, PT, Cert MDT, OCS
--- NOTE | 2022-01-11 13:03 | HP.PTEVAL_ITS ---
Patient's Visit Information DAVID HELM is a 56 year old F referred to Physical Therapy by Dr. Obed Degroot, with a diagnosis of S/P LEFT KNEE ARTHROSCOPIC PMM ,CHONDROPLASTY. Date of Evaluation: 08/07/21 Physical Therapist: Dimas Funes PT, Cert MDT, OCS - Visit Plan Frequency: 2x /Week Duration: 6 Weeks Plan: D/C - Subjective This 56 y/o female presents to physical therapy with right s/p left knee arthroscopic knee. Patient injury shoveling snow did some exercises on knee eventually had MRI showed meniscus . Patient had arthroscopic meniscus posterior and chondroplasty on July [address] Degroot at [facility] with WBAT with crutches . Patient used crutches for 1 week. Patient c/o tightness more edema and some locking one episode yesterday. Denies paresthesia/tingling. Patient sleeping good. Stopped meloxicam just ibuproprifin. Aggravating unable squatting .kneeling and difficulty with steps one steps at time. Symptoms better with CP . Patient c/o stiffness especially in morning. Patient injury foot received PT ,uses post op shoe since Friday. Patient c/o goals to decrease stiffness/edema in and walk . SOCAIL: . 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 GAIT: mid decrease stance time left side antalgic gait slow arlene. NEURO: denies paresthesia/tingling. EDEMA: joint line patella 41.5 cm. AROM: 0-112 degrees supine knee flexion. MMT (peak force): quads 19.9,hamstrings 16.2 ankle 5/5 ,hip flexion 27.7 ,hip abd 25.1. STAIRS: one step at time - Balance/Special Test Scores Lower Extremity Functional Score: 52 - Goals Goal 1:: Patient to be I with HEP and Aquatic Program Goal Time Frame: 4-6 Weeks Goal 2:: Patient to normalize gait pattern Goal Time Frame: 4-6 Weeks Goal 3:: Patient to demonstrate 60% improvement with decrease pain and improve function Goal Time Frame: 4-6 Weeks Goal 4:: Patient to improve peak force by 5 -10 quads/hams to improve function Goal Time Frame: 4-6 Weeks Goal 5:: Patient to improve AROM 0-120 degrees to improve stairs Goal Time Frame: 4-6 Weeks Goal 6:: Patient to improve LFES score by 5 10 points to improve function and gait. Goal Time Frame: 4-6 Weeks - Rehabilitation Potential Physical Therapy Diagnosis: This patient underwent s/p arthroscopic with increase pain, decrease ROM ,strength , impairs stairs ,walking and function thus will benefit from skilled PT services Rehabilitation Potential: Good - Anticipated Interventions Patient/Client Instruction: Educate patient on: Condition, Plan of Care For the Purpose of:: To decrease pain, To increase ROM, To improve muscle performance and motor function, To improve ability to perform ADL's, To increase tolerance to activity/condition/position, To improve ability of physical actions for home/community/work/leisure, To improve health of tissue, To decrease soft tissue restriction, To increase flexibility/ROM, To improve endurance, To improve balance, To prevent re-injury Therapeutic Exercise to Include: Strength training, Endurance training, Balance training, Flexibilty training, In an aquatic setting, Passive ROM, Active ROM Comment: QUADS/HAMS/HIP For the Purpose of:: To decrease pain, To increase ROM, To improve muscle performance and motor function, To increase tolerance to activity/condition/pos ition, To improve ability of physical actions for home/community/work/leisure, To improve gait and locomotor functions, To improve health of tissue, To decrease soft tissue restriction, To increase flexibility/ROM, To improve endurance, To improve balance Thank you for the opportunity to evaluate your patient. For Medicare and Medicare HMO plans, please review the plan of care and approve it. It will need to be FAXED BACK to us at [phone] for Medicare purposes. For Medicare only, by signing this I certify the plan of care. Please let me know if there are questions or concerns regarding this plan of care. Physician Signature: Date:
--- NOTE | 2022-01-15 09:47 | HP.PTDCSUM_ITS ---
It has been my pleasure to treat DAVID HELM referred by Dr. Obed Degroot DO, with the diagnosis of S/P LEFT KNEE ARTHROSCOPIC PMM ,CHONDROPLASTY for a total of 21 visit(s). Discharge Date: 01/11/22 Please see the following information for a summary of their discharge status. Subjective: Patient knows limitations like biking ,squatting ,kneeling. Pat ient getting stronger Left Knee Pain Intensity (Out of 10): 1 % Improvement: 60 Objective/Function: POSTURE: WFL. GAIT: reciprocal pattern. AROM: 0-125 degrees. MMT: peak force quads 36.8 , hamstrings 26.6 , Goal 1:: Patient to be I with HEP and Aquatic Program Goal Progress: Goal Met Goal 2:: Patient to normalize gait pattern Goal Progress: Goal Met Goal 3:: Patient to demonstrate 60% improvement with decrease pain and improve function Goal Progress: Goal Met Goal 4:: Patient to improve peak force by 5 -10 quads/hams to improve function Goal Progress: Goal Met Goal 5:: Patient to improve AROM 0-120 degrees to improve stairs Goal Progress: Goal Met Goal 6:: Patient to improve LFES score by 5 10 points to improve function and gait. Goal Progress: Goal Met Plan: D/C Discharge Comments: hep If there are questions or concerns regarding this patient's physical therapy, please feel free to call me at [phone]. Thank you for the referral of this patient. Sincerely, Dimas Funes, PT, Cert MDT, OCS Balance/Gait/Functional tests - Balance/Special Test Scores Lower Extremity Functional Score: 52
== END 2022-01-11 19:00 | disposition home or self-care (01) ==
LOC: PT 12:30
PROVIDERS: PCP Internal Medicine; Referring Provider Orthopaedic Surgery; Visit Provider Orthopaedic Surgery
DX: Z47.89 Encounter for other orthopedic aftercare (principal)
CPT/HCPCS: 97110; 97113; 97162; 97530

== ENCOUNTER → 2022-03-20 | Outpatient (CLI) | payer MEDICAID, SELFPAY ==
--- NOTE | 2022-03-20 18:18 | US_ITS ---
HISTORY: UTI. TECHNIQUE: Dyer scale and color doppler images were obtained of the kidneys. 101 images. COMPARISON: None. FINDINGS: RIGHT KIDNEY: 11.8 cm in length with a cortical thickness of 1.3 cm. Contour and echogenicity unremarkable. Mild pelviectasis without hydronephrosis. No gross renal mass demonstrated. LEFT KIDNEY: 13.6 cm in length with a cortical thickness of 1.6 cm. Contour and echogenicity unremarkable. Mild pelviectasis hydronephrosis. No gross renal mass demonstrated. URINARY BLADDER: Unremarkable at 137 cc with a wall thickness of 3 mm. Minimal postvoid residual of 12 cc. Bilateral ureteral jets visualized. US/Kidney and Bladder IMPRESSION: Mild bilateral pelviectasis without hydronephrosis. Electronically Signed: Tiara Oh MD at 9:20 EST ,
== END | disposition home or self-care (01) ==
LOC: US 18:18
PROVIDERS: PCP Internal Medicine; Referring Provider Urology; Visit Provider Urology
DX: N39.0 Urinary tract infection, site not specified (principal)
CPT/HCPCS: 76770

== ENCOUNTER → 2022-06-20 | Outpatient (CLI) | payer MEDICAID, SELFPAY ==
--- NOTE | 2022-06-20 16:59 | US_ITS ---
EXAM: US RETROPERITONEAL LIMITED, RENAL CLINICAL INDICATION: HYDRONEPHROSIS TECHNIQUE: Limited grayscale and color Doppler sonographic evaluation of the retroperitoneum was performed. COMPARISON: No relevant prior studies available. FINDINGS: RIGHT KIDNEY: Unremarkable. No hydronephrosis. No shadowing calculus. No focal lesion. No perinephric collection is demonstrated. LEFT KIDNEY: Unremarkable. No hydronephrosis. No shadowing calculus. No focal lesion. No perinephric collection is demonstrated. Bladder volume 56 mL distended, 40 mL empty. No wall thickening or intraluminal masses are identified. US/Kidney and Bladder IMPRESSION: Unremarkable limited retroperitoneal ultrasound. Electronically Signed: Devin Reddy MD at 0:54 EDT ,
== END | disposition home or self-care (01) ==
LOC: US 16:58
PROVIDERS: PCP Internal Medicine; Referring Provider Urology; Visit Provider Urology
DX: N13.30 Unspecified hydronephrosis (principal)
CPT/HCPCS: 76770

== ENCOUNTER 2022-07-16 22:05 | Emergency (ER) | payer MEDICAID, SELFPAY ==
[2022-07-16 22:06] VITALS: BP 115/81; PULSE 190; RESP 15; TEMP 36.6; O2SAT 97
[2022-07-16] MEDS: Adenosine 6 MG/2 ML Syringe IV (22:40)
[2022-07-16 22:50] VITALS: BP 122/75; PULSE 89; RESP 14; O2SAT 95; BMI 31.6
[2022-07-16] MEDS: 0.9% Normal Saline 1,000 ML 999 ML IV (22:51)
[2022-07-16 23:19] LABS: Anion Gap 12 (5-15); BUN 20 mg/dL (7-18); Calcium,Total 9.4 mg/dL (8.5-10.1); Chloride 109 mmol/L (98-107); Creatinine, Serum 1.05 mg/dL (0.55-1.02); EST Glomerular Filtration Rate 57 mL/min (>60); Est Glom Filt Rate - Afr Amer 69 mL/min (>60); Estimated Creatinine Clearance 51.05 ml/min; Glucose 123 mg/dL (74-106); Magnesium 2.4 mg/dL (1.6-2.6); Potassium 3.5 mmol/L (3.5-5.1); Sodium Level 144 mmol/L (136-145); Thyroid Stim Hormone (TSH) 1.05 uIU/mL (0.358-3.74)
[2022-07-16 23:32] LABS: Absolute Lymphocyte Count 2.89 X10^3/uL (0.83-4.51); Absolute Neutrophil Count 5.7 X10^3/uL (2.0-7.7); Basophil# 0.05 X10^3/uL; Basophil% 0.5 % (0-1); Eosinophil# 0.05 X10^3/uL; Eosinophils% 0.5 % (0-5); Hematocrit 45.8 % (37-47); Hemoglobin 15.5 g/dL (12.0-15.0); Lymphocyte # 2.89 X10^3/ul (0.83-4.51); Lymphocyte % 29.9 % (19-41); Mean Corp Hgb Conc 33.8 g/dL (32-36); Mean Corpuscular Hgb 29.1 pg (27.0-32.0); Mean Corpuscular Volume 86.1 fL (81-99); Mean Platelet Vol. 10.1 fl (6.2-12.0); Monocyte% 8.3 % (0-10); NRBC Flagged by Analyzer 0 % (0-5); Neutrophil # 5.68 X10^3/uL (2.7-7.7); Neutrophil % 58.9 % (47-70); Platelet Count 405 K/mm3 (150-450); RBC Distribution Width CV 13.9 % (11.6-14.6); RBC Distribution Width SD 43.3 fl (35.1-43.9); Red Blood Count 5.32 M/mm3 (4.2-5.4); White Blood Count 9.7 K/mm3 (4.4-11.0)
--- NOTE | 2022-07-16 23:49 | EDS_ITS ---
HPI History of Present Illness Chief Complaint: Palpitations Informant: patient and family Narrative Narrative: Patient is a 50-year-old female who reports a past medical history of previous SVT 4 years ago. She states that she was followed by cardiology and felt it was related to antibiotic use and therefore she began listing the antibiotic as an allergy and states she has not had it recently. She states that she recently tripped and caused some pain to her left knee and believes that with the increased pain this is caused stimulation which is led to her palpitations. She reports the palpitations began just roughly 1/2-hour to 1 hour ago. She denies any illicit drugs or excessive stimulants. However with the palpitations and need for possible medical intervention she presents for evaluation [facility] Medical History Anxiety with depression Arthritis Cardiology follow-up encounter Cervical strain Elevated cholesterol Frequent UTI History of echocardiogram History of edema History of pain when walking Left elbow contusion Leg cramps Lumbar strain Non-smoker Strain of right knee Supraventricular tachycardia (11/13/17) Teratoma Wears glasses Wears partial dentures Home Medications multivitamin 1 tab PO DAILY 11/19/17 [History Last Taken Unknown] calcium carbonate 500 mg calcium (1,250 mg) tablet (Calcium 500) 500 mg PO DAILY 11/29/20 [History Last Taken Unknown] fexofenadine 180 mg tablet (Joyce Allergy) 180 mg PO DAILY 11/29/20 [History Last Taken Unknown] ibuprofen 200 mg tablet 400 mg PO Q6H PRN 10/29/21 [History Last Taken Unknown] miscellaneous medical supply 1 ea miscellaneous .6 months #1 ea 12/05/21 [Rx Last Taken Unknown] miscellaneous medical supply 1 ea miscellaneous .1 year #1 ea 12/18/21 [Rx Last Taken Unknown] estradiol 0.01% (0.1 mg/gram) vaginal cream See Rx Instructions vaginal .COMPLEX #42.5 grams 02/07/22 [Rx Last Taken Unknown] Allergy/AdvReac Type Severity Reaction Status Date / Time cephalexin Allergy Rash Verified 07/16/22 22:10 ciprofloxacin [From Cipro] AdvReac mental Verified 02/07/22 09:19 status changes Family History Mother Diabetes Father Diabetes Heart disease Hypertension Surgical History H/O bilateral salpingo-oophorectomy History of left breast biopsy Hx of tonsillectomy Social History number of children: 5 current occupational status: employed 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 Smoking Status: Never smoker alcohol intake: never substance use type: does not use seatbelt use: always do you feel safe at home: Yes additional social history: ROS ROS ED Constitutional Constitutional ED: Denies chills or fever(s) ENT ENT ED: Denies sore throat Cardiovascular Cardiovascular: Reports palpitations and racing heartbeat; Denies chest pain Respiratory/Chest Respiratory/Chest: Denies cough or dyspnea Gastrointestinal Gastrointestinal: Denies abdominal pain, diarrhea, nausea or vomiting Genitourinary Genitourinary ED: Denies dysuria Musculoskeletal Musculoskeletal: Reports other Details: Positive left knee pain Integumentary Denies rash Neurologic Neurologic: Denies headache(s) Hematologic/Lymphatic Hematologic/Lymphatic: Denies easy bleeding or easy bruising EXAM Physical Exam Const Vital Signs: 07/16/22 22:06 07/16/22 22:50 07/16/22 22:53 Temperature 97.9 F Temperature Source Temporal Pulse Rate 190 H 89 Respiratory Rate 15 14 Respiratory Effort Normal Blood Pressure 115/81 H 122/75 H Blood Pressure Mean 92 90 Pulse Ox 97 95 Oxygen Delivery Method Room Air Room Air 07/17/22 00:03 Temperature Temperature Source Pulse Rate 82 Respiratory Rate 16 Respiratory Effort Blood Pressure 106/70 Blood Pressure Mean 82 Pulse Ox 96 Oxygen Delivery Method Room Air Positive well nourished and well developed General Appearance ED: well developed HEENT Reports dry mucous membranes Mouth ED: Yes dry mucous membranes Mouth: dry mucous membranes Eyes PERRL and EOMs intact bilaterally General Eye ED: Negative for pale conjunctiva Neck supple and no JVD Chest Wall palpation of chest normal Resp normal respiratory effort and clear to auscultation bilaterally Cardio regular rhythm Rate: tachycardic and other Other Details: Radial pulses are plus 2 out of 4 bilaterally are equal and symmetric GI normal to inspection, nondistended, normoactive bowel sounds, non-tender, non- distended and no masses Auscultation: normoactive bowel sounds Palpation: soft Extremity Extremity Narrative: There is mild soft tissue swelling along the right anterior aspect of the knee over top the medial meniscus. There is pain on palpation at the site. Patellar tendon is intact and knee ligaments are stable. No overlying erythema or warmth to suggest infection. No bony deformity or joint effusion. Negative Homans' sign bilaterally Neuro oriented x3 and CN's II-XII intact bilaterally Sensorium / Orientation: alert Psych mental status grossly normal Skin no rashes or lesions noted MDM MDM MDM Narrative Medical decision making narrative: Patient presented to the ER in a tachycardic rate without P waves consistent with SVT. She does report a past medical history of this. Differential diagnosis includes SVT versus electrolyte derangement versus blood loss anemia versus hypothyroidism. Secondary to this a basic work-up was obtained to check for the cause of her symptoms. Labs revealed no clinically significant finding. The patient was given 6 mg of adenosine and had spontaneous cardioversion to normal sinus rhythm. She was watched in the ER for approximately 2 hours without return to SVT and therefore with negative work-up and no recurrence of her cardiac dysrhythmia is otherwise safe for discharge History & Record Review Discussion w/independent historian: Patient Lab Data Attestation: I reviewed the patient's lab results. Labs: Laboratory Results - last 24 hr 07/16/22 07/16/22 22:30 22:30 WBC 9.7 RBC 5.32 Hgb 15.5 H Hct 45.8 MCV 86.1 MCH 29.1 MCHC 33.8 RDW Std Deviation 43.3 RDW Coeff of Prosper 13.9 Plt Count 405 MPV 10.1 Immature Gran % (Auto) 1.900 H Neut % (Auto) 58.9 Lymph % (Auto) 29.9 [place] % (Auto) 8.3 Eos % (Auto) 0.5 Baso % (Auto) 0.5 Absolute Neuts (auto) 5.7 Absolute Lymphs (auto) 2.89 Nucleated RBC % 0 Sodium 144 Potassium 3.5 Chloride 109 H Carbon Dioxide 23.0 Anion Gap 12 BUN 20 H Creatinine 1.05 H Estim Creat Clear Calc 51.05 Est GFR (MDRD) Af Amer 69 Est GFR (MDRD) Non-Af 57 L BUN/Creatinine Ratio 19.0 Glucose 123 H Calcium 9.4 Magnesium 2.4 TSH 1.05 Discharge Plan Triage Chief Complaint: Palpitations ED Provider: Devin Khanna Dx/Rx/DC Orders Clinical Impression: Supraventricular tachycardia, Left knee pain Instructions: Supraventricular Tachycardia Prescriptions: No Action multivitamin tablet 1 tab PO DAILY calcium carbonate [Calcium 500] 500 mg calcium (1,250 mg) tablet 500 mg PO DAILY fexofenadine [Joyce Allergy] 180 mg tablet 180 mg PO DAILY ibuprofen 200 mg tablet 400 mg PO Q6H PRN estradiol 0.01 % (0.1 mg/gram) cream See Rx Instructions vaginal .COMPLEX Qty: 42.5 2RF Rx Instructions: small amount as directed vaginal 3 days per week miscellaneous medical supply Kit 1 ea miscellaneous .6 months Qty: 1 0RF Rx Instructions: 1 handicap palcard for 6 months miscellaneous medical supply Misc 1 ea miscellaneous .1 year Qty: 1 0RF Rx Instructions: Handicap placard for 1 year 12/18/2022 Primary Care Provider: Vicki Garcia Referrals: Vicki Garcia MD [Primary Care Provider] - Activity Restrictions/Additional Instructions: You are in an abnormal heart rhythm called supraventricular tachycardia. The medication given in the ER has resolved this and now you are back in normal sinus rhythm. 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 Your knee exam indicates this is most likely a meniscal injury on the left and therefore follow-up with orthopedic doctor to discuss MRI to further assess this. Disposition Disposition: Home, Self Care Discharge Date/Time: 07/17/22 00:18
[2022-07-17 00:03] VITALS: BP 106/70; PULSE 82; RESP 16; O2SAT 96
== END 2022-07-17 00:18 | disposition home or self-care (01) ==
PROVIDERS: Emergency Provider Emergency Medicine; PCP Internal Medicine; Visit Provider Emergency Medicine
DX: I47.1 Supraventricular tachycardia (principal); E78.00 Pure hypercholesterolemia, unspecified; M25.562 Pain in left knee
CPT/HCPCS: 80048; 83735; 84443; 85025; 93005; 96374; 99282; J7030; A4216; J0153

== ENCOUNTER 2022-08-15 08:30 | Outpatient (RCR) | payer MEDICAID, SELFPAY ==
--- NOTE | 2022-07-01 18:51 | HP.PTEVAL ---
Patient's Visit Information DAVID HELM is a 57 year old F referred to Physical Therapy by Dr. Criss Caruso MD with a diagnosis of MIXED INCONTINENCE AND OVER-ACTIVE BLADDER. Date of Evaluation: 07/01/22 Physical Therapist: Trudi Rapp PT, Cert MDT - Visit Plan Frequency: 1x/Week Duration: 8-12 WKS Plan: *CHECK AUTH NEXT VISIT: RECORD # OF VISITS APPROVED AND EXPIRATION DATE. CHECK CODES APPROVED WITH POC*. PF THERAPY FOR STRENGTHENING, LENGTHENING/RELAXATION AND ENDURANCE TRAINING. PELVIC FLOOR STRENGTHENING. URINARY RETENTION, URGE AND FREQUENCY EDUCATION. HEALTHY BLADDER HABIT EDUCATION. TRAINING IN COORDINATION OF PELVIC FLOOR MUSCULATURE WITH HIP AND CORE (TRANSVERSE ABDOMINUS) MUSCULATURE. POSTURE CORRECTION/STRENGTHENING. CORE STRENGTHENING. LIVIA LE ROM, STRETCHING AND STRENGTHENING. TRAINING IN ABDOMINAL CAVITY PRESSURE MGMT WITH ADL'S. - Subjective Work/Leisure: [employer] DIRECT[employer] AT [employer] 28 HRS A WEEK. Disability: NO. Present symptoms: WEAKNESS IN PELVIC FLOOR AND DIFFICULTY EMPTYING BLADDER. SOME URINARY LEAKING. URINARY URGENCY AND FREQUENCY. LIFTING, PUSHING OR PULLING CAUSES BLADDER TO FEEL LIKE IT DROPS AND IT HURTS IN THE VAGINAL AREA (EVEN LIGHT PUSHING, LIFTING AND PULLING LIKE VACUUMING). Present since: ABOUT 3 YEARS AGO. Pain Scale: WORST 6/10, LEAST 0/10. Currently: 2/10. Is it getting better, worse or staying the same: GETTING WORSE. Commenced as a result of: NO APPARENT REASON. Worse: URGENCY, LIFTING, PUSHING, PULLING. EVEN LIGHT LIFTING. *SLEEPING IN*. Better: GOING TO THE BATHROOM EVERY TWO HRS AT LEAST EVEN AT NIGHT. NOT DRINKING AT NIGHT. Disturbed sleep: YES. Previous history/Previous treatment: 7 BLADDER INFECTIONS IN THE LAST 12 MONTHS. Treatment this episode: PROBIOTIC, CRANBERRY PILLS, VITAMIN C, AVOIDING ACIDIC FOODS. NO ORAL PRESCRIPTION MEDICATION. ESTROIDAL CREAM (X ABOUT 4 MONTHS AND IT SEEMS TO BE HELPING). ONE OR LESS BLADDER INFECTIONS SINCE STARTING CARE WITH DR. CARUSO. Coughing/sneezing/straining: SOMETIMES. Gait: NORMAL BUT SOME L KNEE WEAKNESS. How long can you delay the need to urinate: APPROX 10 MINUTES. Prolapse (Falling out feeling): YES. Frequency of Urination: APPROX EVERY 2 HOURS. Ability to stop urine flow: YES. Ability to initiate urine stream: REPORTS DIFFICULTY EMPTYING BLADDER AND PUSHING THE URINE OUT. Dyspareunia: N/A. Bowel Incontinence: NO. Unexplained weight loss: NO. Imaging: RECENT KIDNEY AND BLADDER ULTRASOUND: EXAM: US RETROPERITONEAL LIMITED, RENAL. CLINICAL INDICATION: HYDRONEPHROSIS. TECHNIQUE: Limited grayscale and color Doppler sonographic evaluation of. the retroperitoneum was performed. COMPARISON: No relevant prior studies available. FINDINGS: RIGHT KIDNEY: Unremarkable. No hydronephrosis. No shadowing calculus. No focal lesion. No perinephric collection is demonstrated. LEFT KIDNEY: Unremarkable. No hydronephrosis. No shadowing calculus. No. focal lesion. No perinephric collection is demonstrated. Bladder volume 56 mL distended, 40 mL empty. No wall thickening or. intraluminal masses are identified. US/Kidney and Bladder. IMPRESSION: Unremarkable limited retroperitoneal ultrasound. . Electronically Signed: Devin Reddy MD. at 0:54 EDT. PMH/Recent major surgery: MAR 2021 L KNEE MENISCUS REPAIR. BOTH OVERIES REMOVED DUE TO CYSTS YEARS AGO. 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 TORE BOTH KNEE MENISCUS SHOVELING SNOW BUT R IS UNREPAIRED. STILL HAVING A LOT OF TROUBLE WITH BOTH KNEES. - Objective THIS PATIENT AMBULATES [employer] INTO PHYSICAL THERAPY WITHOUT ANY AD'S OR LOB. TRANSFERS ARE DIFFICULT DUE TO LIVIA KNEE PAIN - ESPECIALLY TRANSFERRING SIT TO LYING AND REVERSE. Sitting/Standing Posture: POOR. FH. RSH'S. INCREASED KYPHOSIS. DECREASED LORDOSIS BUT NO RELEVANT LATERAL LUMBAR SHIFT. Active Correction of posture: NE. Sensory deficit: LIVIA LE LIGHT TOUCH SENSATION GROSSLY INTACT AND SYMMETRICAL. ROM deficit: LIMITED LIVIA HIP ADDUCTOR TIGHTNESS TESTING DUE TO LIVIA KNEE PAIN. LIVIA HS AND GASTROC SOLEUS TIGHTNESS. LIVIA KNEE ROM MVMT LOSS L > R. Motor deficit: RLE: HIP 4/5, KNEE 4-/5, ANKLE 4/5. LLE: HIP 4-/5, KNEE 3-/5, ANKLE 4/5. Dural Signs: NEGATIVE LIVIA LE'S. Lumbar mvmt loss: flex - NIL. ext - MOD TO PAT. R SG - MOD TO PAT. L SG - MOD TO PAT. Core strength: POOR. Palpation: NO INTERNAL PELVIC EXAM TODAY. PATIENT COMMUNICATES ABILITY TO CONTRACT PELVIC FLOOR MUSCLES X 10 SEC X 1. PELVIC EXAM/TREATMENT MAY BE NEEDED IN THE FUTURE - PATIENT AGREEABLE. FUNCTIONAL SCREEN: Incontinence Impact Questionnaire Score: 8. Urogenital Distress Inventory Score: 18 - Goals Goal 1:: DECREASE C/O PELVIC FLOOR PAIN Goal Time Frame: 4-6 Weeks Goal 2:: DECREASE EPISODES OF URGENCY AND LEAKING TO ONE OR LESS TIMES A DAY. Goal Time Frame: 8-12 Weeks Goal 3:: NORMALIZE VOIDING PATTERNS. Goal Time Frame: 8-12 Weeks Goal 4:: PATIENT WILL DEMONSTRATE/COMMUNICATE 10 CONSISTENT AND CONSECUTIVE 10 SECOND PELVIC FLOOR MUSCLE CONTRACTIONS TO DEMONSTRATE IMPROVED PELVIC FLOOR ENDURANCE. Goal Time Frame: 8-12 Weeks Goal 5:: PATIENT WILL BE INDEP WITH HEP FOR CONTINUED IMPROVEMENT ONCE FORMAL PHYSICAL THERAPY CONCLUDES. - Anticipated Interventions Patient/Client Instruction: Educate patient on: Condition, Plan of Care, Risk Factors For the Purpose of:: To improve self management Therapeutic Exercise to Include: Strength training, Endurance training, Flexibilty training, Neuromotor development, Relaxation training For the Purpose of:: To improve muscle performance and motor function, To increase tolerance to activity/condition/position, To improve ability of physical actions for home/community/work/leisure Thank you for the opportunity to evaluate your patient. For Medicare and Medicare HMO plans, please review the plan of care and approve it. It will need to be FAXED BACK to us at [phone] for Medicare purposes. For Medicare only, by signing this I certify the plan of care. Please let me know if there are questions or concerns regarding this plan of care. Physician Signature: Date:
--- NOTE | 2022-08-15 08:59 | HP.PTDCSUM ---
Discharge Summary D/C summary: It has been my pleasure to treat DAVID HELM referred by Dr. Criss Caruso MD, with the diagnosis of MIXED INCONTINENCE AND OVER-ACTIVE BLADDER for a total of 3 visit(s). Discharge Date: Please see the following information for a summary of their discharge status. Subjective Subjective: PATIENT REPORTS HER HEP IS GOING WELL. STATES SHE HASN'T HAD ANY ACCIDENTS! STATES SHE WANTS TO LEARN SOME NEW EX'S TODAY BUT CAN NOT COME BACK AFTER TODAY DUE TO HER INSURANCE RUNNING OUT. PATIENT REPORTS SHE FEELS LIKE SHE HAS BEEN GIVEN GOOD TOOLS TO MANAGE HER INCONTINENCE NOW. I FEEL STRONGER. STATES SHE IS VOIDING ABOUT EVERY 2.5 TO 3 HOURS NOW. PATIENT REPORTS RECENTLY SEEING HER PCP FOR EXCESSIVE THIRST - THEY ARE TRYING TO FIGURE OUT WHY. GETTING UP ONCE AT NIGHT TO URINATE AND SHE RELATES IT TO NOT BEING ABLE TO STOP FLUID INTAKE IN EVENINGS. Overall Improvement % Improvement: 60 Objective Objective/Function: PATIENT DEMONSTRATED/COMMUNICATED A GOOD UNDERSTANDING OF ALL INSTRUCTIONS AFTER GIVEN. WRITTEN HEP INSTRUCTIONS PROVIDED. Goals Goal 1:: DECREASE C/O PELVIC FLOOR PAIN Goal Progress: Progressing Goal 2:: DECREASE EPISODES OF URGENCY AND LEAKING TO ONE OR LESS TIMES A DAY. Goal Progress: Progressing Goal 3:: NORMALIZE VOIDING PATTERNS. Goal Progress: Progressing Goal 4:: PATIENT WILL DEMONSTRATE/COMMUNICATE 10 CONSISTENT AND CONSECUTIVE 10 SECOND PELVIC FLOOR MUSCLE CONTRACTIONS TO DEMONSTRATE IMPROVED PELVIC FLOOR ENDURANCE. Goal Progress: Progressing Goal 5:: PATIENT WILL BE INDEP WITH HEP FOR CONTINUED IMPROVEMENT ONCE FORMAL PHYSICAL THERAPY CONCLUDES. Goal Progress: Progressing Plan Plan: D/C AT PATIENTS REQUEST DUE TO INSURANCE EXPIRING TOMORROW. D/C Information d/c sentence: If there are questions or concerns regarding this patient's physical therapy, please feel free to call me at [phone]. Thank you for the referral of this patient. Sincerely, Trudi Rapp, PT, Cert MDT
== END 2022-08-15 19:00 | disposition home or self-care (01) ==
LOC: PT 08:30
PROVIDERS: PCP Internal Medicine; Referring Provider Urology; Visit Provider Urology
DX: N39.46 Mixed incontinence (principal); N32.81 Overactive bladder
CPT/HCPCS: 97162; 97530